=== PATIENT | male | born 1965 | race Caucasian/White ===

== ENCOUNTER 2017-01-04 22:15 | Inpatient (IN) | payer OTHER ==
[2017-01-04] MEDS ORDERED: ATROVENT IH ONE ×2 (22:31→22:36)
[2017-01-04] MEDS ORDERED: PROVENTIL IH ONE ×2 (22:31→22:36)
[2017-01-04] MEDS ORDERED: CATAPRES PO ONE (22:41)
--- NOTE | 2017-01-04 23:35 | XRay Report ---
FINAL REPORT PROCEDURE: XR CHEST 1V AP TECHNIQUE: Chest radiograph anteroposterior view. CPT 56874 HISTORY: Shortness of breath COMPARISON: No prior studies are available for comparison. FINDINGS: Heart: Normal. Mediastinum/Vessels: Normal. Lungs/Pleural space: The lungs are well-expanded. There are right perihilar and lower lobe infiltrates. There are no effusions or pneumothoraces.. Bony thorax: No acute osseous abnormality. Life support devices: None. IMPRESSION: The heart size is within normal limits. The lungs are well-expanded. There are right perihilar and lower lobe infiltrates. There are no effusions or pneumothoraces.
[2017-01-04 23:54] LABS: Hematocrit 35.7 % (35.5-45.6); Hemoglobin 11.8 gm/dl (11.8-15.2); Mean Corpuscular HGB Conc 33 % (32-34); Mean Corpuscular Hemoglobin 29 pg (28-32); Mean Corpuscular Volume 88 fl (84-94); Platelet Count 224 K/mm3 (140-440); Red Blood Count 4.04 M/mm3 (3.65-5.03); Red Cell Distribution Width 14.2 % (13.2-15.2); White Blood Count 9.9 K/mm3 (4.5-11.0)
[2017-01-05 00:08] LABS: Calcium 8.5 mg/dL (8.4-10.2)
[2017-01-05 00:09] LABS: Chloride 96.2 mmol/L (98-107); Potassium 4.1 mmol/L (3.6-5.0)
[2017-01-05] MEDS ORDERED: ZITHROMAX 500 MG in NACL 0.9% 250ML 250 ML IV ONE (02:33)
--- NOTE | 2017-01-05 02:33 | Emergency Department Report ---
ED Shortness of Breath HPI - General Chief Complaint: Dyspnea/Respdistress Stated Complaint: DIFFICULTY BREATHING Time Seen by Provider: 01/05/17 01:55 Source: patient, family (DAUGHTER), EMS Mode of arrival: Stretcher Limitations: No Limitations - History of Present Illness Initial Comments: PT WOKE UP YESTERDAY MORNING SHORT OF BREATH . HE HAS NOT HAD HIS BLOOD PRESSURE MEDICATION FOR MORE THAN 5 MONTHS. HE DENIES CHEST PAIN, HIS PRESSURE WAS 219/126 ON ARRIVAL AT THIS TIME IT IS 175/96. HE ADMITS TO LEG SWELLING ALL HIS LIFE. MD Complaint: shortness of breath -: Sudden Severity: severe Improves With: oxygen, rest Worsens With: movement Known History Of: other (htn) Associated Symptoms: denies other symptoms Treatments Prior to Arrival: none - Related Data Home Oxygen Therapy: No Allergies Allergy/AdvReac Type Severity Reaction Status Date / Time shellfish derived Allergy Anaphylaxis Verified 01/04/17 22:27 ED Review of Systems ROS: Stated complaint: DIFFICULTY BREATHING Other details as noted in HPI Constitutional: denies: chills, fever Eyes: denies: eye pain, eye discharge, vision change ENT: denies: ear pain, throat pain Respiratory: shortness of breath, SOB with exertion, SOB at rest. denies: cough , wheezing Cardiovascular: denies: chest pain, palpitations Endocrine: no symptoms reported Gastrointestinal: denies: abdominal pain, nausea, diarrhea Genitourinary: denies: urgency, dysuria Musculoskeletal: other (leg swelling). denies: back pain, joint swelling, arthralgia Skin: denies: rash, lesions Neurological: denies: headache, weakness, paresthesias Psychiatric: denies: anxiety, depression Hematological/Lymphatic: denies: easy bleeding, easy bruising ED Past Medical Hx - Past Medical History Hx Hypertension: Yes Hx Diabetes: Yes Hx Asthma: Yes - Surgical History Past Surgical History?: No - Social History Smoking Status: Never Smoker Substance Use Type: None ED Physical Exam - General Limitations: No Limitations General appearance: alert, in no apparent distress - Head Head exam: Present: atraumatic, normocephalic - Eye Eye exam: Present: normal appearance - ENT ENT exam: Present: mucous membranes moist - Neck Neck exam: Present: normal inspection - Respiratory Respiratory exam: Present: respiratory distress - Cardiovascular Cardiovascular Exam: Present: regular rate, normal rhythm, tachycardia (AT TIMES ). Absent: systolic murmur, diastolic murmur, rubs, gallop - GI/Abdominal GI/Abdominal exam: Present: soft, normal bowel sounds - Rectal Rectal exam: Present: deferred - Extremities Exam Extremities exam: Present: normal inspection, full ROM, pedal edema (ON RIGHT LEG ONLY) - Back Exam Back exam: Present: normal inspection - Neurological Exam Neurological exam: Present: alert, oriented X3, CN II-XII intact - Psychiatric Psychiatric exam: Present: normal affect, normal mood - Skin Skin exam: Present: warm, dry, intact, normal color, other (DRY SKIN). Absent: rash ED Course Vital Signs 01/04/17 01/04/17 01/04/17 22:21 22:23 22:25 Temperature Pulse Rate 98 H 98 H 96 H Respiratory 24 16 17 Rate Blood Pressure 219/126 219/126 Blood Pressure [Left] O2 Sat by Pulse 98 100 Oximetry 01/04/17 01/04/17 01/04/17 22:27 22:29 22:32 Temperature Pulse Rate 101 H 98 H Respiratory 22 21 24 Rate Blood Pressure 219/126 219/126 Blood Pressure [Left] O2 Sat by Pulse 100 100 97 Oximetry 01/04/17 01/04/17 01/04/17 22:39 22:54 23:27 Temperature 98.4 F Pulse Rate 97 H 97 H 101 H Respiratory 21 13 Rate Blood Pressure 219/133 225/113 Blood Pressure 219/133 [Left] O2 Sat by Pulse 98 98 Oximetry 01/04/17 01/04/17 01/04/17 23:29 23:30 23:31 Temperature Pulse Rate 100 H 102 H 100 H Respiratory 18 20 21 Rate Blood Pressure 225/113 211/114 211/114 Blood Pressure [Left] O2 Sat by Pulse 98 99 99 Oximetry 01/04/17 01/04/17 01/04/17 23:33 23:34 23:35 Temperature Pulse Rate 102 H 96 H 97 H Respiratory 14 17 18 Rate Blood Pressure 211/114 211/114 211/114 Blood Pressure [Left] O2 Sat by Pulse 96 98 98 Oximetry 01/04/17 01/04/17 01/04/17 23:37 23:39 23:41 Temperature Pulse Rate 96 H 96 H 99 H Respiratory 19 19 20 Rate Blood Pressure 211/114 211/114 211/114 Blood Pressure [Left] O2 Sat by Pulse 100 99 99 Oximetry 01/04/17 01/04/17 01/04/17 23:43 23:45 23:47 Temperature Pulse Rate 101 H 99 H 98 H Respiratory 15 21 20 Rate Blood Pressure 211/114 211/114 211/114 Blood Pressure [Left] O2 Sat by Pulse 98 100 98 Oximetry 01/04/17 01/04/17 01/04/17 23:49 23:50 23:51 Temperature Pulse Rate 100 H 99 H 102 H Respiratory 22 23 18 Rate Blood Pressure 211/114 211/114 211/114 Blood Pressure [Left] O2 Sat by Pulse 98 99 99 Oximetry 01/04/17 01/04/17 01/04/17 23:53 23:55 23:57 Temperature Pulse Rate 102 H 99 H 101 H Respiratory 22 20 21 Rate Blood Pressure 211/114 211/114 211/114 Blood Pressure [Left] O2 Sat by Pulse 100 99 99 Oximetry 01/04/17 01/05/17 01/05/17 23:59 00:00 00:01 Temperature Pulse Rate 106 H 105 H 105 H Respiratory 23 20 22 Rate Blood Pressure 211/114 233/125 233/125 Blood Pressure [Left] O2 Sat by Pulse 99 100 Oximetry 01/05/17 01/05/17 01/05/17 00:03 00:05 00:07 Temperature Pulse Rate 102 H 104 H 102 H Respiratory 22 23 18 Rate Blood Pressure 233/125 233/125 233/125 Blood Pressure [Left] O2 Sat by Pulse 99 97 99 Oximetry 01/05/17 01/05/17 01/05/17 00:09 00:11 00:13 Temperature Pulse Rate 99 H 101 H 101 H Respiratory 21 22 22 Rate Blood Pressure 233/125 233/125 233/125 Blood Pressure [Left] O2 Sat by Pulse 98 99 100 Oximetry 01/05/17 01/05/17 01/05/17 00:15 00:17 00:19 Temperature Pulse Rate 104 H 105 H 107 H Respiratory 23 21 21 Rate Blood Pressure 233/125 233/125 233/125 Blood Pressure [Left] O2 Sat by Pulse 96 92 94 Oximetry 01/05/17 01/05/17 01/05/17 00:21 00:23 00:24 Temperature Pulse Rate 106 H 107 H 108 H Respiratory 20 20 20 Rate Blood Pressure 233/125 233/125 233/125 Blood Pressure [Left] O2 Sat by Pulse 92 92 91 Oximetry 01/05/17 01/05/17 01/05/17 00:26 00:28 00:30 Temperature Pulse Rate 108 H 103 H 106 H Respiratory 21 20 21 Rate Blood Pressure 233/125 233/125 233/125 Blood Pressure [Left] O2 Sat by Pulse 93 89 90 Oximetry 01/05/17 01/05/17 01/05/17 00:31 00:33 00:35 Temperature Pulse Rate 108 H 104 H 105 H Respiratory 21 21 21 Rate Blood Pressure Blood Pressure [Left] O2 Sat by Pulse 93 91 89 Oximetry 01/05/17 01/05/17 01/05/17 00:37 00:39 00:41 Temperature Pulse Rate 105 H 105 H 104 H Respiratory 21 22 22 Rate Blood Pressure 187/105 Blood Pressure [Left] O2 Sat by Pulse 90 89 90 Oximetry 01/05/17 01/05/17 01/05/17 00:43 00:45 00:47 Temperature Pulse Rate 104 H 104 H 101 H Respiratory 21 19 22 Rate Blood Pressure 187/105 187/105 187/105 Blood Pressure [Left] O2 Sat by Pulse 91 88 100 Oximetry 01/05/17 01/05/17 01/05/17 00:49 00:51 00:53 Temperature Pulse Rate 99 H 99 H 101 H Respiratory 22 21 20 Rate Blood Pressure 187/105 187/105 187/105 Blood Pressure [Left] O2 Sat by Pulse 100 100 100 Oximetry 01/05/17 00:55 Temperature Pulse Rate 101 H Respiratory 21 Rate Blood Pressure 187/105 Blood Pressure [Left] O2 Sat by Pulse 100 Oximetry ED Medical Decision Making - Lab Data Result diagrams: 01/04/17 23:30 01/04/17 23:30 - EKG Data -: EKG Interpreted by [place] EKG shows normal: sinus rhythm, axis, QRS complexes Rate: normal - EKG Data Interpretation: nonspecific ST-T wave dixon (left atrial enlargement), LVH - Radiology Data Radiology results: report reviewed (CXR; RIGHT PERIHILAR AND RIGHT LOWER LOBE INFILTRATE), image reviewed (CT ofchest/abdomen: bilateral pleural effusion, pulmonary edema) Critical care time in (mins) excluding proc time.: 30 Critical care attestation.: If time is entered above; I have spent that time in minutes in the direct care of this critically ill patient, excluding procedure time. luz ED Disposition Clinical Impression: Acute dyspnea, Pleural effusion due to CHF (congestive heart failure), LVH ( left ventricular hypertrophy), LAE (left atrial enlargement) Acute CHF Qualifiers: Congestive heart failure type: unspecified congestive heart failure type Qualified Code(s): I50.9 - Heart failure, unspecified Renal failure Qualifiers: Renal failure chronicity: acute Acute renal failure type: unspecified Qualified Code(s): N17.9 - Acute kidney failure, unspecified Disposition: 09 OP ADMIT IP TO THIS HOSP Is pt being admited?: Yes Does the pt Need Aspirin: No Condition: Serious Referrals: PRIMARY CARE, [Primary Care Provider] - 3-5 Days Time of Disposition: 04:35 (case reviewed with dr tello and he will admit the pt to the hospital)
[2017-01-05] MEDS ORDERED: ROCEPHIN/NS 1 GM/50 ML 1 GM/50 ML BAG IV ONE (03:33)
--- NOTE | 2017-01-05 04:53 | Cat Scan Report ---
FINAL REPORT PROCEDURE: CT CHEST WO CON TECHNIQUE: Computerized axial tomography of the chest was performed without contrast material. This study is performed without intravenous contrast and the sensitivity for pathology, including neoplasms, adenopathy, abscess, pulmonary embolism and aortic dissection, is reduced. HISTORY: SOB,CHEST PAIN COMPARISON: No prior studies are available for comparison. TECHNICAL QUALITY: Satisfactory. FINDINGS: Heart and pericardium: Normal. Thoracic aorta: Normal. Pulmonary vasculature: Normal. Lymph nodes: There are prominent mediastinal lymph nodes.. Lungs: Lungs are well-expanded. There is bilateral pulmonary edema greater at the lung bases.. Pleural space: There are small bilateral pleural effusions. There are no pneumothoraces.. Musculoskeletal structures: No significant abnormality. Upper abdominal structures: There is incidental partially imaged low-density mass in the right adrenal gland measuring 1.7 x 2.8 centimeters most likely representing an incidental adrenal adenoma.. IMPRESSION: Heart size is normal. There are prominent mediastinal lymph nodes.. Lungs are well-expanded. There is bilateral pulmonary edema greater at the lung bases.. This suggests possible congestive heart failure. There are small bilateral pleural effusions. There are no pneumothoraces.. There is incidental partially imaged low-density mass in the right adrenal gland measuring 1.7 x 2.8 centimeters most likely representing an incidental adrenal adenoma.. .
--- NOTE | 2017-01-05 05:22 | Cat Scan Report ---
FINAL REPORT PROCEDURE: CT ABDOMEN PELVIS WO CON TECHNIQUE: Computerized axial tomography of the abdomen and pelvis was performed without intravenous contrast. This study is performed without intravascular contrast material and its sensitivity for abdominal and pelvic pathology, including neoplasms, inflammation, abscess, free fluid, thrombosis, arterial dissection and infarction, is reduced compared with a contrast enhanced study. HISTORY: EXAMINE AORTA COMPARISON: No prior studies are available for comparison. FINDINGS: Visualized lower thorax: There is pulmonary edema at the lung bases. There are small bilateral pleural effusions.. Liver: Normal size and attenuation. Spleen: Normal size and attenuation. Gallbladder and biliary system: Normal. Pancreas: Normal. Adrenals: There is a 2.3 centimeter adenoma in the right adrenal gland.. Kidneys: There are no kidney stones. There is no hydronephrosis.. GI tract: There is no bowel obstruction, colitis or enteritis. The appendix is normal.. Lymph nodes and mesentery: Normal. Vasculature: Normal. Bladder: Urinary bladder wall is thickened. There is no mass.. Reproductive organs: Normal. Peritoneum: There is no ascites or free air, abscess or adenopathy.. Musculoskeletal structures: No significant abnormality. There is degenerative disc change at L5-S1. Other: There is an umbilical hernia defect containing fat only.. IMPRESSION: There is pulmonary edema at the lung bases. There are small bilateral pleural effusions.. There is a 2.3 centimeter adenoma in the right adrenal gland.. There are no kidney stones. There is no hydronephrosis.. There is no bowel obstruction, colitis or enteritis. The appendix is normal.. Urinary bladder wall is thickened. There is no mass.. There is no ascites or free air, abscess or adenopathy.. There is an umbilical hernia defect containing fat only.. .
[2017-01-05] MEDS ORDERED: LASIX IV ONE ×2 (05:50→08:12)
[2017-01-05] MEDS ORDERED: DULCOLAX PR PRN (08:24)
--- NOTE | 2017-01-05 08:33 | Nuclear Medicine Report ---
LUNG SCAN, VENTILATION AND PERFUSION: History: Short of breath, elevated d-dimer. Technique: 5mci of Tc99m MAA was infused for the perfusion images. 15mci XE 133 gas was inhaled for the ventilatory images. Correlation is made with a chest x-ray dated 01/04/17 at 2320 hrs. Findings: Inhalation of Xenon gas demonstrates a normal distribution of the activity throughout both lungs. The wash out phases demonstrates mild retention of the radiotracer in the left lower lobe. After injection of Technetium 99m macroaggregated albumin gamma camera imaging of the lungs in multiple projections demonstrates normal pulmonary contours with a homogeneous distribution of activity. No focal areas of perfusion deficiency are identified. IMPRESSION: Low probability for pulmonary embolus.
--- NOTE | 2017-01-05 08:37 | History and Physical Report ---
<DAISY SCHULTE - Last Filed: 01/05/17 15:51> History of Present Illness Date of examination: 01/05/17 Date of admission: 01/05/2017 Chief complaint: Shortness of breath History of present illness: Patient is a 53 years old Afriacn Faroese male with past medical history congestive heart failure and hypertension, who, present to the Emergency Department difficulty of breathing. Patient developed difficulty of breathing yesterday and he has had progressive worsening of shortness of breath. To the point he felt like he could not catch his breath and his daughter brought him to the Emergency Department. Edema to bilateral lower extremity but stated that his legs are always swelling for the past few years. Patient denies he has had no fevers, chills, or night sweats. No hx of recurrent pneumonia. He has no sick contact, TB exposure. Patient non-complains with his antihypertensive medications for the past 5 month due to financial difficulties. Past History Past Medical History: heart failure, hypertension Past Surgical History: No surgical history Social history: denies: smoking, alcohol abuse Family history: CAD, hypertension Medications and Allergies Allergies Allergy/AdvReac Type Severity Reaction Status Date / Time shellfish derived Allergy Anaphylaxis Verified 01/04/17 22:27 Home Medications Medication Instructions Recorded Confirmed Last Taken Type No Known Home Medications [No 01/05/17 01/05/17 Unknown History Reported Home Medications] Active Meds: Active Medications Acetaminophen (Tylenol) 650 mg PO Q4H PRN PRN Reason: Pain MILD(1-3)/Fever >100.5/SANTOS Albuterol (Proventil) 5 mg IH ONCE ONE Stop: 01/05/17 08:27 Amlodipine Besylate (Norvasc) 10 mg PO ONCE ONE Stop: 01/05/17 08:31 Bisacodyl (Dulcolax) 10 mg SD QDAY PRN PRN Reason: Constipation unrelieved by MOM Enoxaparin Sodium (Lovenox) 40 mg SUB-Q QDAY [facility] Hydralazine HCl (Apresoline) 10 mg IV Q4H PRN PRN Reason: SBP>160 Azithromycin 500 mg/ Sodium (Chloride) 250 mls @ 250 mls/hr IV Q24HR [facility] Ceftriaxone Sodium (Rocephin/Ns 1 Gm/50 Ml) 1 gm in 50 mls @ 100 mls/hr IV Q24HR [facility] PRN Reason: Protocol Review of Systems Constitutional: no weight loss, no weight gain, no fever Ears, nose, mouth and throat: no nasal congestion, no nasal discharge, no sinus pressure Cardiovascular: shortness of breath, dyspnea on exertion, paroxysmal nocturnal dyspnea (on), no rapid/irregular heart beat, no edema, no syncope Respiratory: shortness of breath, dyspnea on exertion Gastrointestinal: no diarrhea, no constipation, no change in bowel habits, no hematemesis Genitourinary Male: no discharge, no urinary frequency, no urinary hesitancy Rectal: no incontinence, no bleeding Musculoskeletal: no neck stiffness, no shooting arm pain, no arm numbness/ tingling, no low back pain, no shooting leg pain Integumentary: no redness, no sores, no wounds Neurological: no paralysis, no weakness, no parathesias, no numbness Psychiatric: no insomnia, no hypersomnia, no change in appetite, no change in libido Endocrine: no cold intolerance, no heat intolerance, no polyphagia, no excessive thirst Hematologic/Lymphatic: no easy bruising, no easy bleeding Allergic/Immunologic: no urticaria, no allergic rhinitis Exam - Constitutional Vitals: Temp Pulse Resp BP Pulse Ox 98.4 F 101 H 21 187/105 100 01/04/17 22:39 01/05/17 00:55 01/05/17 00:55 01/05/17 00:55 01/05/17 00:55 General appearance: Present: mild distress, other (on 7LNC with Spo2 >95%) - EENT Eyes: Present: PERRL ENT: hearing intact - Neck Neck: Present: supple - Respiratory Respiratory effort: normal Respiratory: bilateral: wheezing - Cardiovascular Rhythm: regular Heart Sounds: Present: S1 & S2 - Extremities Extremity abnormal: edema (bilateral lower extremity) - Abdominal General gastrointestinal: Present: soft, non-tender Male genitourinary: Present: deferred - Rectal Rectal Exam: deferred - Integumentary Integumentary: Present: clear, warm, dry - Musculoskeletal Musculoskeletal: strength equal bilaterally - Psychiatric Psychiatric: appropriate mood/affect - Neurologic Neurologic: CNII-XII intact - Allied Health Allied health notes reviewed: nursing Results - Labs CBC & Chem 7: 01/04/17 23:30 01/04/17 23:30 Labs: Laboratory Last Values WBC 9.9 K/mm3 (4.5-11.0) 01/04/17 23:30 RBC 4.04 M/mm3 (3.65-5.03) 01/04/17 23:30 Hgb 11.8 gm/dl (11.8-15.2) 01/04/17 23:30 Hct 35.7 % (35.5-45.6) 01/04/17 23:30 MCV 88 fl (84-94) 01/04/17 23:30 MCH 29 pg (28-32) 01/04/17 23:30 MCHC 33 % (32-34) 01/04/17 23:30 RDW 14.2 % (13.2-15.2) 01/04/17 23:30 Plt Count 224 K/mm3 (140-440) 01/04/17 23:30 Lymph % (Auto) Internal Grinder Tender 01/04/17 23:30 [place] % (Auto) Internal Grinder Tender 01/04/17 23:30 Eos % (Auto) Internal Grinder Tender 01/04/17 23:30 Baso % (Auto) Internal Grinder Tender 01/04/17 23:30 Lymph # Internal Grinder Tender 01/04/17 23:30 [place] # Internal Grinder Tender 01/04/17 23:30 Eos # Internal Grinder Tender 01/04/17 23:30 Baso # Internal Grinder Tender 01/04/17 23:30 Seg Neutrophils % Internal Grinder Tender 01/04/17 23:30 Seg Neutrophils # Internal Grinder Tender 01/04/17 23:30 D-Dimer 6567.37 ng/mlDDU (0-234) H 01/05/17 02:35 Sodium 137 mmol/L (137-145) 01/04/17 23:30 Potassium 4.1 mmol/L (3.6-5.0) 01/04/17 23:30 Chloride 96.2 mmol/L (98-107) L 01/04/17 23:30 Carbon Dioxide 23 mmol/L (22-30) 01/04/17 23:30 Anion Gap 22 mmol/L 01/04/17 23:30 BUN 44 mg/dL (9-20) H 01/04/17 23:30 Creatinine 5.5 mg/dL (0.8-1.5) H 01/04/17 23:30 Estimated GFR 11 ml/min 01/04/17 23:30 BUN/Creatinine Ratio 8 % 01/04/17 23:30 Glucose 289 mg/dL (75-100) H 01/04/17 23:30 Calcium 8.5 mg/dL (8.4-10.2) 01/04/17 23:30 Troponin T 0.076 ng/mL (0.00-0.029) H 01/04/17 23:30 NT-Pro-B Natriuret Pep 4126 pg/mL (0-450) H 01/05/17 02:35 Triglycerides 120 mg/dL (2-149) 01/04/17 23:30 Cholesterol 196 mg/dL (50-199) 01/04/17 23:30 LDL Cholesterol Direct 112 mg/dL (50-130) 01/04/17 23:30 HDL Cholesterol 60 mg/dL (40-59) H 01/04/17 23:30 Cholesterol/HDL Ratio 3.26 % 01/04/17 23:30 - Imaging and Cardiology Chest x-ray: image reviewed (there are right perihilar and lower lobe infiltrates. No effusion or pneumothorax) Assessment and Plan Assessment and plan: Patient is a 53 years old Afriacn Faroese male with past medical history congestive heart failure and hypertension, who, present to the Emergency Department difficulty of breathing. Patient developed difficulty of breathing yesterday and he has had progressive worsening of shortness of breath. Acute respiratory failure with hypoxia Secondary to congestive heart failure. Patient oxygen saturation improved with 2LNC; currently SPO2 98%. No acute respiratory distress noted. Aggressive Nebulizers/Inhalers ABG when necessary Oxygen supplement Supportive care Acute on chronic congestive heart failure Echocardiogram ordered Restart on Diuresis, beta blockers and ACEI/ARB Strict I&O's and daily weights Low-sodium/cardiac diet/fluid restriction Closely monitor electrolytes Cardiology evaluation Hypertensive urgency Patient noncompliance with antihypertensive medication Started on hydralazine and isosorbide. IV hydralazine for SBP>160 Closely monitor blood pressure Acute renal failure/ vasomotor nephropathy Avoid nephrotoxicity Renal ultrasound Repeat [facility] Nephrology financial reporting consultant Pneumonia Chest xray revealed right perihilar and lower lobe infiltrates Initiated empiric IV Rocephin and azithromycin. We will discontinue if no fever Supportive care Elevated D-dimer VQ scan no evidence of PE VL LE doppler ordered Elevated troponin Most likely due to CHF We will get serial troponin Cardiology consulted DVT prophylaxis Heparin Advance Directives: Yes VTE prophylaxis?: Chemical Contraindication Mechanical VTE Prophylaxis: Treatment Not Indicated Plan of care discussed with patient/family: Yes <FRITZ REINA Tam - Last Filed: 01/05/17 18:04> History of Present Illness Date of admission: 01/05/17 08:24 Medications and Allergies Active Meds: Active Medications Acetaminophen (Tylenol) 650 mg PO Q4H PRN PRN Reason: Pain MILD(1-3)/Fever >100.5/SANTOS Atorvastatin Calcium (Lipitor) 40 mg PO QHS [facility] Bisacodyl (Dulcolax) 10 mg SD QDAY PRN PRN Reason: Constipation unrelieved by MOM Carvedilol (Coreg) 12.5 mg PO BID [facility] Last Admin: 01/05/17 15:37 Dose: 12.5 mg Enoxaparin Sodium (Lovenox) 30 mg SUB-Q QDAY [facility] Last Admin: 01/05/17 13:44 Dose: 30 mg Hydralazine HCl (Apresoline) 10 mg IV Q4H PRN PRN Reason: SBP>160 Last Admin: 01/05/17 15:33 Dose: 10 mg Hydralazine HCl (Apresoline) 50 mg PO Q8HR [facility] Last Admin: 01/05/17 13:46 Dose: 50 mg Ceftriaxone Sodium (Rocephin/Ns 1 Gm/50 Ml) 1 gm in 50 mls @ 100 mls/hr IV Q24HR [facility] PRN Reason: Protocol Azithromycin 500 mg/ Sodium (Chloride) 250 mls @ 250 mls/hr IV DAILY [facility] Isosorbide Mononitrate (Imdur) 60 mg PO QDAY [facility] Last Admin: 01/05/17 17:40 Dose: 60 mg Exam - Constitutional Vitals: Temp Pulse Resp BP Pulse Ox 97.9 F 91 H 17 186/84 99 01/05/17 16:49 01/05/17 17:34 01/05/17 16:49 01/05/17 16:49 01/05/17 16:49 Results - Labs CBC & Chem 7: 01/04/17 23:30 01/04/17 23:30 Labs: Laboratory Last Values WBC 9.9 K/mm3 (4.5-11.0) 01/04/17 23:30 RBC 4.04 M/mm3 (3.65-5.03) 01/04/17 23:30 Hgb 11.8 gm/dl (11.8-15.2) 01/04/17 23:30 Hct 35.7 % (35.5-45.6) 01/04/17 23:30 MCV 88 fl (84-94) 01/04/17 23:30 MCH 29 pg (28-32) 01/04/17 23:30 MCHC 33 % (32-34) 01/04/17 23:30 RDW 14.2 % (13.2-15.2) 01/04/17 23:30 Plt Count 224 K/mm3 (140-440) 01/04/17 23:30 Lymph % (Auto) Internal Grinder Tender 01/04/17 23:30 [place] % (Auto) Internal Grinder Tender 01/04/17 23:30 Eos % (Auto) Internal Grinder Tender 01/04/17 23:30 Baso % (Auto) Internal Grinder Tender 01/04/17 23:30 Lymph # Internal Grinder Tender 01/04/17 23:30 [place] # Internal Grinder Tender 01/04/17 23:30 Eos # Internal Grinder Tender 01/04/17 23:30 Baso # Internal Grinder Tender 01/04/17 23:30 Seg Neutrophils % Internal Grinder Tender 01/04/17 23:30 Seg Neutrophils # Internal Grinder Tender 01/04/17 23:30 D-Dimer 6567.37 ng/mlDDU (0-234) H 01/05/17 02:35 Sodium 137 mmol/L (137-145) 01/04/17 23:30 Potassium 4.1 mmol/L (3.6-5.0) 01/04/17 23:30 Chloride 96.2 mmol/L (98-107) L 01/04/17 23:30 Carbon Dioxide 23 mmol/L (22-30) 01/04/17 23:30 Anion Gap 22 mmol/L 01/04/17 23:30 BUN 44 mg/dL (9-20) H 01/04/17 23:30 Creatinine 5.5 mg/dL (0.8-1.5) H 01/04/17 23:30 Estimated GFR 11 ml/min 01/04/17 23:30 BUN/Creatinine Ratio 8 % 01/04/17 23:30 Glucose 289 mg/dL (75-100) H 01/04/17 23:30 Calcium 8.5 mg/dL (8.4-10.2) 01/04/17 23:30 Troponin T 0.076 ng/mL (0.00-0.029) H 01/04/17 23:30 NT-Pro-B Natriuret Pep 4126 pg/mL (0-450) H 01/05/17 02:35 Triglycerides 120 mg/dL (2-149) 01/04/17 23:30 Cholesterol 196 mg/dL (50-199) 01/04/17 23:30 LDL Cholesterol Direct 112 mg/dL (50-130) 01/04/17 23:30 HDL Cholesterol 60 mg/dL (40-59) H 01/04/17 23:30 Cholesterol/HDL Ratio 3.26 % 01/04/17 23:30 Assessment and Plan Assessment and plan: I saw and evaluated the patient. I agree with the findings and the plan of care as documented in the Nurse Practitioner's~note, with the following corrections and additions. patient states no prior renal disease, last hospitalization was a year ago in [place]. He ran out of his meds few weeks ago. will hold ACEI and HCTZ. gradually control BP with about 25% decrease in first 24 hours goal.
[2017-01-05] MEDS ORDERED: LOVENOX SUB-Q SCH (10:00)
[2017-01-05] MEDS ORDERED: LOVENOX SUB-Q ONE (10:53)
[2017-01-05] MEDS ORDERED: NORVASC ONE (10:53)
[2017-01-05] MEDS ORDERED: ZITHROMAX 500 MG in NACL 0.9% 250ML 250 ML IV SCH (11:00)
[2017-01-05] MEDS ORDERED: NORVASC PO ONE (11:00)
[2017-01-05] MEDS ORDERED: PROVENTIL IH ONE ×2 (11:00→13:43)
[2017-01-05] MEDS: LOVENOX SUB-Q SCH (13:44)
[2017-01-05] MEDS: APRESOLINE PO SCH ×2 (13:46→21:40)
[2017-01-05] MEDS: APRESOLINE IV PRN (15:33)
--- NOTE | 2017-01-05 15:34 | Consultation ---
History of Present Illness Consult date: 01/05/17 Requesting physician: DAISY SCHULTE Consult reason: congestive heart failure History of present illness: The pt is a 51 YO male with a past medical history significant for HTN and DM. He is previously unknown to our practice. 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 He states that he has not taken any anti- hypertensive medications in 5 months due to financial difficulties. He denies any chest pain, palpitations, n/v, diaphoresis, dizziness or syncope. CXR following admission shows pulm edema; pro-BNP 4100; serum Cr. 5.5; serum K+ 4.1 ; DDimer elevated but V/Q scan with low probability for PE. BPs following admission were found to be elevated with admission BP 219/126. Pt denies any prior cardiac workup. Past History Past Medical History: diabetes, hypertension Past Surgical History: No surgical history Social history: denies: smoking, alcohol abuse Family history: CAD, hypertension Medications and Allergies Allergies Allergy/AdvReac Type Severity Reaction Status Date / Time shellfish derived Allergy Anaphylaxis Verified 01/04/17 22:27 Home Medications Medication Instructions Recorded Confirmed Last Taken Type No Known Home Medications [No 01/05/17 01/05/17 Unknown History Reported Home Medications] Active Meds: Active Medications Acetaminophen (Tylenol) 650 mg PO Q4H PRN PRN Reason: Pain MILD(1-3)/Fever >100.5/SANTOS Bisacodyl (Dulcolax) 10 mg CO QDAY PRN PRN Reason: Constipation unrelieved by MOM Carvedilol (Coreg) 12.5 mg PO BID [facility] Enoxaparin Sodium (Lovenox) 30 mg SUB-Q QDAY [facility] Last Admin: 01/05/17 13:44 Dose: 30 mg Hydralazine HCl (Apresoline) 10 mg IV Q4H PRN PRN Reason: SBP>160 Hydralazine HCl (Apresoline) 50 mg PO Q8HR [facility] Last Admin: 01/05/17 13:46 Dose: 50 mg Ceftriaxone Sodium (Rocephin/Ns 1 Gm/50 Ml) 1 gm in 50 mls @ 100 mls/hr IV Q24HR [facility] PRN Reason: Protocol Azithromycin 500 mg/ Sodium (Chloride) 250 mls @ 250 mls/hr IV DAILY [facility] Isosorbide Mononitrate (Imdur) 60 mg PO QDAY [facility] Review of Systems Constitutional: no weight loss, no weight gain, no fever, no chills, no sweats Ears, nose, mouth and throat: no ear pain, no nose pain, no sinus pressure, no sinus pain Cardiovascular: orthopnea, edema (BLE), shortness of breath, dyspnea on exertion , paroxysmal nocturnal dyspnea, high blood pressure, leg edema, no chest pain, no palpitations, no rapid/irregular heart beat, no syncope, no lightheadedness Respiratory: shortness of breath, dyspnea on exertion, no cough, no congestion, no wheezing, no pain on inspiration Gastrointestinal: no abdominal pain, no nausea, no vomiting, no diarrhea, no constipation, no change in bowel habits Genitourinary Male: no dysuria, no hematuria, no flank pain, no discharge, no urinary frequency, no urinary hesitancy Musculoskeletal: no neck stiffness, no neck pain, no shooting arm pain, no arm numbness/tingling, no low back pain, no shooting leg pain, no leg numbness/ tingling, no redness of joints Integumentary: no rash, no pruritis, no redness, no sores, no wounds Neurological: no head injury, no paralysis, no weakness, no parathesias, no numbness, no tingling, no seizures, no syncope Psychiatric: no anxiety Endocrine: no cold intolerance, no heat intolerance Hematologic/Lymphatic: no easy bruising, no easy bleeding, no lymphadenopathy Allergic/Immunologic: no urticaria, no wheezing, no persistent infections Physical Examination Vital Signs Pulse Resp 98 H 24 01/04/17 22:21 01/04/17 22:21 General appearance: no acute distress HEENT: Positive: PERRL, Normocephaly, Mucus Membranes Moist Neck: Positive: neck supple, trachea midline Cardiac: Positive: Reg Rate and Rhythm, S1/S2 Lungs: Positive: Decreased Breath Sounds Neuro: Positive: Grossly Intact, Cranial Nerve 2-12 Intact Abdomen: Positive: Unremarkable, Soft, Active Bowel Sounds. Negative: Tender Skin: Positive: Clear. Negative: Rash Musculoskeletal: No Pain, Normal Range of Motion Extremities: Present: edema (trace BLE) Results 01/04/17 23:30 01/04/17 23:30 - Imaging and Cardiology Echo: pending EKG: report reviewed, image reviewed EKG interpretations - Telemetry EKG Rhythm: Sinus Rhythm - EKG Sinus rhythms and dysrhythmias: sinus rhythm Chamber hypertrophy or enlargement: left ventricular hypertro Repolarization changes or abnormalities: repolarization abn secondary to ventricular hypertrophy Assessment and Plan Assessment: Acute heart failure - pulm edema on admission CXR Uncontrolled HTN DM Acute renal failure Elevated DDimer - V/Q scan with low probability for PE Dyslipidemia Plan: Obtain echo. Optimize anti-hypertensive regimen - initiate coreg and imdur. Cont hydralazine. Initiate lipitor. Await nephrology consultation. Will defer volume optimization to nephrology. Assessment and plan reviewed with pt at bedside. The patient has been seen in conjunction with Dr. KARYN Sanchez who agrees with the assessment and plan of care.
[2017-01-05] MEDS: COREG PO SCH ×2 (15:37→21:39)
[2017-01-05] MEDS ORDERED: COREG ONE (15:38)
[2017-01-05] MEDS: IMDUR PO SCH (17:40)
[2017-01-05] MEDS ORDERED: LASIX IV SCH (18:00)
[2017-01-06] MEDS ORDERED: DULCOLAX PR PRN (02:00)
[2017-01-06 06:16] LABS: Basophils % (Auto) 0.2 % (0.0-1.8); Eosinophils % (Auto) 0.7 % (0.0-4.3); Hematocrit 30.3 % (35.5-45.6); Hemoglobin 10.4 gm/dl (11.8-15.2); Mean Corpuscular HGB Conc 34 % (32-34); Mean Corpuscular Hemoglobin 30 pg (28-32); Mean Corpuscular Volume 88 fl (84-94); Platelet Count 212 K/mm3 (140-440); Red Blood Count 3.44 M/mm3 (3.65-5.03); Red Cell Distribution Width 14.4 % (13.2-15.2); White Blood Count 8.8 K/mm3 (4.5-11.0)
[2017-01-06] MEDS: APRESOLINE PO SCH ×3 (06:24→21:39)
[2017-01-06] MEDS: TYLENOL PO PRN ×2 (06:54→17:47)
[2017-01-06 06:56] LABS: Calcium 8.4 mg/dL (8.4-10.2); Chloride 100.2 mmol/L (98-107); Potassium 3.8 mmol/L (3.6-5.0)
[2017-01-06] MEDS ORDERED: ROCEPHIN/NS 1 GM/50 ML 1 GM/50 ML BAG IV SCH (10:00)
--- NOTE | 2017-01-06 10:04 | Ultrasound Report ---
ULTRASOUND RENAL BILATERAL HISTORY: Acute renal failure. TECHNIQUE: transabdominal ultrasound with color Doppler interrogation. FINDINGS: The right kidney measures 10.6 x 5.3 x 5.3cm. Right renal cortex: 1.6cm. The left kidney measures 10.9 x 4.6 x 5.8cm. Left renal cortex: 1.8cm. The kidneys are normal size, contour and position. There is increased renal parenchymal echotexture bilaterally. Corticomedullary differentiation is preserved. No evidence for cystic disease, mass, hydronephrosis or perinephric fluid. The views of the bladder and the region of the ureters appear normal. IMPRESSION: Normal size but slightly echogenic kidneys consistent with nonspecific renal parenchymal disease. No obstructive uropathy.
--- NOTE | 2017-01-06 10:07 | Consultation ---
History of Present Illness - Reason for Consult Consult date: 01/06/17 acute renal failure, chronic renal failure, accelerated hypertension Requesting physician: FRITZ REINA - History of Present Illness This is a 53 years old Afriacn Citizen Of [place] male with past medical history hypertension, type 2 DM, congestive heart failure, who did not have regular medical follow up for years since he does not have insurance, who presents to the Emergency Department with shortness of breath, dyspnea on exertion, chest tigntness and b/l lower extremity swelling for the last few weeks. In ER patient was found to have accelerated hypertension with BP as high as 220/120s mmHg, CXR showed evidence of pulmonary edema, and labs showed elevated BUN/Cr at 46/5.7mg/dl. Renal consult is requested for management of AMY vs CKD and volume control. Patient denies fevers, chills, or night sweats, no history of recurrent pneumonia, no sick contact, TB exposure. Pt reports frequent nausea and non-bloody, non-bilious vomiting 1-2 times weekly along with increased urinary frequency, but decreased volume over the past few months. Patient non- compliance with his antihypertensive medications for the past 5 month due to financial difficulties. pt is not aware of any kidney problems in the past, denies recent NSAIDs use or IV contrast exposure. Past History Past Medical History: heart failure, hypertension Past Surgical History: No surgical history Social history: denies: smoking, alcohol abuse Family history: CAD, hypertension Medications and Allergies Allergies Allergy/AdvReac Type Severity Reaction Status Date / Time shellfish derived Allergy Anaphylaxis Verified 01/04/17 22:27 Home Medications Medication Instructions Recorded Confirmed Last Taken Type No Known Home Medications [No 01/05/17 01/05/17 Unknown History Reported Home Medications] Active Meds: Active Medications Acetaminophen (Tylenol) 650 mg PO Q4H PRN PRN Reason: Pain MILD(1-3)/Fever >100.5/SANTOS Last Admin: 01/06/17 06:54 Dose: 650 mg Atorvastatin Calcium (Lipitor) 40 mg PO QHS [facility] Last Admin: 01/05/17 21:39 Dose: 40 mg Bisacodyl (Dulcolax) 10 mg [place] QDAY PRN PRN Reason: Constipation unrelieved by MOM Carvedilol (Coreg) 12.5 mg PO BID [facility] Last Admin: 01/05/17 21:39 Dose: 12.5 mg Enoxaparin Sodium (Lovenox) 30 mg SUB-Q QDAY [facility] Last Admin: 01/05/17 13:44 Dose: 30 mg Hydralazine HCl (Apresoline) 10 mg IV Q4H PRN PRN Reason: SBP>160 Last Admin: 01/05/17 15:33 Dose: 10 mg Hydralazine HCl (Apresoline) 50 mg PO Q8HR [facility] Last Admin: 01/06/17 06:24 Dose: 50 mg Ceftriaxone Sodium (Rocephin/Ns 1 Gm/50 Ml) 1 gm in 50 mls @ 100 mls/hr IV Q24HR [facility] PRN Reason: Protocol Azithromycin 500 mg/ Sodium (Chloride) 250 mls @ 250 mls/hr IV DAILY [facility] Isosorbide Mononitrate (Imdur) 60 mg PO QDAY [facility] Last Admin: 01/05/17 17:40 Dose: 60 mg Review of Systems All systems: negative Constitutional: fatigue Cardiovascular: chest pain, orthopnea, edema, shortness of breath, dyspnea on exertion, paroxysmal nocturnal dyspnea, high blood pressure, leg edema Exam - Vital Signs Vital signs: Vital Signs Pulse Resp 98 H 24 01/04/17 22:21 01/04/17 22:21 - General Appearance General appearance: well-developed, well-nourished, appears stated age EENT: ATNC, PERRL, mucous membranes moist Neck: Present: neck supple Respiratory: Decreased Breath Sounds Heart: regular, S1S2 Gastrointestinal: Present: normoactive bowel sounds Integumentary: no rash, other (1+ edema b/l LE ) Neurologic: no focal deficit, alert and oriented x3, gait normal, CN 3-12 intact Psychiatric: mood/affect appropriate, cooperative Results - Lab Results 01/06/17 05:47 01/06/17 05:47 Most recent lab results Calcium 8.4 mg/dL (8.4-10.2) 01/06/17 05:47 Urine Creatinine 112.9 mg/dL (0.1-20.0) H 01/05/17 20:53 Urine Sodium 54 mmol/L 01/05/17 20:53 Urine Total Protein 248 mg/dL (5-11.8) H 01/05/17 20:53 Laboratory Tests 01/04/17 01/05/17 01/05/17 23:30 02:35 20:09 Glucose POC Glucose Hemoglobin A1c Calcium Troponin T 0.076 H 0.090 H NT-Pro-B Natriuret Pep 4126 H Triglycerides 120 Cholesterol 196 LDL Cholesterol Direct 112 HDL Cholesterol 60 H Cholesterol/HDL Ratio 3.26 Urine Creatinine Urine Sodium Urine Total Protein 01/05/17 01/05/17 01/06/17 20:33 20:53 05:47 Glucose 129 H POC Glucose 190 H Hemoglobin A1c Calcium 8.4 Troponin T NT-Pro-B Natriuret Pep Triglycerides Cholesterol LDL Cholesterol Direct HDL Cholesterol Cholesterol/HDL Ratio Urine Creatinine 112.9 H Urine Sodium 54 Urine Total Protein 248 H 01/06/17 06:00 Glucose POC Glucose Hemoglobin A1c 8.0 H Calcium Troponin T NT-Pro-B Natriuret Pep Triglycerides Cholesterol LDL Cholesterol Direct HDL Cholesterol Cholesterol/HDL Ratio Urine Creatinine Urine Sodium Urine Total Protein Assessment and Plan - Patient Problems (1) Hypertensive emergency Current Visit: Yes Status: Acute Plan to address problem: BP improved with IV hydralazine prn, also transitioned to po BP meds, incl,. amlodipine, hydralazine, ISMN, carvedilol. Will monitor on current meds. hold SCARLET-I/ARB for now given AMY on CKD. (2) Acute CHF Current Visit: Yes Status: Acute Qualifiers: Congestive heart failure type: unspecified congestive heart failure type Qualified Code(s): I50.9 - Heart failure, unspecified Plan to address problem: cont IV diuresis with lasix, BB. SCARLET-I/ARB contraindicated due to advanced kidney disease. If volume status does not improve further with IV diuresis will need to consider HD/UF. (3) Type 2 diabetes mellitus with diabetic chronic kidney disease Current Visit: Yes Status: Chronic Qualifiers: Diabetes mellitus usp insulin use: with usp use Chronic kidney disease stage: stage 5, not on chronic dialysis Qualified Code(s): E11.22 - Type 2 diabetes mellitus with diabetic chronic kidney disease; N18.5 - Chronic kidney disease, stage 5; N18.5 - Chronic kidney disease, stage 5; N18.5 - Chronic kidney disease, stage 5; N18.5 - Chronic kidney disease, stage 5; Z79.4 - shelter (current) use of insulin; Z79.4 - marine oil terminal superintendent (current) use of insulin ; Z79.4 - shelter (current) use of insulin; Z79.4 - marine oil terminal superintendent (current) use of insulin Plan to address problem: glucose control as per primary attending. A1C 8 (4) Acute kidney injury Current Visit: Yes Status: Acute Plan to address problem: suspect acute kidney injury due to malignant hypertension, superimposed on chronic hypertensive nephropathy. no acute uremic symptoms present at present, no electrolyte imbalance or severe metabolic acidosis to warrant acute renal replacement therapy at present. However if renal function does not improve further needs preparation for future renal replacement therapy, incl, vein mapping/vascular surgery eval for AVF vs PD cath. obtain renal US. (5) Chronic kidney disease, stage V Current Visit: Yes Status: Acute Plan to address problem: suspect hypertensive nephrosclerosis, and diabetic nephropathy as cause of CKD. Urine protein/cr ratio of >2g/g noted. obtain renal US to assess kidney size, echogenicity and to rule out other structural abnormalities.
[2017-01-06] MEDS: ZITHROMAX 500 MG in NACL 0.9% 250ML 250 ML IV SCH (10:15)
[2017-01-06] MEDS: IMDUR PO SCH (10:57)
[2017-01-06] MEDS: COREG PO SCH ×2 (10:57→21:40)
[2017-01-06] MEDS: LOVENOX SUB-Q SCH (11:02)
--- NOTE | 2017-01-06 11:27 | Progress Note ---
Assessment and Plan Assessment and plan: Patient is a 53 years old Afriacn [place] male with past medical history congestive heart failure and hypertension, who, present to the Emergency Department difficulty of breathing. Patient developed difficulty of breathing yesterday and he has had progressive worsening of shortness of breath. Patient reports that he relocated from [facility] a year AGO AND RAN OF HIS MEDS A FEW WEEKS AGO. Acute respiratory failure with hypoxia Secondary to congestive heart failure. Resolved Patient oxygen saturation improved with 2LNC; now weaned off oxygen Continue with Nebulizers/Inhalers Oxygen supplement Supportive care Acute on chronic congestive heart failure Presumed diastolic Echo EF 45-50%, moderate to severe LVH, abnormal diastolic function. Continue lasix, beta blockers continue to hold SCARLET/ARB due to renal function. Record requested not available yet Strict I&O's and daily weights Low-sodium/cardiac diet/fluid restriction Closely monitor electrolytes Cardiology evaluation Type 2 DM ?new diagnosis A1c OF 8 Counselling provided Insulin Sliding scale Hypertensive urgency Patient noncompliance with antihypertensive medication Started on hydralazine and isosorbide Improved. IV hydralazine for SBP>160 Closely monitor blood pressure Acute kidney injury on CKD stage 3 secondary to vasomotor nephropathy Avoid nephrotoxicity, Renal ultrasound Repeat BMP Nephrology consult noted. May need dialysis if no improvement Pulmonary infiltrate. Doubt Pneumonia Chest xray revealed right perihilar and lower lobe infiltrates Given empiric IV Rocephin and azithromycin on admission will discontinue since patient has no fever Repeat chest xray in Am to re-evaluate Supportive care Elevated D-dimer VQ scan no evidence of PE VL LE doppler ordered Dyslipidemia Continue statin Type 2 ID secondary to renal failure Cardiology consulted DVT prophylaxis Heparin History Interval history: Patient seen and examined in no acute distress. Denies any chest pain, nausea. Patient reports he is feeling better compared to yesterday Hospitalist Physical - Constitutional Vitals: Temp Pulse Resp BP Pulse Ox 99.7 F H 98 H 20 151/84 97 01/06/17 04:37 01/06/17 10:57 01/06/17 09:19 01/06/17 10:57 01/06/17 09:19 General appearance: Present: no acute distress - EENT Eyes: Present: PERRL, EOM intact ENT: hearing intact, clear oral mucosa - Neck Neck: Present: supple, normal ROM - Respiratory Respiratory effort: normal Respiratory: bilateral: CTA - Cardiovascular Rhythm: regular Heart Sounds: Present: S1 & S2. Absent: systolic murmur, diastolic murmur - Extremities Extremities: no ischemia, pulses intact, pulses symmetrical, normal temperature , normal color Extremity abnormal: edema (trace) Peripheral Pulses: within normal limits - Abdominal General gastrointestinal: soft, non-tender, non-distended, normal bowel sounds - Integumentary Integumentary: Present: clear, warm - Psychiatric Psychiatric: appropriate mood/affect, intact judgment & insight, memory intact, cooperative - Neurologic Neurologic: CNII-XII intact, moves all extremities - Allied Health Allied health notes reviewed: nursing Results - Labs CBC & Chem 7: 01/06/17 05:47 01/06/17 05:47 Labs: Laboratory Last Values WBC 8.8 K/mm3 (4.5-11.0) 01/06/17 05:47 RBC 3.44 M/mm3 (3.65-5.03) L 01/06/17 05:47 Hgb 10.4 gm/dl (11.8-15.2) L 01/06/17 05:47 Hct 30.3 % (35.5-45.6) L 01/06/17 05:47 MCV 88 fl (84-94) 01/06/17 05:47 MCH 30 pg (28-32) 01/06/17 05:47 MCHC 34 % (32-34) 01/06/17 05:47 RDW 14.4 % (13.2-15.2) 01/06/17 05:47 Plt Count 212 K/mm3 (140-440) 01/06/17 05:47 Lymph % (Auto) 11.7 % (13.4-35.0) L 01/06/17 05:47 [place] % (Auto) 9.1 % (0.0-7.3) H 01/06/17 05:47 Eos % (Auto) 0.7 % (0.0-4.3) 01/06/17 05:47 Baso % (Auto) 0.2 % (0.0-1.8) 01/06/17 05:47 Lymph # 1.0 K/mm3 (1.2-5.4) L 01/06/17 05:47 [place] # 0.8 K/mm3 (0.0-0.8) 01/06/17 05:47 Eos # 0.1 K/mm3 (0.0-0.4) 01/06/17 05:47 Baso # 0.0 K/mm3 (0.0-0.1) 01/06/17 05:47 Seg Neutrophils % 78.3 % (40.0-70.0) H 01/06/17 05:47 Seg Neutrophils # 6.9 K/mm3 (1.8-7.7) 01/06/17 05:47 D-Dimer 6567.37 ng/mlDDU (0-234) H 01/05/17 02:35 Sodium 141 mmol/L (137-145) 01/06/17 05:47 Potassium 3.8 mmol/L (3.6-5.0) 01/06/17 05:47 Chloride 100.2 mmol/L (98-107) 01/06/17 05:47 Carbon Dioxide 24 mmol/L (22-30) 01/06/17 05:47 Anion Gap 21 mmol/L 01/06/17 05:47 BUN 46 mg/dL (9-20) H 01/06/17 05:47 Creatinine 5.7 mg/dL (0.8-1.5) H 01/06/17 05:47 Estimated GFR 11 ml/min 01/06/17 05:47 BUN/Creatinine Ratio 8 % 01/06/17 05:47 Glucose 129 mg/dL (75-100) H 01/06/17 05:47 POC Glucose 190 (70-105) H 01/05/17 20:33 Hemoglobin A1c 8.0 % (4-6) H 01/06/17 06:00 Calcium 8.4 mg/dL (8.4-10.2) 01/06/17 05:47 Troponin T 0.090 ng/mL (0.00-0.029) H 01/05/17 20:09 NT-Pro-B Natriuret Pep 4126 pg/mL (0-450) H 01/05/17 02:35 Triglycerides 120 mg/dL (2-149) 01/04/17 23:30 Cholesterol 196 mg/dL (50-199) 01/04/17 23:30 LDL Cholesterol Direct 112 mg/dL (50-130) 01/04/17 23:30 HDL Cholesterol 60 mg/dL (40-59) H 01/04/17 23:30 Cholesterol/HDL Ratio 3.26 % 01/04/17 23:30 Urine Eosinophils None seen (None Seen) 01/05/17 20:53 Urine Creatinine 112.9 mg/dL (0.1-20.0) H 01/05/17 20:53 Urine Sodium 54 mmol/L 01/05/17 20:53 Urine Total Protein 248 mg/dL (5-11.8) H 01/05/17 20:53
--- NOTE | 2017-01-06 12:02 | Progress Note ---
Assessment and Plan Assessment: Acute diastolic heart failure - pulm edema on admission CXR Moderate to severe LVH Uncontrolled HTN - improving DM - HgbA1c is 8 AMY on CKD Elevated DDimer - V/Q scan with low probability for PE Dyslipidemia Plan: Echo reviewed - EF 45-50%, moderate to severe LVH, abnormal diastolic function. Cont coreg, imdur, hydralazine. No ACEI/ARB given renal insufficiency. Nephrology following. Assessment and plan reviewed with pt at bedside. The patient has been seen in conjunction with Dr. KARYN Sanchez who agrees with the assessment and plan of care. Subjective Date of service: 01/06/17 Principal diagnosis: HF Interval history: Pt resting comfortably in bed, states he is feeling better. SOB improving. BPs improved. s/p renal US this AM. Objective Last Vital Signs Temp 99.7 F H 01/06/17 04:37 Pulse 98 H 01/06/17 10:57 Resp 20 01/06/17 09:19 BP 151/84 01/06/17 10:57 Pulse Ox 97 01/06/17 09:19 - Physical Examination General: Appears Well, No Apparent Distress HEENT: Positive: PERRL, Normocephaly, Mucus Membranes Moist Neck: Positive: neck supple Cardiac: Positive: Reg Rate and Rhythm, S1/S2 Lungs: Positive: clear to auscultation Neuro: Positive: Grossly Intact, Cranial Nerve 2-12 Intact Abdomen: Positive: Unremarkable, Soft, Active Bowel Sounds. Negative: Tender Skin: Positive: Clear. Negative: Rash Musculoskeletal: No Pain, Normal Range of Motion Extremities: Absent: edema - Labs and Meds CBC 01/06/17 Range/Units 05:47 WBC 8.8 (4.5-11.0) K/mm3 RBC 3.44 L (3.65-5.03) M/mm3 Hgb 10.4 L (11.8-15.2) gm/dl Hct 30.3 L (35.5-45.6) % Plt Count 212 (140-440) K/mm3 Lymph # 1.0 L (1.2-5.4) K/mm3 [place] # 0.8 (0.0-0.8) K/mm3 Eos # 0.1 (0.0-0.4) K/mm3 Baso # 0.0 (0.0-0.1) K/mm3 Comprehensive Metabolic Panel 01/06/17 Range/Units 05:47 Sodium 141 (137-145) mmol/L Potassium 3.8 (3.6-5.0) mmol/L Chloride 100.2 (98-107) mmol/L Carbon Dioxide 24 (22-30) mmol/L BUN 46 H (9-20) mg/dL Creatinine 5.7 H (0.8-1.5) mg/dL Glucose 129 H (75-100) mg/dL Calcium 8.4 (8.4-10.2) mg/dL - Imaging and Cardiology EKG: report reviewed, image reviewed Echo: report reviewed - Telemetry EKG Rhythm: Sinus Rhythm - EKG Sinus rhythms and dysrhythmias: sinus rhythm Chamber hypertrophy or enlargement: left ventricular hypertro Repolarization changes or abnormalities: repolarization abn secondary to ventricular hypertrophy
[2017-01-06] MEDS ORDERED: D50W (25GM) Syringe IV PRN (15:47)
[2017-01-06] MEDS ORDERED: D50W (25GM) Vial IV PRN (15:56)
[2017-01-06] MEDS: LASIX PO SCH (17:42)
[2017-01-06] MEDS: NOVOLOG SUB-Q SCH ×2 (17:47→21:43)
[2017-01-06] MEDS: APRESOLINE IV PRN (17:48)
[2017-01-06 19:41] LABS: Bilirubin,Urine NEG (Negative); Blood,Urine NEG (Negative); Ketones,Urine NEG (Negative); Leukocyte Esterase,Urine NEG (Negative); Mucus,Urine FEW /HPF; Nitrite,Urine NEG (Negative); Urobilinogen,Urine < 2.0 mg/dL (<2.0)
[2017-01-06 19:44] LABS: Protein,Urine >500 mg/dL (Negative)
[2017-01-07] MEDS: APRESOLINE PO SCH ×3 (06:15→23:15)
[2017-01-07] MEDS: LASIX PO SCH ×2 (06:17→17:51)
[2017-01-07 06:18] LABS: Hematocrit 31.9 % (35.5-45.6); Hemoglobin 10.7 gm/dl (11.8-15.2); Mean Corpuscular HGB Conc 34 % (32-34); Mean Corpuscular Hemoglobin 30 pg (28-32); Mean Corpuscular Volume 89 fl (84-94); Platelet Count 222 K/mm3 (140-440); Red Blood Count 3.59 M/mm3 (3.65-5.03); Red Cell Distribution Width 14.4 % (13.2-15.2); White Blood Count 10.5 K/mm3 (4.5-11.0)
[2017-01-07 06:36] LABS: Calcium 8.6 mg/dL (8.4-10.2); Potassium 3.7 mmol/L (3.6-5.0)
--- NOTE | 2017-01-07 07:14 | Vascular Lab Report ---
LOWER EXTREMITY VENOUS DUPLEX: REASON FOR EXAM: Elevated d-dimer. COMMENTS ON THE RIGHT: All veins visualized are freely compressible without evidence of internal echogenicity. Flow is spontaneous and phasic throughout. COMMENTS ON THE LEFT: All veins visualized are freely compressible without evidence of internal echogenicity. Flow is spontaneous and phasic throughout. IMPRESSION: No evidence of acute or chronic deep venous thrombosis in either lower extremity.
[2017-01-07] MEDS: NOVOLOG SUB-Q SCH ×4 (08:13→23:16)
[2017-01-07] MEDS ORDERED: COREG PO SCH (08:31)
--- NOTE | 2017-01-07 08:56 | Progress Note ---
Assessment and Plan Assessment and plan: --Hypertensive urgency at the time of admission Moderate control, continue current antihypertensive, optimize medications Constant and patient strongly advised to comply with medications diet and follow -up visits Verbalized understanding --Acute on chronic kidney disease stage III Due to vasomotor nephropathy, nephrology following Worsening renal function, possible hemodialysis --Acute on chronic congestive heart failure systolic dysfunction Ejection fraction 45-50%, Continue anti-failure medications Input output monitoring, Cardiology following --Acute hypoxic respiratory failure, secondary to acute exacerbation of systolic CHF As well as fluid overload secondary to renal failure Continue current management --Type 2 diabetes mellitus Accu-Chek sliding scale, ADA diet and insulin as needed, hemoglobin A1c 8 Diabetic education if needed --Right-sided pneumonia probably , community-acquired continue current antibiotics and supportive care follow cultures --Elevated d-dimer's; negative PE and negative DVT --Dyslipidemia; stable on lipid-lowering medication --DVT prophylaxis heparin renal dose closely monitor the patient and adjust management as needed Consults and recommendations noted and appreciated Plan of care discussed with the patient and his nurse Patient had many questions regarding his dialysis and his treatment, answered all of them History Interval history: Patient seen and examined this morning Medical record reviewed Blood pressures are uncontrolled, worsening renal function Nephrology planning hemodialysis Patient feels better no new complaints. Vital signs reviewed Hospitalist Physical - Constitutional Vitals: Temp Pulse Resp BP Pulse Ox 98.3 F 98 H 18 171/93 100 01/07/17 08:01 01/07/17 08:01 01/07/17 08:01 01/07/17 08:01 01/07/17 08:01 General appearance: Present: no acute distress, well-nourished, obese - EENT Eyes: Present: PERRL, EOM intact - Neck Neck: Present: supple, normal ROM - Respiratory Respiratory effort: normal Respiratory: bilateral: diminished, negative: rales, rhonchi, wheezing - Cardiovascular Rhythm: regular Heart Sounds: Present: S1 & S2 - Extremities Extremities: no ischemia, No edema - Abdominal General gastrointestinal: soft, non-tender, non-distended - Integumentary Integumentary: Present: clear, warm - Psychiatric Psychiatric: appropriate mood/affect, cooperative - Neurologic Neurologic: CNII-XII intact, moves all extremities Results - Labs CBC & Chem 7: 01/07/17 06:00 01/07/17 06:00 Labs: Laboratory Last Values WBC 10.5 K/mm3 (4.5-11.0) 01/07/17 06:00 RBC 3.59 M/mm3 (3.65-5.03) L 01/07/17 06:00 Hgb 10.7 gm/dl (11.8-15.2) L 01/07/17 06:00 Hct 31.9 % (35.5-45.6) L 01/07/17 06:00 MCV 89 fl (84-94) 01/07/17 06:00 MCH 30 pg (28-32) 01/07/17 06:00 MCHC 34 % (32-34) 01/07/17 06:00 RDW 14.4 % (13.2-15.2) 01/07/17 06:00 Plt Count 222 K/mm3 (140-440) 01/07/17 06:00 Lymph % (Auto) 11.7 % (13.4-35.0) L 01/06/17 05:47 [place] % (Auto) 9.1 % (0.0-7.3) H 01/06/17 05:47 Eos % (Auto) 0.7 % (0.0-4.3) 01/06/17 05:47 Baso % (Auto) 0.2 % (0.0-1.8) 01/06/17 05:47 Lymph # 1.0 K/mm3 (1.2-5.4) L 01/06/17 05:47 [place] # 0.8 K/mm3 (0.0-0.8) 01/06/17 05:47 Eos # 0.1 K/mm3 (0.0-0.4) 01/06/17 05:47 Baso # 0.0 K/mm3 (0.0-0.1) 01/06/17 05:47 Seg Neutrophils % 78.3 % (40.0-70.0) H 01/06/17 05:47 Seg Neutrophils # 6.9 K/mm3 (1.8-7.7) 01/06/17 05:47 D-Dimer 6567.37 ng/mlDDU (0-234) H 01/05/17 02:35 Sodium 140 mmol/L (137-145) 01/07/17 06:00 Potassium 3.7 mmol/L (3.6-5.0) 01/07/17 06:00 Chloride 100.0 mmol/L (98-107) 01/07/17 06:00 Carbon Dioxide 24 mmol/L (22-30) 01/07/17 06:00 Anion Gap 20 mmol/L 01/07/17 06:00 BUN 50 mg/dL (9-20) H 01/07/17 06:00 Creatinine 6.2 mg/dL (0.8-1.5) H 01/07/17 06:00 Estimated GFR 10 ml/min 01/07/17 06:00 BUN/Creatinine Ratio 8 % 01/07/17 06:00 Glucose 139 mg/dL (75-100) H 01/07/17 06:00 POC Glucose 109 (70-105) H 01/06/17 21:41 Hemoglobin A1c 8.0 % (4-6) H 01/06/17 06:00 Calcium 8.6 mg/dL (8.4-10.2) 01/07/17 06:00 Troponin T 0.090 ng/mL (0.00-0.029) H 01/05/17 20:09 NT-Pro-B Natriuret Pep 4126 pg/mL (0-450) H 01/05/17 02:35 Triglycerides 120 mg/dL (2-149) 01/04/17 23:30 Cholesterol 196 mg/dL (50-199) 01/04/17 23:30 LDL Cholesterol Direct 112 mg/dL (50-130) 01/04/17 23:30 HDL Cholesterol 60 mg/dL (40-59) H 01/04/17 23:30 Cholesterol/HDL Ratio 3.26 % 01/04/17 23:30 Urine Color Yellow (Yellow) 01/06/17 19:20 Urine Turbidity Clear (Clear) 01/06/17 19:20 Urine pH 7.0 (5.0-7.0) 01/06/17 19:20 Ur Specific [place] 1.012 (1.003-1.030) 01/06/17 19:20 Urine Protein >500 mg/dL (Negative) 01/06/17 19:20 Urine Glucose (UA) 50 mg/dL (Negative) 01/06/17 19:20 Urine Ketones Neg mg/dL (Negative) 01/06/17 19:20 Urine Blood Neg (Negative) 01/06/17 19:20 Urine Nitrite Neg (Negative) 01/06/17 19:20 Urine Bilirubin Neg (Negative) 01/06/17 19:20 Urine Urobilinogen < 2.0 mg/dL (<2.0) 01/06/17 19:20 Ur Leukocyte Esterase Neg (Negative) 01/06/17 19:20 Urine WBC (Auto) 1.0 /HPF (0.0-6.0) 01/06/17 19:20 Urine RBC (Auto) 1.0 /HPF (0.0-6.0) 01/06/17 19:20 U Epithel Cells (Auto) < 1.0 /HPF (0-13.0) 01/06/17 19:20 Urine Mucus Few /HPF 01/06/17 19:20 Urine Eosinophils None seen (None Seen) 01/05/17 20:53 Urine Creatinine 112.9 mg/dL (0.1-20.0) H 01/05/17 20:53 Urine Sodium 54 mmol/L 01/05/17 20:53 Urine Total Protein 248 mg/dL (5-11.8) H 01/05/17 20:53
[2017-01-07] MEDS: IMDUR PO SCH (09:07)
[2017-01-07] MEDS: COREG PO SCH ×2 (09:07→23:14)
[2017-01-07] MEDS: ZITHROMAX 500 MG in NACL 0.9% 250ML 250 ML IV SCH (09:08)
[2017-01-07] MEDS: LOVENOX SUB-Q SCH (09:09)
--- NOTE | 2017-01-07 12:12 | Progress Note ---
Assessment and Plan Assessment: Acute diastolic heart failure - pulm edema on admission CXR Moderate to severe LVH Uncontrolled HTN - improving DM - HgbA1c is 8 AMY on CKD Elevated DDimer - V/Q scan with low probability for PE Dyslipidemia Plan: Increase coreg and hydralazine. Cont imdur. No ACEI/ARB given renal insufficiency. Nephrology following and considering [employer]. Assessment and plan reviewed with pt at bedside. The patient has been seen in conjunction with Dr. KARYN Sacnhez who agrees with the assessment and plan of care. Subjective Date of service: 01/07/17 Principal diagnosis: HF Interval history: Pt resting comfortably in bed, states he is feeling better. SOB improving. Objective Last Vital Signs Temp 98.3 F 01/07/17 08:01 Pulse 80 01/07/17 10:00 Resp 20 01/07/17 10:00 BP 171/93 01/07/17 08:01 Pulse Ox 97 01/07/17 10:00 - Physical Examination General: Appears Well, No Apparent Distress HEENT: Positive: PERRL, Normocephaly, Mucus Membranes Moist Neck: Positive: neck supple Cardiac: Positive: Reg Rate and Rhythm, S1/S2 Lungs: Positive: clear to auscultation Neuro: Positive: Grossly Intact, Cranial Nerve 2-12 Intact Abdomen: Positive: Unremarkable, Soft, Active Bowel Sounds. Negative: Tender Skin: Positive: Clear. Negative: Rash Musculoskeletal: No Pain, Normal Range of Motion Extremities: Absent: edema - Labs and Meds CBC 01/07/17 Range/Units 06:00 WBC 10.5 (4.5-11.0) K/mm3 RBC 3.59 L (3.65-5.03) M/mm3 Hgb 10.7 L (11.8-15.2) gm/dl Hct 31.9 L (35.5-45.6) % Plt Count 222 (140-440) K/mm3 Comprehensive Metabolic Panel 01/07/17 Range/Units 06:00 Sodium 140 (137-145) mmol/L Potassium 3.7 (3.6-5.0) mmol/L Chloride 100.0 (98-107) mmol/L Carbon Dioxide 24 (22-30) mmol/L BUN 50 H (9-20) mg/dL Creatinine 6.2 H (0.8-1.5) mg/dL Glucose 139 H (75-100) mg/dL Calcium 8.6 (8.4-10.2) mg/dL - Imaging and Cardiology EKG: report reviewed, image reviewed Echo: report reviewed - EKG Sinus rhythms and dysrhythmias: sinus rhythm Chamber hypertrophy or enlargement: left ventricular hypertro Repolarization changes or abnormalities: repolarization abn secondary to ventricular hypertrophy
[2017-01-07] MEDS ORDERED: NACL 0.9% 100 ML ONE (13:28)
[2017-01-07] MEDS ORDERED: HEPARIN/NS 5000 UNIT/500ML(CATH LAB) 500 ML IR ONE (13:28)
[2017-01-07] MEDS ORDERED: ANCEF/STERILE WATER 2 GM/20 ML 2 GM/20 ML SYRINGE IV ONE (13:29)
[2017-01-07] MEDS ORDERED: XYLOCAINE 2% INFILTRATI ONE (13:29)
[2017-01-07] MEDS ORDERED: SUBLIMAZE ONE (13:29)
[2017-01-07] MEDS ORDERED: ZOFRAN ONE (13:38)
[2017-01-07] MEDS: HEPARIN 10,000 UNITS/10 ML ONE ×2 (13:47→13:48)
[2017-01-07] MEDS ORDERED: NACL 0.9% 100 ML IV PRN (13:54)
--- NOTE | 2017-01-07 13:56 | Operative Report ---
Operative Report Operative Report: EXAM: ULTRASOUND AND FLUOROSCOPIC GUIDED PLACEMENT OF TUNNELED HEMODIALYSIS CATHETER CLINICAL INDICATION: END-STAGE RENAL DISEASE REQUIRING DIALYSIS ACCESS DATE: 01/07/2017 PROCEDURE: Following an expiration of the risks, benefits and alternatives; written informed consent was obtained. The patient was brought the angiographic suite and placed in supine position on the examination table. Initial ultrasound evaluation of the right neck demonstrated a patent right internal jugular vein. The patient's right neck and chest wall were prepped and draped in the usual sterile fashion. 1% lidocaine was used for anesthesia. Under ultrasound guidance, the right internal jugular vein was cannulated with a 7 cm 18-gauge needle. A 0.035 guidewire was advanced into the IVC under fluoroscopy to document intravenous positioning. The needle was removed. An appropriate catheter exit site was chosen along the lateral right chest wall. 1% lidocaine was used for anesthesia at the catheter exit site and along the tunnel tract. A Bard 23 cm glidepath tunneled hemodialysis catheter was then tunneled antegrade from the catheter exit site to the venotomy site. Following serial dilation over the guidewire under fluoroscopy, a 16 [place] peel -away sheath was placed over the guidewire under fluoroscopy. The trocar and guidewire were removed and the catheter inserted through the peel-away sheath. The peel-away sheath was then removed. The catheter tip was positioned in the proximal right atrium. Both ports flushed and aspirated easily and were then locked with appropriate volumes of heparin. The venotomy was closed using 3-0 Vicryl suture. 3-0 Vicryl suture was also applied to the catheter exit site. Dermabond and sterile dressings were then applied. The patient tolerated the procedure well however there was one episode of emesis following the administration of fentanyl. There were no immediate post procedure complications. Conscious sedation was not performed secondary to patient's nothing by mouth status. The patient received fentanyl alone. Continuous cardiopulmonary monitoring was utilized. IMPRESSION: 1) Ultrasound and fluoroscopic guided placement of 23 cm Glidepath tunneled hemodialysis catheter via the right internal jugular vein.
--- NOTE | 2017-01-07 15:48 | Progress Note ---
Assessment and Plan - Patient Problems (1) Hypertensive emergency Current Visit: Yes Status: Acute Plan to address problem: improved on current BP meds, incl,. amlodipine, hydralazine, ISMN, carvedilol. Will monitor on current meds. If BP remains elevated will add SCARLET-I since pt is started on HD. Will target UF 1-2L as tolerated for further volume/BP control (2) Acute CHF Current Visit: Yes Status: Acute Qualifiers: Congestive heart failure type: unspecified congestive heart failure type Qualified Code(s): I50.9 - Heart failure, unspecified Plan to address problem: cont BB can start SCARLET-I. Volume control with HD (3) Type 2 diabetes mellitus with diabetic chronic kidney disease Current Visit: Yes Status: Chronic Qualifiers: Diabetes mellitus locksmith helper insulin use: with locksmith helper use Chronic kidney disease stage: stage 5, not on chronic dialysis Qualified Code(s): E11.22 - Type 2 diabetes mellitus with diabetic chronic kidney disease; N18.5 - Chronic kidney disease, stage 5; N18.5 - Chronic kidney disease, stage 5; N18.5 - Chronic kidney disease, stage 5; N18.5 - Chronic kidney disease, stage 5; Z79.4 - USP (current) use of insulin; Z79.4 - computer engineering technologist (current) use of insulin ; Z79.4 - computer engineering technologist (current) use of insulin; Z79.4 - computer engineering technologist (current) use of insulin Plan to address problem: glucose control as per primary attending. A1C 8 (4) Acute kidney injury Current Visit: Yes Status: Acute Plan to address problem: suspect acute kidney injury due to malignant hypertension, superimposed on chronic hypertensive nephropathy. Renal US shows b/l echogenicity consistent with CKD.Check HARRISON, ANCA, Anti-GBM, C3/4, hepatitis panel. Initiated on HD for volume control and solute clearance given worsening renal function and pt remains oliguric on IV lasix. (5) Chronic kidney disease, stage V Current Visit: Yes Status: Acute Plan to address problem: suspect hypertensive nephrosclerosis, and diabetic nephropathy as cause of CKD, renal US shows increased echogenicity b/l. Urine protein/cr ratio of >2g/g noted. Initiated on HD, s/p permcath, anticipating prolonged HD. Discussed different modalities of HD/PD/transplantation. Pt is interested in PD. Will consult surgery for possible PD cath evaluation. (6) Anemia in chronic illness Current Visit: Yes Status: Acute Plan to address problem: check iron store, ferritin level. if replete and Hb remains <10 consider starting ALICIA Subjective Date of service: 01/07/17 Principal diagnosis: HF Interval history: Pt seen and examined during HD, tolerating treatment well. denies fever, chills , nausea, vomiting, chest pain, SOB, palpitations, dysuria. Objective - Vital Signs Vital signs: Vital Signs - 12hr 01/07/17 01/07/17 01/07/17 05:33 06:15 08:01 Temperature 98.2 F 98.3 F Pulse Rate 99 H 98 H Pulse Rate [ Apical] Respiratory 18 18 Rate Blood Pressure 178/101 171/93 Blood Pressure 178/101 [Left] O2 Sat by Pulse 100 100 Oximetry 01/07/17 01/07/17 10:00 14:15 Temperature 99.1 F Pulse Rate 80 87 Pulse Rate [ 80 Apical] Respiratory 20 18 Rate Blood Pressure 154/99 Blood Pressure [Left] O2 Sat by Pulse 97 Oximetry - General Appearance General appearance: well-nourished, appears stated age EENT: ATNC, PERRL, mucous membranes moist Neck: no JVD Respiratory: Present: Decreased Breath Sounds Cardiology: regular, S1S2 Gastrointestinal: normoactive bowel sounds Integumentary: no rash, other (no edema ) Neurologic: no focal deficit, alert and oriented x3, strength 5/5, CN 3-12 intact Psychiatric: mood/affect appropriate, cooperative - Lab 01/07/17 06:00 01/07/17 06:00 Most recent lab results Calcium 8.6 mg/dL (8.4-10.2) 01/07/17 06:00 Urine Creatinine 112.9 mg/dL (0.1-20.0) H 01/05/17 20:53 Urine Sodium 54 mmol/L 01/05/17 20:53 Urine Total Protein 248 mg/dL (5-11.8) H 01/05/17 20:53
[2017-01-07] MEDS ORDERED: NACL 0.9 (PRIMING MACHINE ONLY DIALYSIS) MC ONE (16:24)
[2017-01-07] MEDS: HEPARIN IV PRN (16:35)
[2017-01-08 04:59] LABS: Basophils % (Auto) 0.3 % (0.0-1.8); Eosinophils % (Auto) 0.3 % (0.0-4.3); Hematocrit 31.7 % (35.5-45.6); Hemoglobin 10.9 gm/dl (11.8-15.2); Mean Corpuscular HGB Conc 34 % (32-34); Mean Corpuscular Hemoglobin 30 pg (28-32); Mean Corpuscular Volume 88 fl (84-94); Platelet Count 226 K/mm3 (140-440); Red Blood Count 3.59 M/mm3 (3.65-5.03); Red Cell Distribution Width 13.9 % (13.2-15.2); White Blood Count 10.1 K/mm3 (4.5-11.0)
[2017-01-08 05:08] LABS: Calcium 8.5 mg/dL (8.4-10.2); Chloride 96.3 mmol/L (98-107); Potassium 4.1 mmol/L (3.6-5.0)
[2017-01-08] MEDS: LASIX PO SCH ×2 (05:55→22:31)
[2017-01-08] MEDS: APRESOLINE PO SCH ×3 (05:56→22:24)
[2017-01-08] MEDS: LOVENOX SUB-Q SCH (10:12)
[2017-01-08] MEDS: NOVOLOG SUB-Q SCH ×4 (10:13→22:24)
[2017-01-08] MEDS: COREG PO SCH ×2 (10:14→22:24)
[2017-01-08] MEDS: ZITHROMAX PO SCH (10:14)
[2017-01-08] MEDS: ZESTRIL PO SCH (10:15)
[2017-01-08] MEDS: IMDUR PO SCH (10:15)
--- NOTE | 2017-01-08 10:31 | Progress Note ---
Assessment and Plan 51yo WM: Assessment: Acute diastolic heart failure - pulm edema on admission CXR Moderate to severe LVH Uncontrolled HTN - improving DM - HgbA1c is 8 AMY on CKD - hd Elevated DDimer - V/Q scan with low probability for PE Dyslipidemia Plan: Increase coreg and hydralazine. Cont imdur. No ACEI/ARB given renal insufficiency. Assessment and plan reviewed with pt at bedside. Subjective Date of service: 01/08/17 Principal diagnosis: HF Interval history: feels better this am, less sob Objective Vital Signs Temp Pulse Resp BP BP Pulse Ox 01/08/17 08:35 98.9 F 86 18 141/73 94 01/08/17 05:56 90 127/57 01/08/17 04:42 97.9 F 90 18 127/57 98 01/07/17 23:44 98.3 F 95 H 18 145/67 99 01/07/17 23:15 86 147/73 01/07/17 23:14 86 147/73 01/07/17 21:00 85 01/07/17 19:50 98.2 F 86 18 147/73 97 01/07/17 16:45 98.9 F 80 18 201/111 01/07/17 16:30 79 180/102 01/07/17 16:15 85 186/102 01/07/17 16:00 78 176/99 01/07/17 15:45 81 181/106 01/07/17 15:30 80 166/95 01/07/17 15:15 79 158/89 01/07/17 15:00 81 166/96 01/07/17 14:45 81 159/87 01/07/17 14:30 80 164/88 01/07/17 14:15 99.1 F 87 18 154/99 - Physical Examination General: Appears Well, No Apparent Distress HEENT: Positive: PERRL, Normocephaly, Mucus Membranes Moist Neck: Positive: neck supple Neuro: Positive: Grossly Intact, Cranial Nerve 2-12 Intact Abdomen: Positive: Unremarkable, Soft, Active Bowel Sounds. Negative: Tender Skin: Positive: Clear. Negative: Rash Musculoskeletal: No Pain, Normal Range of Motion Extremities: Absent: edema - Labs and Meds CBC 01/08/17 Range/Units 04:14 WBC 10.1 (4.5-11.0) K/mm3 RBC 3.59 L (3.65-5.03) M/mm3 Hgb 10.9 L (11.8-15.2) gm/dl Hct 31.7 L (35.5-45.6) % Plt Count 226 (140-440) K/mm3 Lymph # 1.0 L (1.2-5.4) K/mm3 Orange # 1.2 H (0.0-0.8) K/mm3 Eos # 0.0 (0.0-0.4) K/mm3 Baso # 0.0 (0.0-0.1) K/mm3 Comprehensive Metabolic Panel 01/08/17 Range/Units 04:14 Sodium 136 L (137-145) mmol/L Potassium 4.1 (3.6-5.0) mmol/L Chloride 96.3 L (98-107) mmol/L Carbon Dioxide 26 (22-30) mmol/L BUN 37 H (9-20) mg/dL Creatinine 5.7 H (0.8-1.5) mg/dL Glucose 164 H (75-100) mg/dL Calcium 8.5 (8.4-10.2) mg/dL - Imaging and Cardiology EKG: report reviewed, image reviewed Echo: report reviewed - EKG Sinus rhythms and dysrhythmias: sinus rhythm Chamber hypertrophy or enlargement: left ventricular hypertro Repolarization changes or abnormalities: repolarization abn secondary to ventricular hypertrophy
[2017-01-08] MEDS ORDERED: ZOFRAN IV PRN (15:17)
--- NOTE | 2017-01-08 16:00 | Progress Note ---
Assessment and Plan - Patient Problems (1) Chronic kidney disease, stage V Current Visit: Yes Status: Acute Plan to address problem: Chronic kidney disease secondary to hypertensive nephrosclerosis. Unclear if patient has acute on chronic kidney disease versus chronic kidney disease which has progressed to end-stage renal disease. Kidney indices improved with dialysis. (2) Anemia in chronic kidney disease Current Visit: Yes Status: Acute Qualifiers: Chronic kidney disease stage: C Plan to address problem: Follow-up hemoglobin (3) Acute heart failure Current Visit: Yes Status: Acute Qualifiers: Heart failure type: H Plan to address problem: Inadequate response to diuretics. Improved volume status with dialysis (4) Hypertensive emergency Current Visit: Yes Status: Acute Plan to address problem: Blood pressure controlled on current medications. Continue management (5) Type 2 diabetes mellitus with diabetic chronic kidney disease Current Visit: Yes Status: Chronic Qualifiers: Diabetes mellitus terminal operator insulin use: with terminal operator use Chronic kidney disease stage: stage 5, not on chronic dialysis Qualified Code(s): E11.22 - Type 2 diabetes mellitus with diabetic chronic kidney disease; N18.5 - Chronic kidney disease, stage 5; N18.5 - Chronic kidney disease, stage 5; N18.5 - Chronic kidney disease, stage 5; N18.5 - Chronic kidney disease, stage 5; Z79.4 - MCC (current) use of insulin; Z79.4 - continuous churn buttermaker (current) use of insulin ; Z79.4 - continuous churn buttermaker (current) use of insulin; Z79.4 - continuous churn buttermaker (current) use of insulin Plan to address problem: Blood sugar management by primary attending Subjective Date of service: 01/08/17 Principal diagnosis: HF Interval history: Patient seen lying in bed. He has no complaints. Denies any chest pain, shortness of breath or palpitations. No swelling. No nausea or vomiting. Objective - Exam Narrative Exam: Middle aged -French male lying in bed in no acute distress HEENT: NCAT, pink oral mucous membrane Neck: Supple, no venous distention CVS: S1S2 RRR with no murmur, rub or gallop Chest: Clear to auscultation Abdomen: Protuberant, soft, nontender, no organomegaly, bowel sounds are present Extremities: No edema Neuro: Awake, alert no focal deficits - Vital Signs Vital signs: Vital Signs - 12hr 01/08/17 01/08/17 01/08/17 04:42 05:56 08:35 Temperature 97.9 F 98.9 F Pulse Rate 90 90 86 Respiratory 18 18 Rate Blood Pressure 127/57 127/57 Blood Pressure 141/73 [Left] O2 Sat by Pulse 98 94 Oximetry - Lab 01/08/17 04:14 01/08/17 04:14 Most recent lab results Calcium 8.5 mg/dL (8.4-10.2) 01/08/17 04:14 Phosphorus 4.80 mg/dL (2.5-4.5) H 01/08/17 04:14 Urine Creatinine 112.9 mg/dL (0.1-20.0) H 01/05/17 20:53 Urine Sodium 54 mmol/L 01/05/17 20:53 Urine Total Protein 248 mg/dL (5-11.8) H 01/05/17 20:53
[2017-01-08] MEDS ORDERED: NACL 0.9 (PRIMING MACHINE ONLY DIALYSIS) MC ONE (18:30)
--- NOTE | 2017-01-08 20:02 | Consultation ---
History of Present Illness Consult date: 01/08/17 Reason for consult: other (Placement of PD catheter) - History of present illness History of present illness: Patient with ESRD requiring PDF catheter placement. Seen while on HD unit. No other complains at this time Past History Past Medical History: heart failure, hypertension Past Surgical History: No surgical history Social history: denies: smoking, alcohol abuse Family history: CAD, hypertension Medications and Allergies Allergies Allergy/AdvReac Type Severity Reaction Status Date / Time shellfish derived Allergy Anaphylaxis Verified 01/04/17 22:27 Home Medications Medication Instructions Recorded Confirmed Last Taken Type No Known Home Medications [No 01/05/17 01/05/17 Unknown History Reported Home Medications] Active Meds: Active Medications Acetaminophen (Tylenol) 650 mg PO Q4H PRN PRN Reason: Pain MILD(1-3)/Fever >100.5/SANTOS Last Admin: 01/06/17 17:47 Dose: 650 mg Atorvastatin Calcium (Lipitor) 40 mg PO QHS [facility] Last Admin: 01/07/17 23:14 Dose: 40 mg Azithromycin (Zithromax) 500 mg PO QDAY [facility] Last Admin: 01/08/17 10:14 Dose: 500 mg Bisacodyl (Dulcolax) 10 mg [place] QDAY PRN PRN Reason: Constipation unrelieved by MOM Carvedilol (Coreg) 25 mg PO BID [facility] Last Admin: 01/08/17 10:14 Dose: 25 mg Dextrose (D50w (25gm) Vial) 25 gm IV PRN PRN PRN Reason: HYPOGLYCEMIA Enoxaparin Sodium (Lovenox) 30 mg SUB-Q QDAY [facility] Last Admin: 01/08/17 10:12 Dose: 30 mg Furosemide (Lasix) 40 mg PO 0600,1800 [facility] Last Admin: 01/08/17 05:55 Dose: 40 mg Heparin Sodium (Porcine) (Heparin) 5,000 unit IV AMOL PRN PRN Reason: dwells heparin Last Admin: 01/07/17 16:35 Dose: 5,000 unit Hydralazine HCl (Apresoline) 10 mg IV Q4H PRN PRN Reason: SBP>160 Last Admin: 01/06/17 17:48 Dose: 10 mg Hydralazine HCl (Apresoline) 75 mg PO Q8HR [facility] Last Admin: 01/08/17 13:02 Dose: 75 mg Sodium Chloride (Nacl 0.9%) 100 mls @ 999 mls/hr IV AMOL PRN PRN Reason: Hypotension Insulin Aspart (Novolog) 0 units SUB-Q ACHS [facility] PRN Reason: Protocol Last Admin: 01/08/17 18:35 Dose: Not Given Isosorbide Mononitrate (Imdur) 60 mg PO QDAY [facility] Last Admin: 01/08/17 10:15 Dose: 60 mg Lisinopril (Zestril) 20 mg PO QDAY [facility] Last Admin: 01/08/17 10:15 Dose: 20 mg Ondansetron HCl (Zofran) 4 mg IV Q8H PRN PRN Reason: Nausea And Vomiting Review of Systems All systems: negative Exam Vital Signs Pulse Resp 98 H 24 01/04/17 22:21 01/04/17 22:21 - General physical appearance Positive: well developed, well nourished, no distress, no pain - Eyes Positive: PERRL, normal occular movement - Respiratory Positive: normal expansion, normal respiratory effort, clear to auscultation - Cardiovascular Rhythm: regular Heart Sounds: Present: S1 & S2 - Extremities Extremities: no ischemia, pulses intact Peripheral Pulses: within normal limits - Abdomen Abdomen: Present: soft, bowel sounds normal. Absent: tender, distended, rebound , guarding, rigid, wound, surgical scars Hernia: none Results - Labs 01/08/17 04:14 01/08/17 04:14 Abnormal lab results 01/07/17 01/08/17 01/08/17 Range/Units 21:07 04:14 04:14 RBC 3.59 L (3.65-5.03) M/mm3 Hgb 10.9 L (11.8-15.2) gm/dl Hct 31.7 L (35.5-45.6) % Lymph % (Auto) 9.4 L (13.4-35.0) % Walsh % (Auto) 11.7 H (0.0-7.3) % Lymph # 1.0 L (1.2-5.4) K/mm3 Walsh # 1.2 H (0.0-0.8) K/mm3 Seg Neutrophils % 78.3 H (40.0-70.0) % Seg Neutrophils # 7.9 H (1.8-7.7) K/mm3 Sodium 136 L (137-145) mmol/L Chloride 96.3 L (98-107) mmol/L BUN 37 H (9-20) mg/dL Creatinine 5.7 H (0.8-1.5) mg/dL Glucose 164 H (75-100) mg/dL POC Glucose 172 H (70-105) Phosphorus (2.5-4.5) mg/dL PTH Intact (15-65) pg/mL 01/08/17 01/08/17 01/08/17 Range/Units 04:14 04:14 07:40 RBC (3.65-5.03) M/mm3 Hgb (11.8-15.2) gm/dl Hct (35.5-45.6) % Lymph % (Auto) (13.4-35.0) % Walsh % (Auto) (0.0-7.3) % Lymph # (1.2-5.4) K/mm3 Walsh # (0.0-0.8) K/mm3 Seg Neutrophils % (40.0-70.0) % Seg Neutrophils # (1.8-7.7) K/mm3 Sodium (137-145) mmol/L Chloride (98-107) mmol/L BUN (9-20) mg/dL Creatinine (0.8-1.5) mg/dL Glucose (75-100) mg/dL POC Glucose 168 H (70-105) Phosphorus 4.80 H (2.5-4.5) mg/dL PTH Intact 195.6 H (15-65) pg/mL 01/08/17 Range/Units 12:22 RBC (3.65-5.03) M/mm3 Hgb (11.8-15.2) gm/dl Hct (35.5-45.6) % Lymph % (Auto) (13.4-35.0) % Walsh % (Auto) (0.0-7.3) % Lymph # (1.2-5.4) K/mm3 Walsh # (0.0-0.8) K/mm3 Seg Neutrophils % (40.0-70.0) % Seg Neutrophils # (1.8-7.7) K/mm3 Sodium (137-145) mmol/L Chloride (98-107) mmol/L BUN (9-20) mg/dL Creatinine (0.8-1.5) mg/dL Glucose (75-100) mg/dL POC Glucose 234 H (70-105) Phosphorus (2.5-4.5) mg/dL PTH Intact (15-65) pg/mL Diabetes panel 01/08/17 Range/Units 04:14 Sodium 136 L (137-145) mmol/L Potassium 4.1 (3.6-5.0) mmol/L Chloride 96.3 L (98-107) mmol/L Carbon Dioxide 26 (22-30) mmol/L BUN 37 H (9-20) mg/dL Creatinine 5.7 H (0.8-1.5) mg/dL Glucose 164 H (75-100) mg/dL Calcium 8.5 (8.4-10.2) mg/dL Calcium panel 01/08/17 01/08/17 Range/Units 04:14 04:14 Calcium 8.5 (8.4-10.2) mg/dL Phosphorus 4.80 H (2.5-4.5) mg/dL Pituitary panel 01/08/17 Range/Units 04:14 Sodium 136 L (137-145) mmol/L Potassium 4.1 (3.6-5.0) mmol/L Chloride 96.3 L (98-107) mmol/L Carbon Dioxide 26 (22-30) mmol/L BUN 37 H (9-20) mg/dL Creatinine 5.7 H (0.8-1.5) mg/dL Glucose 164 H (75-100) mg/dL Calcium 8.5 (8.4-10.2) mg/dL Adrenal panel 01/08/17 Range/Units 04:14 Sodium 136 L (137-145) mmol/L Potassium 4.1 (3.6-5.0) mmol/L Chloride 96.3 L (98-107) mmol/L Carbon Dioxide 26 (22-30) mmol/L BUN 37 H (9-20) mg/dL Creatinine 5.7 H (0.8-1.5) mg/dL Glucose 164 H (75-100) mg/dL Calcium 8.5 (8.4-10.2) mg/dL Assessment and Plan Patient with ESRD requiring PD catheter. Will plan for Tuesday, pending OR availability. Consent to be done in the AM
[2017-01-08] MEDS: HEPARIN IV PRN (20:33)
--- NOTE | 2017-01-08 22:25 | Progress Note ---
Assessment and Plan (1) Chronic kidney disease, stage V Current Visit: Yes Status: Acute Plan to address problem: Patient due for PD catheter on 01/10/17.Continue HD till then. and after till PD catheter can be used. Chronic kidney disease secondary to hypertensive nephrosclerosis. Unclear if patient has acute on chronic kidney disease versus chronic kidney disease which has progressed to end-stage renal disease. Kidney indices improved with dialysis. (2) Anemia in chronic kidney disease Current Visit: Yes Status: Acute Qualifiers: Chronic kidney disease stage: C Plan to address problem: Follow-up hemoglobin (3) Acute heart failure Current Visit: Yes Status: Acute Qualifiers: Heart failure type: H Plan to address problem: Inadequate response to diuretics. Improved volume status with dialysis ED 50 percent. (4) Hypertensive emergency Current Visit: Yes Status: Acute Plan to address problem: Blood pressure controlled on current medications. Continue management (5) Type 2 diabetes mellitus with diabetic chronic kidney disease Current Visit: Yes Status: Chronic Qualifiers: Diabetes mellitus moth exterminator insulin use: with fpc use Chronic kidney disease stage: stage 5, not on chronic dialysis Qualified Code(s): E11.22 - Type 2 diabetes mellitus with diabetic chronic kidney disease; N18.5 - Chronic kidney disease, stage 5; N18.5 - Chronic kidney disease, stage 5; N18.5 - Chronic kidney disease, stage 5; N18.5 - Chronic kidney disease, stage 5; Z79.4 - lobsterman (current) use of insulin; Z79.4 - lobsterman (current) use of insulin ; Z79.4 - lobsterman (current) use of insulin; Z79.4 - retirement (current) use of insulin Plan to address problem: Blood sugar management by primary attending Subjective Date of service: 01/08/17 Principal diagnosis: ESRD PNA CHF Interval history: Comfortable doing well. Objective - Constitutional Vitals: Vital Signs - 12hr 01/08/17 01/08/17 01/08/17 16:45 16:59 17:00 Temperature 98.8 F 98.5 F Pulse Rate 83 79 77 Respiratory 20 18 Rate Blood Pressure 159/88 150/79 Blood Pressure 110/73 [Left] O2 Sat by Pulse 97 Oximetry 01/08/17 01/08/17 01/08/17 17:15 17:30 17:45 Temperature Pulse Rate 76 76 83 Respiratory Rate Blood Pressure 137/71 124/64 141/72 Blood Pressure [Left] O2 Sat by Pulse Oximetry 01/08/17 01/08/17 01/08/17 18:00 18:15 18:30 Temperature Pulse Rate 80 86 82 Respiratory Rate Blood Pressure 143/66 119/62 140/71 Blood Pressure [Left] O2 Sat by Pulse Oximetry 01/08/17 01/08/17 01/08/17 18:45 19:00 19:15 Temperature Pulse Rate 82 83 82 Respiratory Rate Blood Pressure 140/71 140/71 152/69 Blood Pressure [Left] O2 Sat by Pulse Oximetry 01/08/17 01/08/17 01/08/17 19:30 19:45 20:15 Temperature 98.6 F Pulse Rate 82 83 85 Respiratory 18 Rate Blood Pressure 173/86 138/71 143/82 Blood Pressure [Left] O2 Sat by Pulse Oximetry 01/08/17 01/08/17 01/08/17 20:45 21:05 21:27 Temperature 99.6 F Pulse Rate 85 85 Respiratory 18 20 Rate Blood Pressure 135/79 Blood Pressure [Left] O2 Sat by Pulse 96 Oximetry General appearance: Present: no acute distress, well-nourished - EENT Eyes: PERRL, EOM intact ENT: hearing intact, clear oral mucosa Ears: bilateral: normal - Neck Neck: supple, normal ROM - Respiratory Respiratory effort: normal Respiratory: bilateral: CTA - Breasts Breasts: normal - Cardiovascular Heart rate: 76 Rhythm: regular Heart Sounds: Present: S1 & S2. Absent: gallop, rub Extremities: pulses intact, No edema, normal color, Full ROM - Gastrointestinal General gastrointestinal: Present: soft, non-tender, non-distended, normal bowel sounds - Genitourinary Male genitourinary: normal - Integumentary Integumentary: clear, warm, dry - Musculoskeletal Musculoskeletal: 1, strength equal bilaterally - Neurologic Neurologic: moves all extremities - Psychiatric Psychiatric: memory intact, appropriate mood/affect, intact judgment & insight - Labs CBC & Chem 7: 01/08/17 04:14 01/08/17 04:14 Labs: Abnormal lab results 01/08/17 01/08/17 01/08/17 Range/Units 04:14 04:14 04:14 RBC 3.59 L (3.65-5.03) M/mm3 Hgb 10.9 L (11.8-15.2) gm/dl Hct 31.7 L (35.5-45.6) % Lymph % (Auto) 9.4 L (13.4-35.0) % Knott % (Auto) 11.7 H (0.0-7.3) % Lymph # 1.0 L (1.2-5.4) K/mm3 Knott # 1.2 H (0.0-0.8) K/mm3 Seg Neutrophils % 78.3 H (40.0-70.0) % Seg Neutrophils # 7.9 H (1.8-7.7) K/mm3 Sodium 136 L (137-145) mmol/L Chloride 96.3 L (98-107) mmol/L BUN 37 H (9-20) mg/dL Creatinine 5.7 H (0.8-1.5) mg/dL Glucose 164 H (75-100) mg/dL POC Glucose (70-105) Phosphorus 4.80 H (2.5-4.5) mg/dL PTH Intact (15-65) pg/mL 01/08/17 01/08/17 01/08/17 Range/Units 04:14 07:40 12:22 RBC (3.65-5.03) M/mm3 Hgb (11.8-15.2) gm/dl Hct (35.5-45.6) % Lymph % (Auto) (13.4-35.0) % Knott % (Auto) (0.0-7.3) % Lymph # (1.2-5.4) K/mm3 Knott # (0.0-0.8) K/mm3 Seg Neutrophils % (40.0-70.0) % Seg Neutrophils # (1.8-7.7) K/mm3 Sodium (137-145) mmol/L Chloride (98-107) mmol/L BUN (9-20) mg/dL Creatinine (0.8-1.5) mg/dL Glucose (75-100) mg/dL POC Glucose 168 H 234 H (70-105) Phosphorus (2.5-4.5) mg/dL PTH Intact 195.6 H (15-65) pg/mL 01/08/17 Range/Units 22:20 RBC (3.65-5.03) M/mm3 Hgb (11.8-15.2) gm/dl Hct (35.5-45.6) % Lymph % (Auto) (13.4-35.0) % Knott % (Auto) (0.0-7.3) % Lymph # (1.2-5.4) K/mm3 Knott # (0.0-0.8) K/mm3 Seg Neutrophils % (40.0-70.0) % Seg Neutrophils # (1.8-7.7) K/mm3 Sodium (137-145) mmol/L Chloride (98-107) mmol/L BUN (9-20) mg/dL Creatinine (0.8-1.5) mg/dL Glucose (75-100) mg/dL POC Glucose 162 H (70-105) Phosphorus (2.5-4.5) mg/dL PTH Intact (15-65) pg/mL
[2017-01-09] MEDS: APRESOLINE PO SCH ×5 (02:05→22:22)
[2017-01-09] MEDS: COREG PO SCH ×3 (02:05→22:22)
[2017-01-09] MEDS: LASIX PO SCH ×3 (06:52→18:18)
[2017-01-09] MEDS: NOVOLOG SUB-Q SCH ×4 (08:31→22:23)
[2017-01-09] MEDS: ZITHROMAX PO SCH (10:08)
[2017-01-09] MEDS: ZESTRIL PO SCH (10:09)
[2017-01-09] MEDS: IMDUR PO SCH (10:10)
[2017-01-09] MEDS: LOVENOX SUB-Q SCH (10:12)
--- NOTE | 2017-01-09 10:59 | Progress Note ---
Assessment and Plan 51yo male: Assessment: Acute diastolic heart failure/volume overload Moderate to severe LVH - advanced hypertensive heart disease Malignant recalcitrant HTN - improving DM - HgbA1c is 8 AMY on CKD - hd Elevated DDimer - V/Q scan with low probability for PE Dyslipidemia Plan: Clinically improving I re-reviewed his cardiac status with him today at length Consider ischemic w/u w stress mpi prior to discharge Assessment and plan reviewed with pt at bedside. Subjective Date of service: 01/09/17 Principal diagnosis: HF Interval history: feels a lot better Objective Vital Signs Temp Pulse Resp BP BP Pulse Ox 01/09/17 08:05 99.1 F 18 160/95 01/09/17 04:59 97.9 F 85 20 125/65 98 01/09/17 00:43 98.4 F 86 20 132/81 95 01/08/17 21:27 99.6 F 85 20 135/79 96 01/08/17 21:05 18 01/08/17 20:45 85 01/08/17 20:15 98.6 F 85 18 143/82 01/08/17 19:45 83 138/71 01/08/17 19:30 82 173/86 01/08/17 19:15 82 152/69 01/08/17 19:00 83 140/71 01/08/17 18:45 82 140/71 01/08/17 18:30 82 140/71 01/08/17 18:15 86 119/62 01/08/17 18:00 80 143/66 01/08/17 17:45 83 141/72 01/08/17 17:30 76 124/64 01/08/17 17:15 76 137/71 01/08/17 17:00 77 150/79 01/08/17 16:59 98.5 F 79 18 110/73 97 01/08/17 16:45 98.8 F 83 20 159/88 - Physical Examination General: Appears Well, No Apparent Distress HEENT: Positive: PERRL, Normocephaly, Mucus Membranes Moist Neck: Positive: neck supple Neuro: Positive: Grossly Intact, Cranial Nerve 2-12 Intact Abdomen: Positive: Unremarkable, Soft, Active Bowel Sounds. Negative: Tender Skin: Positive: Clear. Negative: Rash Musculoskeletal: No Pain, Normal Range of Motion Extremities: Absent: edema - Imaging and Cardiology EKG: report reviewed, image reviewed Echo: report reviewed - EKG Sinus rhythms and dysrhythmias: sinus rhythm Chamber hypertrophy or enlargement: left ventricular hypertro Repolarization changes or abnormalities: repolarization abn secondary to ventricular hypertrophy
--- NOTE | 2017-01-09 11:40 | Event Note ---
Date: 01/09/17 Pt indisposed at this time. unable to see as a result. Will need cardiac cleareance prior to sx. Will see in am for consent for PD cath insertion.
--- NOTE | 2017-01-09 14:21 | Progress Note ---
Assessment and Plan - Patient Problems (1) Chronic kidney disease, stage V Current Visit: Yes Status: Acute Plan to address problem: Chronic kidney disease secondary to hypertensive nephrosclerosis. Unclear if patient has acute on chronic kidney disease versus chronic kidney disease which has progressed to end-stage renal disease. Kidney indices improved with dialysis. Labs today. Will check kidney function and electrolytes (2) Anemia in chronic kidney disease Current Visit: Yes Status: Acute Qualifiers: Chronic kidney disease stage: C Plan to address problem: Follow-up hemoglobin (3) Acute heart failure Current Visit: Yes Status: Acute Qualifiers: Heart failure type: H Plan to address problem: Combined systolic and diastolic heart failure. Patient with inadequate response to diuretics. Improved volume status with dialysis (4) Hypertensive emergency Current Visit: Yes Status: Acute Plan to address problem: Blood pressure improved on current medications. Continue management (5) Type 2 diabetes mellitus with diabetic chronic kidney disease Current Visit: Yes Status: Chronic Qualifiers: Diabetes mellitus fci insulin use: with intermission coordinator use Chronic kidney disease stage: stage 5, not on chronic dialysis Qualified Code(s): E11.22 - Type 2 diabetes mellitus with diabetic chronic kidney disease; N18.5 - Chronic kidney disease, stage 5; N18.5 - Chronic kidney disease, stage 5; N18.5 - Chronic kidney disease, stage 5; N18.5 - Chronic kidney disease, stage 5; Z79.4 - correction (current) use of insulin; Z79.4 - correction (current) use of insulin ; Z79.4 - correction (current) use of insulin; Z79.4 - local intermodal truck driver (current) use of insulin Plan to address problem: Blood sugar management by primary attending (6) Altered mental state Current Visit: Yes Status: Acute Qualifiers: Altered mental status type: A Coma depth: C Coma timing: C Plan to address problem: Etiology uncertain. Needs CT scan of the head and further evaluation per primary attending. Subjective Date of service: 01/09/17 Principal diagnosis: HF Interval history: Patient seen lying in bed. and daughter at the bedside. Patient's is not communicating today. Not following commands. He is nonverbal. Nurse reports that they found him in the bathroom incontinent of stool and confused. They cleaned him and helped him to the bed. Objective - Exam Narrative Exam: Middle aged -Swiss male lying in bed in no acute distress HEENT: NCAT, pink oral mucous membrane Neck: Supple, no venous distention CVS: S1S2 RRR with no murmur, rub or gallop Chest: Clear to auscultation Abdomen: Protuberant, soft, nontender, no organomegaly, bowel sounds are present Extremities: No edema Neuro: Nonverbal, not following commands. No focal deficits - Vital Signs Vital signs: Vital Signs - 12hr 01/09/17 01/09/17 01/09/17 04:59 08:05 12:46 Temperature 97.9 F 99.1 F 99.1 F Pulse Rate 85 73 Respiratory 20 18 18 Rate Blood Pressure 125/65 160/95 Blood Pressure 155/90 [Left] O2 Sat by Pulse 98 95 Oximetry - Lab 01/08/17 04:14 01/08/17 04:14 Most recent lab results Calcium 8.5 mg/dL (8.4-10.2) 01/08/17 04:14 Phosphorus 4.80 mg/dL (2.5-4.5) H 01/08/17 04:14 Urine Creatinine 112.9 mg/dL (0.1-20.0) H 01/05/17 20:53 Urine Sodium 54 mmol/L 01/05/17 20:53 Urine Total Protein 248 mg/dL (5-11.8) H 01/05/17 20:53
--- NOTE | 2017-01-09 14:53 | Progress Note ---
Assessment and Plan (1) Hypertensive emergency Current Visit: Yes Status: Acute Plan to address problem: Blood pressure controlled on current medications. Continue management (2) Chronic kidney disease, stage V Current Visit: Yes Status: Acute Plan to address problem: Patient due for PD catheter on 01/10/17.Continue HD till then. and after till PD catheter can be used. Chronic kidney disease secondary to hypertensive nephrosclerosis. Unclear if patient has acute on chronic kidney disease versus chronic kidney disease which has progressed to end-stage renal disease. Kidney indices improved with dialysis. (3) Anemia in chronic kidney disease Current Visit: Yes Status: Acute Qualifiers: Chronic kidney disease stage: C Plan to address problem: Follow-up hemoglobin (4) Acute heart failure Current Visit: Yes Status: Acute Qualifiers: Heart failure type: H Plan to address problem: Inadequate response to diuretics. Improved volume status with dialysis ED 50 percent. (5) Type 2 diabetes mellitus with diabetic chronic kidney disease Current Visit: Yes Status: Chronic Qualifiers: Diabetes mellitus exterminator helper termite insulin use: with exterminator helper termite use Chronic kidney disease stage: stage 5, not on chronic dialysis Qualified Code(s): E11.22 - Type 2 diabetes mellitus with diabetic chronic kidney disease; N18.5 - Chronic kidney disease, stage 5; N18.5 - Chronic kidney disease, stage 5; N18.5 - Chronic kidney disease, stage 5; N18.5 - Chronic kidney disease, stage 5; Z79.4 - joint terminal attack controller (current) use of insulin; Z79.4 - joint terminal attack controller (current) use of insulin ; Z79.4 - joint terminal attack controller (current) use of insulin; Z79.4 - [facility] (current) use of insulin Plan to address problem: Blood sugars well controlled Subjective Date of service: 01/09/17 Principal diagnosis: ESRD PNA CHF Interval history: Comfortable doing well. Objective - Constitutional Vitals: Vital Signs - 12hr 01/09/17 01/09/17 01/09/17 04:59 08:05 12:46 Temperature 97.9 F 99.1 F 99.1 F Pulse Rate 85 73 Respiratory 20 18 18 Rate Blood Pressure 125/65 160/95 Blood Pressure 155/90 [Left] O2 Sat by Pulse 98 95 Oximetry General appearance: Present: no acute distress, well-nourished - EENT Eyes: PERRL, EOM intact ENT: hearing intact, clear oral mucosa Ears: bilateral: normal - Neck Neck: supple, normal ROM - Respiratory Respiratory effort: normal Respiratory: bilateral: CTA - Breasts Breasts: normal - Cardiovascular Rhythm: regular Heart Sounds: Present: S1 & S2. Absent: gallop, rub Extremities: pulses intact, No edema, normal color, Full ROM - Gastrointestinal General gastrointestinal: Present: soft, non-tender, non-distended, normal bowel sounds - Genitourinary Male genitourinary: normal - Integumentary Integumentary: clear, warm, dry - Musculoskeletal Musculoskeletal: 1, strength equal bilaterally - Neurologic Neurologic: moves all extremities - Psychiatric Psychiatric: memory intact, appropriate mood/affect, intact judgment & insight - Labs CBC & Chem 7: 01/08/17 04:14 01/08/17 04:14 Labs: Abnormal lab results 01/08/17 01/08/17 01/09/17 Range/Units 16:29 22:20 08:11 POC Glucose 119 H 162 H 143 H (70-105) 01/09/17 Range/Units 12:10 POC Glucose 234 H (70-105)
[2017-01-09 16:46] LABS: Albumin 3.3 g/dL (3.9-5); Albumin/Globulin Ratio 1.1 %; Bilirubin,Total 0.3 mg/dL (0.1-1.2); Calcium 8.8 mg/dL (8.4-10.2); Chloride 98.3 mmol/L (98-107); Potassium 4.3 mmol/L (3.6-5.0); Total Protein 6.2 g/dL (6.3-8.2)
[2017-01-09 17:48] LABS: Myeloperoxidase Antibody <1.0 AI (<1.0)
[2017-01-09] MEDS: LEVEMIR SUB-Q SCH (22:26)
[2017-01-10 05:47] LABS: Basophils % (Auto) 0.6 % (0.0-1.8); Eosinophils % (Auto) 1.3 % (0.0-4.3); Hematocrit 32.2 % (35.5-45.6); Mean Corpuscular HGB Conc 34 % (32-34); Mean Corpuscular Hemoglobin 30 pg (28-32); Mean Corpuscular Volume 89 fl (84-94); Platelet Count 271 K/mm3 (140-440); Red Blood Count 3.64 M/mm3 (3.65-5.03); Red Cell Distribution Width 13.9 % (13.2-15.2); White Blood Count 10.2 K/mm3 (4.5-11.0)
[2017-01-10 06:06] LABS: Calcium 8.9 mg/dL (8.4-10.2); Chloride 98.6 mmol/L (98-107); Potassium 4.1 mmol/L (3.6-5.0)
[2017-01-10] MEDS: APRESOLINE PO SCH ×3 (06:22→18:26)
[2017-01-10] MEDS: LASIX PO SCH ×2 (06:22→18:26)
--- NOTE | 2017-01-10 08:42 | Progress Note ---
Assessment and Plan - Patient Problems (1) Chronic kidney disease, stage V Current Visit: Yes Status: Acute Plan to address problem: Chronic kidney disease secondary to hypertensive nephrosclerosis. It appears Patient has chronic kidney disease which has progressed to end-stage renal disease. Kidney indices improved with dialysis. Plan is to do peritoneal dialysis as an outpatient. Patient needs cardiac clearance before PD catheter placement. For hemodialysis today (2) Anemia in chronic kidney disease Current Visit: Yes Status: Acute Qualifiers: Chronic kidney disease stage: C Plan to address problem: Follow-up hemoglobin (3) Acute heart failure Current Visit: Yes Status: Acute Qualifiers: Heart failure type: H Plan to address problem: Combined systolic and diastolic heart failure. Patient with inadequate response to diuretics. Improved volume status with dialysis (4) Hypertensive emergency Current Visit: Yes Status: Acute Plan to address problem: Blood pressure high this am. Will adjust medications. Continue other management (5) Type 2 diabetes mellitus with diabetic chronic kidney disease Current Visit: Yes Status: Chronic Qualifiers: Diabetes mellitus intermodal dispatcher insulin use: with group home use Chronic kidney disease stage: stage 5, not on chronic dialysis Qualified Code(s): E11.22 - Type 2 diabetes mellitus with diabetic chronic kidney disease; N18.5 - Chronic kidney disease, stage 5; N18.5 - Chronic kidney disease, stage 5; N18.5 - Chronic kidney disease, stage 5; N18.5 - Chronic kidney disease, stage 5; Z79.4 - terminal worker (current) use of insulin; Z79.4 - nursing home (current) use of insulin ; Z79.4 - terminal worker (current) use of insulin; Z79.4 - nursing home (current) use of insulin Plan to address problem: Blood sugar management by primary attending (6) Altered mental state Current Visit: Yes Status: Acute Qualifiers: Altered mental status type: A Coma depth: C Coma timing: C Plan to address problem: Resolved. Mental status back to baseline Subjective Date of service: 01/10/17 Principal diagnosis: ESRD PNA CHF Interval history: Patient seen lying in bed. He has no complaints this morning. Mental status is back to baseline. He is awake and oriented 3. He denies any nausea or vomiting. No pain. No shortness of breath. His only complaint is anorexia Objective - Exam Narrative Exam: Middle aged -Malaysian male lying in bed in no acute distress HEENT: NCAT, pink oral mucous membrane Neck: Supple, no venous distention CVS: S1S2 RRR with no murmur, rub or gallop Chest: Clear to auscultation Abdomen: Protuberant, soft, nontender, no organomegaly, bowel sounds are present Extremities: No edema Neuro: Nonverbal, not following commands. No focal deficits - Vital Signs Vital signs: Vital Signs - 12hr 01/10/17 01:04 Pulse Rate 77 Respiratory 18 Rate Blood Pressure 142/70 O2 Sat by Pulse 96 Oximetry - Lab 01/10/17 05:05 01/10/17 05:05 Most recent lab results Calcium 8.9 mg/dL (8.4-10.2) 01/10/17 05:05 Phosphorus 4.80 mg/dL (2.5-4.5) H 01/08/17 04:14 Magnesium 2.00 mg/dL (1.7-2.3) 01/09/17 16:12 Urine Creatinine 112.9 mg/dL (0.1-20.0) H 01/05/17 20:53 Urine Sodium 54 mmol/L 01/05/17 20:53 Urine Total Protein 248 mg/dL (5-11.8) H 01/05/17 20:53
[2017-01-10] MEDS ORDERED: APRESOLINE PO SCH (08:43)
[2017-01-10] MEDS: NOVOLOG SUB-Q SCH ×4 (09:10→22:13)
[2017-01-10] MEDS: COREG PO SCH ×2 (09:12→22:12)
[2017-01-10] MEDS: ZITHROMAX PO SCH (09:12)
[2017-01-10] MEDS: IMDUR PO SCH (09:13)
[2017-01-10] MEDS: ZESTRIL PO SCH (09:13)
[2017-01-10] MEDS: LOVENOX SUB-Q SCH (09:13)
--- NOTE | 2017-01-10 09:45 | Vascular Lab Report ---
Upper extremity vein mapping Reason for exam: Preoperative evaluation for hemodialysis access Comments: On the right, the cephalic vein is not usable from wrist to shoulder due to small size. The basilic vein is not usable from wrist to shoulder due to small size. The brachial and radial arteries are patent. The radial artery is of normal caliber. On the left, the cephalic vein is usable from wrist to shoulder. The basilic vein is usable from elbow to shoulder. The brachial and radial arteries are patent. The radial artery is of normal caliber. Impression: Right cephalic and basilic veins are not usable due to small size. Left cephalic and basilic veins are usable. No arterial issues were identified.
--- NOTE | 2017-01-10 09:51 | Vascular Lab Report ---
MISCELLANEOUS VESSEL IDENTIFICATION: COMMENTS ON THE SCAN: The right internal jugular vein was identified and under real-time ultrasound guidance was cannulated. IMPRESSION: Successful ultrasound guided vein cannulation.
[2017-01-10] MEDS ORDERED: NACL 0.9% 100 ML IV PRN (10:00)
--- NOTE | 2017-01-10 10:51 | Progress Note ---
Assessment and Plan Assessment: Acute diastolic heart failure - pulm edema on admission CXR Moderate to severe LVH - advanced hypertensive heart disease Malignant recalcitrant HTN - improving DM AMY on CKD - requiring dialysis Elevated DDimer - V/Q scan with low probability for PE Dyslipidemia Plan: Currently stable cardiac status. Cont present cardiac regimen, including coreg, lisinopril, hydralazine, imdur, lasix, lipitor. Per nephrology, plan is to do peritoneal dialysis as an outpatient. Patient needs cardiac clearance before PD catheter placement. Will plan for lexiscan MPI stress test in AM. NPO after MN. Assessment and plan reviewed with pt at bedside. The patient has been seen in conjunction with Dr. Preciado who agrees with the assessment and plan of care. Subjective Date of service: 01/10/17 Principal diagnosis: ESRD PNA CHF Interval history: Pt resting comfortably in bed, no current cardiac complaints. Objective Last Vital Signs Temp 97.5 F L 01/09/17 20:29 Pulse 77 01/10/17 01:04 Resp 18 01/10/17 01:04 BP 142/70 01/10/17 01:04 Pulse Ox 96 01/10/17 01:04 - Physical Examination General: Appears Well, No Apparent Distress HEENT: Positive: PERRL, Normocephaly, Mucus Membranes Moist Neck: Positive: neck supple Cardiac: Positive: Reg Rate and Rhythm, S1/S2 Lungs: Positive: clear to auscultation Neuro: Positive: Grossly Intact, Cranial Nerve 2-12 Intact Abdomen: Positive: Unremarkable, Soft, Active Bowel Sounds. Negative: Tender Skin: Positive: Clear. Negative: Rash Musculoskeletal: No Pain, Normal Range of Motion Extremities: Absent: edema - Labs and Meds Cardiac Enzymes 01/09/17 Range/Units 16:12 AST 18 (5-40) units/L CBC 01/10/17 Range/Units 05:05 WBC 10.2 (4.5-11.0) K/mm3 RBC 3.64 L (3.65-5.03) M/mm3 Hgb 11.0 L (11.8-15.2) gm/dl Hct 32.2 L (35.5-45.6) % Plt Count 271 (140-440) K/mm3 Lymph # 1.5 (1.2-5.4) K/mm3 [place] # 1.1 H (0.0-0.8) K/mm3 Eos # 0.1 (0.0-0.4) K/mm3 Baso # 0.1 (0.0-0.1) K/mm3 Comprehensive Metabolic Panel 01/09/17 01/10/17 Range/Units 16:12 05:05 Sodium 137 140 (137-145) mmol/L Potassium 4.3 4.1 (3.6-5.0) mmol/L Chloride 98.3 98.6 (98-107) mmol/L Carbon Dioxide 25 24 (22-30) mmol/L BUN 37 H 44 H (9-20) mg/dL Creatinine 6.1 H 7.1 H (0.8-1.5) mg/dL Glucose 131 H 114 H (75-100) mg/dL Calcium 8.8 8.9 (8.4-10.2) mg/dL AST 18 (5-40) units/L ALT 11 (7-56) units/L Alkaline Phosphatase 48 (35-129) units/L Total Protein 6.2 L (6.3-8.2) g/dL Albumin 3.3 L (3.9-5) g/dL - Imaging and Cardiology EKG: report reviewed, image reviewed Echo: report reviewed - EKG Sinus rhythms and dysrhythmias: sinus rhythm Chamber hypertrophy or enlargement: left ventricular hypertro Repolarization changes or abnormalities: repolarization abn secondary to ventricular hypertrophy
--- NOTE | 2017-01-10 16:17 | Progress Note ---
Assessment and Plan (1) Hypertensive emergency Current Visit: Yes Status: Acute Plan to address problem: Blood pressure controlled on current medications. Continue management (2) Chronic kidney disease, stage V Current Visit: Yes Status: Acute Plan to address problem: Patient due for PD catheter on 01/10/17.Continue HD till then. and after till PD catheter can be used. Chronic kidney disease secondary to hypertensive nephrosclerosis. Unclear if patient has acute on chronic kidney disease versus chronic kidney disease which has progressed to end-stage renal disease. Kidney indices improved with dialysis. (3) Anemia in chronic kidney disease Current Visit: Yes Status: Acute Qualifiers: Chronic kidney disease stage: C Plan to address problem: Follow-up hemoglobin (4) Acute heart failure Current Visit: Yes Status: Acute Qualifiers: Heart failure type: H Plan to address problem: Inadequate response to diuretics. Improved volume status with dialysis ED 50 percent. (5) Type 2 diabetes mellitus with diabetic chronic kidney disease Current Visit: Yes Status: Chronic Qualifiers: Diabetes mellitus superintendent terminal insulin use: with senior living use Chronic kidney disease stage: stage 5, not on chronic dialysis Qualified Code(s): E11.22 - Type 2 diabetes mellitus with diabetic chronic kidney disease; N18.5 - Chronic kidney disease, stage 5; N18.5 - Chronic kidney disease, stage 5; N18.5 - Chronic kidney disease, stage 5; N18.5 - Chronic kidney disease, stage 5; Z79.4 - intermodal owner operator truck driver (current) use of insulin; Z79.4 - intermodal owner operator truck driver (current) use of insulin ; Z79.4 - intermodal owner operator truck driver (current) use of insulin; Z79.4 - long-term (current) use of insulin Plan to address problem: Blood sugars well controlled 6)Discharge planning issues--Now family realizes that patient cannot handle peritoneal dialysis.Family wants to fly back to [place] and get AV graft there and cont HD there.They want to go to ER for admission after landing in ER.Patient maybe discharged after HD.Sister was concerned about his Lethargy.Requested MR Brain which was ordered. Subjective Date of service: 01/10/17 Principal diagnosis: ESRD PNA CHF Interval history: Comfortable doing well. Objective - Constitutional Vitals: Vital Signs - 12hr 01/10/17 01/10/17 08:22 13:25 Temperature 98.7 F 98.6 F Pulse Rate 76 72 Respiratory 20 20 Rate Blood Pressure 194/102 113/65 O2 Sat by Pulse 98 95 Oximetry General appearance: Present: no acute distress, well-nourished - EENT Eyes: PERRL, EOM intact ENT: hearing intact, clear oral mucosa Ears: bilateral: normal - Neck Neck: supple, normal ROM - Respiratory Respiratory effort: normal Respiratory: bilateral: CTA - Breasts Breasts: normal - Cardiovascular Rhythm: regular Heart Sounds: Present: S1 & S2. Absent: gallop, rub Extremities: pulses intact, No edema, normal color, Full ROM - Gastrointestinal General gastrointestinal: Present: soft, non-tender, non-distended, normal bowel sounds - Genitourinary Male genitourinary: normal - Integumentary Integumentary: clear, warm, dry - Musculoskeletal Musculoskeletal: 1, strength equal bilaterally - Neurologic Neurologic: moves all extremities - Psychiatric Psychiatric: memory intact, appropriate mood/affect, intact judgment & insight - Labs CBC & Chem 7: 01/10/17 05:05 01/11/17 04:53 Labs: Abnormal lab results 01/09/17 01/09/17 01/09/17 Range/Units 16:12 17:20 20:48 RBC (3.65-5.03) M/mm3 Hgb (11.8-15.2) gm/dl Hct (35.5-45.6) % Fisher % (Auto) (0.0-7.3) % Fisher # (0.0-0.8) K/mm3 Seg Neutrophils % (40.0-70.0) % BUN 37 H (9-20) mg/dL Creatinine 6.1 H (0.8-1.5) mg/dL Glucose 131 H (75-100) mg/dL POC Glucose 122 H 135 H (70-105) Total Protein 6.2 L (6.3-8.2) g/dL Albumin 3.3 L (3.9-5) g/dL 01/10/17 01/10/17 01/10/17 Range/Units 05:05 05:05 08:28 RBC 3.64 L (3.65-5.03) M/mm3 Hgb 11.0 L (11.8-15.2) gm/dl Hct 32.2 L (35.5-45.6) % Fisher % (Auto) 10.9 H (0.0-7.3) % Fisher # 1.1 H (0.0-0.8) K/mm3 Seg Neutrophils % 72.1 H (40.0-70.0) % BUN 44 H (9-20) mg/dL Creatinine 7.1 H (0.8-1.5) mg/dL Glucose 114 H (75-100) mg/dL POC Glucose 131 H (70-105) Total Protein (6.3-8.2) g/dL Albumin (3.9-5) g/dL 01/10/ Range/Units 13:34 RBC (3.65-5.03) M/mm3 Hgb (11.8-15.2) gm/dl Hct (35.5-45.6) % Fisher % (Auto) (0.0-7.3) % Fisher # (0.0-0.8) K/mm3 Seg Neutrophils % (40.0-70.0) % BUN (9-20) mg/dL Creatinine (0.8-1.5) mg/dL Glucose (75-100) mg/dL POC Glucose 227 H (70-105) Total Protein (6.3-8.2) g/dL Albumin (3.9-5) g/dL
--- NOTE | 2017-01-10 17:23 | Progress Note ---
Assessment and Plan CKD stg 5. Family is now leaning away from PD due to mental status and responsibility requirements. Pt states that he is unsure after a long discussion of the risks and benefits. He is undergoing w/u for ms decline. Will await neuro clearance as well as card clearance prior to proceeding with placement. Continue supportive care. Subjective Date of service: 01/10/17 Patient Reports: Positive: afebrile, other (family at bedside. ) Objective Vital Signs - 12hr 01/10/17 01/10/17 08:22 13:25 Temperature 98.7 F 98.6 F Pulse Rate 76 72 Respiratory 20 20 Rate Blood Pressure 194/102 113/65 O2 Sat by Pulse 98 95 Oximetry - General physical appearance no distress - Respiratory normal respiratory effort - Abdomen soft, not tender - Psychiatric oriented to time, oriented to person, oriented to place, other (flat affect with normal speech) - Labs 01/10/17 05:05 01/10/17 05:05 Diabetes panel 01/10/17 Range/Units 05:05 Sodium 140 (137-145) mmol/L Potassium 4.1 (3.6-5.0) mmol/L Chloride 98.6 (98-107) mmol/L Carbon Dioxide 24 (22-30) mmol/L BUN 44 H (9-20) mg/dL Creatinine 7.1 H (0.8-1.5) mg/dL Glucose 114 H (75-100) mg/dL Calcium 8.9 (8.4-10.2) mg/dL Calcium panel 01/10/17 Range/Units 05:05 Calcium 8.9 (8.4-10.2) mg/dL Pituitary panel 01/10/17 Range/Units 05:05 Sodium 140 (137-145) mmol/L Potassium 4.1 (3.6-5.0) mmol/L Chloride 98.6 (98-107) mmol/L Carbon Dioxide 24 (22-30) mmol/L BUN 44 H (9-20) mg/dL Creatinine 7.1 H (0.8-1.5) mg/dL Glucose 114 H (75-100) mg/dL Calcium 8.9 (8.4-10.2) mg/dL Adrenal panel 01/10/17 Range/Units 05:05 Sodium 140 (137-145) mmol/L Potassium 4.1 (3.6-5.0) mmol/L Chloride 98.6 (98-107) mmol/L Carbon Dioxide 24 (22-30) mmol/L BUN 44 H (9-20) mg/dL Creatinine 7.1 H (0.8-1.5) mg/dL Glucose 114 H (75-100) mg/dL Calcium 8.9 (8.4-10.2) mg/dL
[2017-01-10] MEDS: LEVEMIR SUB-Q SCH (22:13)
[2017-01-11] MEDS: APRESOLINE PO SCH ×3 (02:38→18:38)
[2017-01-11] MEDS: LASIX PO SCH ×2 (05:25→18:38)
[2017-01-11 05:49] LABS: Calcium 8.7 mg/dL (8.4-10.2); Chloride 96.6 mmol/L (98-107); Potassium 3.7 mmol/L (3.6-5.0)
--- NOTE | 2017-01-11 08:24 | Progress Note ---
Assessment and Plan - Patient Problems (1) Chronic kidney disease, stage V Current Visit: Yes Status: Acute Plan to address problem: Chronic kidney disease secondary to hypertensive nephrosclerosis. It appears Patient has chronic kidney disease which has progressed to end-stage renal disease. Kidney indices improved with dialysis. Plan is to do peritoneal dialysis as an outpatient. Patient needs cardiac clearance before PD catheter placement. (2) Anemia in chronic kidney disease Current Visit: Yes Status: Acute Qualifiers: Chronic kidney disease stage: C Plan to address problem: Continue Erythropoetin on dialysis. Follow-up hemoglobin (3) Acute heart failure Current Visit: Yes Status: Acute Qualifiers: Heart failure type: H Plan to address problem: Combined systolic and diastolic heart failure. Patient with inadequate response to diuretics. Improved volume status with dialysis. Stress test planned for this morning (4) Hypertensive emergency Current Visit: Yes Status: Acute Plan to address problem: Blood pressure has improved. Continue current medications. Continue other management (5) Type 2 diabetes mellitus with diabetic chronic kidney disease Current Visit: Yes Status: Chronic Qualifiers: Diabetes mellitus superintendent terminal insulin use: with [facility] use Chronic kidney disease stage: stage 5, not on chronic dialysis Qualified Code(s): E11.22 - Type 2 diabetes mellitus with diabetic chronic kidney disease; N18.5 - Chronic kidney disease, stage 5; N18.5 - Chronic kidney disease, stage 5; N18.5 - Chronic kidney disease, stage 5; N18.5 - Chronic kidney disease, stage 5; Z79.4 - terminal worker (current) use of insulin; Z79.4 - nursing home (current) use of insulin ; Z79.4 - terminal worker (current) use of insulin; Z79.4 - terminal worker (current) use of insulin Plan to address problem: Blood sugar management by primary attending (6) Altered mental state Current Visit: Yes Status: Acute Qualifiers: Altered mental status type: A Coma depth: C Coma timing: C Plan to address problem: Resolved. Mental status back to baseline Subjective Date of service: 01/11/17 Principal diagnosis: ESRD PNA CHF Interval history: Patient seen lying in bed. He has no complaints this morning. He is awake and oriented 3. He denies any nausea or vomiting. No pain. No shortness of breath. His sisters are here from [place] and would like to take him back Objective - Exam Narrative Exam: Middle aged -[place]oven[place] male lying in bed in no acute distress HEENT: NCAT, pink oral mucous membrane Neck: Supple, no venous distention CVS: S1S2 RRR with no murmur, rub or gallop Chest: Clear to auscultation Abdomen: Protuberant, soft, nontender, no organomegaly, bowel sounds are present Extremities: No edema Neuro: Nonverbal, not following commands. No focal deficits - Vital Signs Vital signs: Vital Signs - 12hr 01/10/17 01/10/17 01/10/17 20:28 22:00 22:12 Temperature 98.5 F Pulse Rate 78 81 78 Respiratory 20 Rate Blood Pressure 133/59 133/59 O2 Sat by Pulse 96 Oximetry - Lab 01/10/17 05:05 01/11/17 04:53 Most recent lab results Calcium 8.7 mg/dL (8.4-10.2) 01/11/17 04:53 Phosphorus 4.80 mg/dL (2.5-4.5) H 01/08/17 04:14 Magnesium 2.00 mg/dL (1.7-2.3) 01/09/17 16:12 Urine Creatinine 112.9 mg/dL (0.1-20.0) H 01/05/17 20:53 Urine Sodium 54 mmol/L 01/05/17 20:53 Urine Total Protein 248 mg/dL (5-11.8) H 01/05/17 20:53
[2017-01-11] MEDS: NOVOLOG SUB-Q SCH ×4 (08:38→22:12)
[2017-01-11] MEDS: IMDUR PO SCH (09:25)
[2017-01-11] MEDS: COREG PO SCH ×2 (09:35→22:10)
[2017-01-11] MEDS: ZESTRIL PO SCH (09:35)
[2017-01-11] MEDS: ZITHROMAX PO SCH (09:40)
[2017-01-11] MEDS ORDERED: LEXISCAN IV ONE ×2 (11:07→11:09)
[2017-01-11] MEDS: LOVENOX SUB-Q SCH (11:30)
--- NOTE | 2017-01-11 12:10 | Progress Note ---
Assessment and Plan Assessment: Acute diastolic heart failure - EF 45-50%; pulm edema on admission CXR Moderate to severe LVH - advanced hypertensive heart disease Malignant recalcitrant HTN - improving DM AMY on CKD - requiring dialysis Elevated DDimer - V/Q scan with low probability for PE Dyslipidemia Plan: Proceed with lexiscan MPI stress test. Await findings. Currently stable cardiac status. Cont present cardiac regimen, including coreg, lisinopril, hydralazine, imdur, lasix, lipitor. Per nephrology, plan is to do peritoneal dialysis as an outpatient. Patient needs cardiac clearance before PD catheter placement. Assessment and plan reviewed with pt at bedside. The patient has been seen in conjunction with Dr. Preciado who agrees with the assessment and plan of care. Subjective Date of service: 01/11/17 Principal diagnosis: ESRD PNA CHF Interval history: Pt for stress test today. no current cardiac complaints. Objective Last Vital Signs Temp 98.5 F 01/10/17 20:28 Pulse 78 01/10/17 22:12 Resp 20 01/10/17 20:28 BP 133/59 01/10/17 22:12 Pulse Ox 96 01/10/17 20:28 - Physical Examination General: Appears Well, No Apparent Distress HEENT: Positive: PERRL, Normocephaly, Mucus Membranes Moist Neck: Positive: neck supple Cardiac: Positive: Reg Rate and Rhythm, S1/S2 Lungs: Positive: clear to auscultation Neuro: Positive: Grossly Intact, Cranial Nerve 2-12 Intact Abdomen: Positive: Unremarkable, Soft, Active Bowel Sounds. Negative: Tender Skin: Positive: Clear. Negative: Rash Musculoskeletal: No Pain, Normal Range of Motion Extremities: Absent: edema - Labs and Meds Cardiac Enzymes 01/11/17 Range/Units 04:53 CK-MB (CK-2) 2.0 (0.0-4.0) ng/mL Comprehensive Metabolic Panel 01/11/17 Range/Units 04:53 Carbon Dioxide 26 (22-30) mmol/L BUN 51 H (9-20) mg/dL Creatinine 7.3 H (0.8-1.5) mg/dL Glucose 120 H (75-100) mg/dL Calcium 8.7 (8.4-10.2) mg/dL - Imaging and Cardiology EKG: report reviewed, image reviewed Echo: report reviewed - EKG Sinus rhythms and dysrhythmias: sinus rhythm Chamber hypertrophy or enlargement: left ventricular hypertro Repolarization changes or abnormalities: repolarization abn secondary to ventricular hypertrophy
--- NOTE | 2017-01-11 13:18 | Event Note ---
Date: 01/11/17 Lexiscan MPI stress test is negative for ischemia. Pt is currently at moderate cardiovascular risk for PD catheter placement. There are no immediate cardiac contraindications to proceeding with PD catheter placement at this time. Winifred GHOSH NP / DR. ROJO
--- NOTE | 2017-01-11 14:56 | Progress Note ---
Assessment and Plan Patient consented and boarded for PD cath insertion sometime this week if possible. Cardiac clearance finished and no ischemia found on stress test. Will proceed with PD cath Subjective Date of service: 01/11/17 Patient Reports: Positive: no new complaints Objective Vital Signs - 12hr 01/11/17 01/11/17 01/11/17 11:10 11:56 11:57 Pulse Rate 74 83 92 H Blood Pressure 186/91 194/75 145/72 01/11/17 01/11/17 01/11/17 11:58 11:59 12:00 Pulse Rate 93 H 88 86 Blood Pressure 161/76 168/74 164/77 - General physical appearance well developed, well nourished, no pain - Respiratory normal expansion, normal respiratory effort - Abdomen soft, not tender, not guarding, not rigid - Labs 01/10/17 05:05 01/11/17 04:53 Diabetes panel 01/11/17 Range/Units 04:53 Carbon Dioxide 26 (22-30) mmol/L BUN 51 H (9-20) mg/dL Creatinine 7.3 H (0.8-1.5) mg/dL Glucose 120 H (75-100) mg/dL Calcium 8.7 (8.4-10.2) mg/dL Calcium panel 01/11/17 Range/Units 04:53 Calcium 8.7 (8.4-10.2) mg/dL Pituitary panel 01/11/17 Range/Units 04:53 Carbon Dioxide 26 (22-30) mmol/L BUN 51 H (9-20) mg/dL Creatinine 7.3 H (0.8-1.5) mg/dL Glucose 120 H (75-100) mg/dL Calcium 8.7 (8.4-10.2) mg/dL Adrenal panel 01/11/17 Range/Units 04:53 Carbon Dioxide 26 (22-30) mmol/L BUN 51 H (9-20) mg/dL Creatinine 7.3 H (0.8-1.5) mg/dL Glucose 120 H (75-100) mg/dL Calcium 8.7 (8.4-10.2) mg/dL
--- NOTE | 2017-01-11 16:35 | Progress Note ---
Assessment and Plan Assessment and plan: --Hypertensive urgency; at the time of admission Blood pressure moderate control controlled Continue current antihypertensive medications . --Chronic kidney disease stage V; secondary to hypertensive nephrosclerosis, requiring dialysis Patient opted for peritoneal dialysis, PD catheter placement planned, Hemodialysis in the intervening period --Anemia of chronic disease; Procrit during dialysis, closely monitor --Metabolic encephalopathy; altered level of consciousness; reported by the sisters, patient underwent MRI study Pending report closely monitor, --Acute systolic congestive heart failure 45-50% ejection fraction --Urinary incontinence[reported by the sister is at the bedside], we'll closely monitor Consider urology evaluation if needed --Type 2 diabetes mellitus; well controlled, Accu-Chek sliding scale coverage and ADA diet, Lantus insulin --Dysphagia; reported by the sisters, we will get swallow evaluation, if abnormal consider GI evaluation if needed --DVT prophylaxis; heparin DC planning; possible discharge with home health, when medically stable. Plan of care discussed with the patient, his 2 sisters along with the case management we will order Sisters had numerous questions, answered all of them, they verbalized understanding. Patient will receive hemodialysis until peritoneal dialysis catheter is established. History Interval history: Patient seen and examined this morning medical records reviewed Patient underwent stress test to clear for paternal dialysis catheter placement Stress test is negative for reversible ischemia Surgery planning PD catheter placement Patient has no new complaints However 2 sisters at the bedside report that patient has incontinence of urine Hospitalist Physical - Constitutional Vitals: Temp Pulse Resp BP Pulse Ox 98.5 F 86 20 164/77 96 01/10/17 20:28 01/11/17 12:00 01/10/17 20:28 01/11/17 12:00 01/10/17 20:28 General appearance: Present: no acute distress, well-nourished - EENT Eyes: Present: PERRL, EOM intact - Neck Neck: Present: supple, normal ROM - Respiratory Respiratory effort: normal Respiratory: bilateral: diminished, negative: rales, rhonchi, wheezing - Cardiovascular Rhythm: regular Heart Sounds: Present: S1 & S2 - Extremities Extremities: no ischemia, pulses intact Peripheral Pulses: within normal limits - Abdominal General gastrointestinal: soft, non-tender, non-distended, normal bowel sounds - Integumentary Integumentary: Present: clear, warm - Psychiatric Psychiatric: appropriate mood/affect, cooperative - Neurologic Neurologic: CNII-XII intact, moves all extremities Results - Labs CBC & Chem 7: 01/10/17 05:05 01/11/17 04:53 Labs: Laboratory Last Values WBC 10.2 K/mm3 (4.5-11.0) 01/10/17 05:05 RBC 3.64 M/mm3 (3.65-5.03) L 01/10/17 05:05 Hgb 11.0 gm/dl (11.8-15.2) L 01/10/17 05:05 Hct 32.2 % (35.5-45.6) L 01/10/17 05:05 MCV 89 fl (84-94) 01/10/17 05:05 MCH 30 pg (28-32) 01/10/17 05:05 MCHC 34 % (32-34) 01/10/17 05:05 RDW 13.9 % (13.2-15.2) 01/10/17 05:05 Plt Count 271 K/mm3 (140-440) 01/10/17 05:05 Lymph % (Auto) 15.1 % (13.4-35.0) 01/10/17 05:05 [place] % (Auto) 10.9 % (0.0-7.3) H 01/10/17 05:05 Eos % (Auto) 1.3 % (0.0-4.3) 01/10/17 05:05 Baso % (Auto) 0.6 % (0.0-1.8) 01/10/17 05:05 Lymph # 1.5 K/mm3 (1.2-5.4) 01/10/17 05:05 [place] # 1.1 K/mm3 (0.0-0.8) H 01/10/17 05:05 Eos # 0.1 K/mm3 (0.0-0.4) 01/10/17 05:05 Baso # 0.1 K/mm3 (0.0-0.1) 01/10/17 05:05 Seg Neutrophils % 72.1 % (40.0-70.0) H 01/10/17 05:05 Seg Neutrophils # 7.4 K/mm3 (1.8-7.7) 01/10/17 05:05 D-Dimer 6567.37 ng/mlDDU (0-234) H 01/05/17 02:35 Sodium 140 mmol/L (137-145) 01/10/17 05:05 Potassium 4.1 mmol/L (3.6-5.0) 01/10/17 05:05 Chloride 98.6 mmol/L (98-107) 01/10/17 05:05 Carbon Dioxide 26 mmol/L (22-30) 01/11/17 04:53 Anion Gap 22 mmol/L 01/10/17 05:05 BUN 51 mg/dL (9-20) H 01/11/17 04:53 Creatinine 7.3 mg/dL (0.8-1.5) H 01/11/17 04:53 Estimated GFR 8 ml/min 01/11/17 04:53 BUN/Creatinine Ratio 7 % 01/11/17 04:53 Glucose 120 mg/dL (75-100) H 01/11/17 04:53 POC Glucose 143 (70-105) H 01/10/17 21:58 Hemoglobin A1c 8.0 % (4-6) H 01/06/17 06:00 Calcium 8.7 mg/dL (8.4-10.2) 01/11/17 04:53 Phosphorus 4.80 mg/dL (2.5-4.5) H 01/08/17 04:14 Magnesium 2.00 mg/dL (1.7-2.3) 01/09/17 16:12 Total Bilirubin 0.30 mg/dL (0.1-1.2) 01/09/17 16:12 AST 18 units/L (5-40) 01/09/17 16:12 ALT 11 units/L (7-56) 01/09/17 16:12 Alkaline Phosphatase 48 units/L (35-129) 01/09/17 16:12 Total Creatine Kinase 76 units/L (55-170) 01/11/17 04:53 CK-MB (CK-2) 2.0 ng/mL (0.0-4.0) 01/11/17 04:53 CK-MB (CK-2) Rel Index 2.6 (0-4) 01/11/17 04:53 Troponin T 0.119 ng/mL (0.00-0.029) H* 01/11/17 04:53 NT-Pro-B Natriuret Pep 4126 pg/mL (0-450) H 01/05/17 02:35 Total Protein 6.2 g/dL (6.3-8.2) L 01/09/17 16:12 Albumin 3.3 g/dL (3.9-5) L 01/09/17 16:12 Albumin/Globulin Ratio 1.1 % 01/09/17 16:12 Triglycerides 120 mg/dL (2-149) 01/04/17 23:30 Cholesterol 196 mg/dL (50-199) 01/04/17 23:30 LDL Cholesterol Direct 112 mg/dL (50-130) 01/04/17 23:30 HDL Cholesterol 60 mg/dL (40-59) H 01/04/17 23:30 Cholesterol/HDL Ratio 3.26 % 01/04/17 23:30 PTH Intact 195.6 pg/mL (15-65) H 01/08/17 04:14 Urine Color Yellow (Yellow) 01/06/17 19:20 Urine Turbidity Clear (Clear) 01/06/17 19:20 Urine pH 7.0 (5.0-7.0) 01/06/17 19:20 Ur Specific [place] 1.012 (1.003-1.030) 01/06/17 19:20 Urine Protein >500 mg/dL (Negative) 01/06/17 19:20 Urine Glucose (UA) 50 mg/dL (Negative) 01/06/17 19:20 Urine Ketones Neg mg/dL (Negative) 01/06/17 19:20 Urine Blood Neg (Negative) 01/06/17 19:20 Urine Nitrite Neg (Negative) 01/06/17 19:20 Urine Bilirubin Neg (Negative) 01/06/17 19:20 Urine Urobilinogen < 2.0 mg/dL (<2.0) 01/06/17 19:20 Ur Leukocyte Esterase Neg (Negative) 01/06/17 19:20 Urine WBC (Auto) 1.0 /HPF (0.0-6.0) 01/06/17 19:20 Urine RBC (Auto) 1.0 /HPF (0.0-6.0) 01/06/17 19:20 U Epithel Cells (Auto) < 1.0 /HPF (0-13.0) 01/06/17 19:20 Urine Mucus Few /HPF 01/06/17 19:20 Urine Eosinophils None seen (None Seen) 01/05/17 20:53 Urine Creatinine 112.9 mg/dL (0.1-20.0) H 01/05/17 20:53 Urine Sodium 54 mmol/L 01/05/17 20:53 Urine Total Protein 248 mg/dL (5-11.8) H 01/05/17 20:53 Proteinase 3 (PR3) Ab <1.0 AI (<1.0) 01/07/17 11:49 Myeloperoxidase Ab <1.0 AI (<1.0) 01/07/17 11:49 Glomerular Base Mem IgG <1.0 AI (<1.0) 01/07/17 11:49 Complement C3 130 mg/dL (90-180) 01/07/17 11:49 Complement C4 34 mg/dL (16-47) 01/07/17 11:49 Hepatitis A IgM Ab Non-reactive (NonReactive) 01/07/17 11:49 Hep Bs Antigen Non-reactive (Negative) 01/07/17 11:49 Hep B Core IgM Ab Non-reactive (NonReactive) 01/07/17 11:49 Hepatitis C Antibody Non-reactive (NonReactive) 01/07/17 11:49
[2017-01-11] MEDS ORDERED: NACL 0.9 (PRIMING MACHINE ONLY DIALYSIS) MC ONE (16:51)
[2017-01-11] MEDS: APRESOLINE IV PRN (17:21)
--- NOTE | 2017-01-11 20:00 | Magnetic Resonance Report ---
FINAL REPORT EXAM: MR BRAIN WO CON HISTORY: Altered mental status TECHNIQUE: MRI brain without contrast PRIORS: None. FINDINGS: Multiple areas of signal abnormality are present in the supratentorial white. Seen centrally within the deep white matter there are multiple rounded slightly irregular foci demonstrating increased T2 signal best appreciated on FLAIR sequence. The largest seen is adjacent to the left trigone measuring 1.1 centimeters. These have a largely pericallosal distribution although there are some small scattered periventricular and superior centrum semiovale and frontal hyperintensities. Majority of these demonstrate corresponding restriction on diffusion sequences. There is also a small hyperintensity seen within the left fercho without corresponding acute diffusion restriction There is acute diffusion restriction corresponding to T2 hyperintensities cerebellum is unremarkable No evidence for acute intra or extra-axial hemorrhage. Ventricles and sulci are within normal limits. Vascular flow voids appear unremarkable. IMPRESSION: Multiple white matter signal hyperintensities Aleyda broach displayed acute diffusion restriction. These are bilateral and the pattern is most suggestive of multiple sclerosis plaques with areas of active plaque present. Ischemic change with embolic source is a differential consideration however appears less likely given the distribution.
[2017-01-11] MEDS: HEPARIN IV PRN (20:03)
[2017-01-11] MEDS: LEVEMIR SUB-Q SCH (22:11)
[2017-01-12] MEDS: APRESOLINE PO SCH ×2 (02:37→11:15)
[2017-01-12] MEDS: LASIX PO SCH (05:41)
[2017-01-12] MEDS: NOVOLOG SUB-Q SCH ×2 (08:00→15:00)
--- NOTE | 2017-01-12 09:34 | History and Physical Report ---
History of Present Illness Date of examination: 01/12/17 Date of admission: 01/05/17 08:24 Chief complaint: NEUROLOGIC CONSULTATION NOTE: CC: I am asked to see this 51 AA M for evaluation following an brain MRI result (obtained last night) of multiple CHICKEN CATCHER lesions MS vs Mult new infarcts and significance of same. HPI: Hx from chart and from two sisters of patient who called patients room while I was there, Mrs Ronda Bryan, and Naomie, both of [facility] and both flying home today to [facility] (both now at [facility]). Patient has an Hx of HTN and apparently suffered a stroke 1.5 years ago with right sided weakness that resolved completely, Rx'd at [facility] in [facility] (a small remote BG lacune is seen on MRI - images reviewed). He was admitted here late in the evening of 01/04 for SOB, BP 219/126, CHF (EF currently 45 - 50%), severe renal failure BUN 51/Creat 7.3. He was talking and responding while work up and Rx were proceeding. Pt lives here in the area. His ex- is here as is his daughter. Two of his sisters who live in [facility] flew down to see the patient and over the course of the last several days observed that he was not talking as much a usual (he is normally very loquatious) and noted soiled bed linens at one point (urine + feces). They insisted that an MRI scan be done, which was carried out some 48 hrs later with abn results as above (+see below). The sisters report as does the patient, that aside from the stoke 1.5 years ago , there is no hx whatsoever of focal neurologic sx, no visual sx, gait disturbance, focal weakness or numbness, speech difficulty, vertigo dizziness or altered awareness. Prior to this admission there is no hx whatsoever of any kind of incontinence. Aside from his SOB (the symptom that brought him to the ED) there have been no other sx. MRI brain shows multiple lesions in both cerebral hemispheres and in the left fercho that suggest MS. Forte's fingers are seen in a periventricular dist ( seen best on the FLAIR images), and there are multiple small DWI positive lesions that could be small new (within the last month) infarcts vs new active MS lesions). 2D Echo shows no sig valvular lesions, no LAE, no clots ROS: as above. No hx recent fever, sweats, chills, rashes, abd or chest pain, contip, diarrhea, red or black stools. an 11 point ROS is negative. FH/SH - not re-reviewed. 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 MEDS/ALLERGIES - see chart EXAM: VS as recorded. Patient is hiccoughing. HEENT - nl NECK - supple, no bruits Cor - no m, rubs ABd - bs nl, no tenderness Extrem - no trauma, no edema NEURO EXAM: MS - alert, oriented x 3, speech is sparse but fluent and clear and without littoral or verbal paraphasic errors. He volunteers no speech but can answer questions accurately, follows all commands quickly and accurately, repeats well , no finger agnosia, no confusion on crossed body commands. CN 2-1 - nl, full EOM, no nystagmus, pupils both 4 mm diam and react to bright light stim MOT - nl strength all 4 extrem prox and distally SENS - denies loss to touch all 4 extrem CEREB - fnf nl, done quickly and well DTS's - 1+ an symmetric prox and distally in UE and LE, great toes downgoing bilterally to plantar stim GAIT - not tested DX IMP: 1. Disinclined to talk assoc with SOB, exhaustion. He is not aphasic. His mental status is normal. 2. Singultus secondary to his renal failure BUN 51, Creat 7.3 3. Abnormal MRI with incidentally discovered multiple lesions, none of which explain any of his sx (SOB, singultus, disinclination to talk). 4. S/P remote left BG lacunar infarct 1.5 yrs ago, secondary to his uncontrolled HTN, which we can see on MRI, with sx fully resolved. 5. Multiple other dxs as summarized above including severe HTN with LVH, severe KD RECC: 1. As discussed with Dr. Mejia, we will get a CTA of the neck (prior to dialysis) re work up of MRI lesions. Could also do MRA without contrast or with (prior to dialysis). 2. MRI C- T- LS- spine looking for more ?MS lesions as part of MS workup 3. I relayed patient's sisters wishes to have him transferred to a [facility] hospital where they can look after him during his workup and afterward ..to Dr. Mejia, Dr Castellanos, and to porter sample case. Pt is currently being Rx'd for life threatening illnesses. 4. Go from there. Migue Cummings MD Past History Past Medical History: heart failure, hypertension Past Surgical History: No surgical history Social history: denies: smoking, alcohol abuse Family history: CAD, hypertension Medications and Allergies Allergies Allergy/AdvReac Type Severity Reaction Status Date / Time shellfish derived Allergy Anaphylaxis Verified 01/04/17 22:27 Home Medications Medication Instructions Recorded Confirmed Last Taken Type No Known Home Medications [No 01/05/17 01/05/17 Unknown History Reported Home Medications] Active Meds: Active Medications Acetaminophen (Tylenol) 650 mg PO Q4H PRN PRN Reason: Pain MILD(1-3)/Fever >100.5/SANTOS Last Admin: 01/06/17 17:47 Dose: 650 mg Atorvastatin Calcium (Lipitor) 40 mg PO QHS [facility] Last Admin: 01/11/17 22:10 Dose: 40 mg Azithromycin (Zithromax) 500 mg PO QDAY [facility] Last Admin: 01/11/17 09:40 Dose: Not Given Bisacodyl (Dulcolax) 10 mg IN QDAY PRN PRN Reason: Constipation unrelieved by MOM Carvedilol (Coreg) 25 mg PO BID [facility] Last Admin: 01/11/17 22:10 Dose: 25 mg Dextrose (D50w (25gm) Vial) 25 gm IV PRN PRN PRN Reason: HYPOGLYCEMIA Enoxaparin Sodium (Lovenox) 30 mg SUB-Q QDAY [facility] Last Admin: 01/11/17 11:30 Dose: Not Given Epoetin Aaron (Epogen) 10,000 unit IV AMOL PRN PRN Reason: hemodialysis Furosemide (Lasix) 40 mg PO 0600,1800 [facility] Last Admin: 01/12/17 05:41 Dose: 40 mg Heparin Sodium (Porcine) (Heparin) 5,000 unit IV AMOL PRN PRN Reason: dwells heparin Last Admin: 01/11/17 20:03 Dose: 5,000 unit Hydralazine HCl (Apresoline) 10 mg IV Q4H PRN PRN Reason: SBP>160 Last Admin: 01/11/17 17:21 Dose: 10 mg Hydralazine HCl (Apresoline) 100 mg PO Q8H [facility] Last Admin: 01/12/17 02:37 Dose: 100 mg Sodium Chloride (Nacl 0.9%) 100 mls @ 999 mls/hr IV AMOL PRN PRN Reason: Hypotension Insulin Aspart (Novolog) 0 units SUB-Q ACHS [facility] PRN Reason: Protocol Last Admin: 01/11/17 22:12 Dose: 3 units Insulin Detemir (Levemir) 10 units SUB-Q QHS [facility] Last Admin: 01/11/17 22:11 Dose: 10 units Isosorbide Mononitrate (Imdur) 60 mg PO QDAY [facility] Last Admin: 01/11/17 09:25 Dose: Not Given Lisinopril (Zestril) 20 mg PO QDAY [facility] Last Admin: 01/11/17 09:35 Dose: Not Given Ondansetron HCl (Zofran) 4 mg IV Q8H PRN PRN Reason: Nausea And Vomiting Last Admin: 01/09/17 12:12 Dose: 4 mg Physical Examination - Vital Signs Vital Signs: Vital Signs Pulse Resp 98 H 24 01/04/17 22:21 01/04/17 22:21 Results - Laboratory Findings CBC and BMP: 01/10/17 05:05 01/11/17 04:53 Abnormal Lab Findings: Abnormal Labs 01/05/17 01/05/17 01/05/17 17:34 20:09 20:33 RBC Hgb Hct Lymph % (Auto) Foster % (Auto) Lymph # Foster # Seg Neutrophils % Seg Neutrophils # Sodium Chloride BUN Creatinine Glucose POC Glucose 199 H 190 H Hemoglobin A1c Phosphorus Troponin T 0.090 H Total Protein Albumin PTH Intact Urine Creatinine Urine Total Protein 01/05/17 01/06/17 01/06/17 20:53 05:47 05:47 RBC 3.44 L Hgb 10.4 L Hct 30.3 L Lymph % (Auto) 11.7 L Foster % (Auto) 9.1 H Lymph # 1.0 L Foster # Seg Neutrophils % 78.3 H Seg Neutrophils # Sodium Chloride BUN 46 H Creatinine 5.7 H Glucose 129 H POC Glucose Hemoglobin A1c Phosphorus Troponin T Total Protein Albumin PTH Intact Urine Creatinine 112.9 H Urine Total Protein 248 H 01/06/17 01/06/17 01/06/17 06:00 11:49 16:56 RBC Hgb Hct Lymph % (Auto) Foster % (Auto) Lymph # Foster # Seg Neutrophils % Seg Neutrophils # Sodium Chloride BUN Creatinine Glucose POC Glucose 165 H 149 H Hemoglobin A1c 8.0 H Phosphorus Troponin T Total Protein Albumin PTH Intact Urine Creatinine Urine Total Protein 01/06/17 01/07/17 01/07/17 21:41 06:00 06:00 RBC 3.59 L Hgb 10.7 L Hct 31.9 L Lymph % (Auto) Foster % (Auto) Lymph # Foster # Seg Neutrophils % Seg Neutrophils # Sodium Chloride BUN 50 H Creatinine 6.2 H Glucose 139 H POC Glucose 109 H Hemoglobin A1c Phosphorus Troponin T Total Protein Albumin PTH Intact Urine Creatinine Urine Total Protein 01/07/17 01/07/17 01/07/17 08:01 12:11 21:07 RBC Hgb Hct Lymph % (Auto) Foster % (Auto) Lymph # Foster # Seg Neutrophils % Seg Neutrophils # Sodium Chloride BUN Creatinine Glucose POC Glucose 130 H 170 H 172 H Hemoglobin A1c Phosphorus Troponin T Total Protein Albumin PTH Intact Urine Creatinine Urine Total Protein 01/08/17 01/08/17 01/08/17 04:14 04:14 04:14 RBC 3.59 L Hgb 10.9 L Hct 31.7 L Lymph % (Auto) 9.4 L Foster % (Auto) 11.7 H Lymph # 1.0 L Foster # 1.2 H Seg Neutrophils % 78.3 H Seg Neutrophils # 7.9 H Sodium 136 L Chloride 96.3 L BUN 37 H Creatinine 5.7 H Glucose 164 H POC Glucose Hemoglobin A1c Phosphorus 4.80 H Troponin T Total Protein Albumin PTH Intact Urine Creatinine Urine Total Protein 01/08/17 01/08/17 01/08/17 04:14 07:40 12:22 RBC Hgb Hct Lymph % (Auto) Foster % (Auto) Lymph # Foster # Seg Neutrophils % Seg Neutrophils # Sodium Chloride BUN Creatinine Glucose POC Glucose 168 H 234 H Hemoglobin A1c Phosphorus Troponin T Total Protein Albumin PTH Intact 195.6 H Urine Creatinine Urine Total Protein 01/08/17 01/08/17 01/09/17 16:29 22:20 08:11 RBC Hgb Hct Lymph % (Auto) Foster % (Auto) Lymph # Foster # Seg Neutrophils % Seg Neutrophils # Sodium Chloride BUN Creatinine Glucose POC Glucose 119 H 162 H 143 H Hemoglobin A1c Phosphorus Troponin T Total Protein Albumin PTH Intact Urine Creatinine Urine Total Protein 01/09/17 01/09/17 01/09/17 12:10 16:12 17:20 RBC Hgb Hct Lymph % (Auto) Foster % (Auto) Lymph # Foster # Seg Neutrophils % Seg Neutrophils # Sodium Chloride BUN 37 H Creatinine 6.1 H Glucose 131 H POC Glucose 234 H 122 H Hemoglobin A1c Phosphorus Troponin T Total Protein 6.2 L Albumin 3.3 L PTH Intact Urine Creatinine Urine Total Protein 01/09/17 01/10/17 01/10/17 20:48 05:05 05:05 RBC 3.64 L Hgb 11.0 L Hct 32.2 L Lymph % (Auto) Foster % (Auto) 10.9 H Lymph # Foster # 1.1 H Seg Neutrophils % 72.1 H Seg Neutrophils # Sodium Chloride BUN 44 H Creatinine 7.1 H Glucose 114 H POC Glucose 135 H Hemoglobin A1c Phosphorus Troponin T Total Protein Albumin PTH Intact Urine Creatinine Urine Total Protein 01/10/17 01/10/17 01/10/17 08:28 13:34 17:35 RBC Hgb Hct Lymph % (Auto) Foster % (Auto) Lymph # Foster # Seg Neutrophils % Seg Neutrophils # Sodium Chloride BUN Creatinine Glucose POC Glucose 131 H 227 H 142 H Hemoglobin A1c Phosphorus Troponin T Total Protein Albumin PTH Intact Urine Creatinine Urine Total Protein 01/10/17 01/11/17 01/11/17 21:58 04:53 04:53 RBC Hgb Hct Lymph % (Auto) Foster % (Auto) Lymph # Foster # Seg Neutrophils % Seg Neutrophils # Sodium Chloride BUN 51 H Creatinine 7.3 H Glucose 120 H POC Glucose 143 H Hemoglobin A1c Phosphorus Troponin T 0.119 H* Total Protein Albumin PTH Intact Urine Creatinine Urine Total Protein 01/11/17 01/12/17 21:53 08:01 RBC Hgb Hct Lymph % (Auto) Foster % (Auto) Lymph # Foster # Seg Neutrophils % Seg Neutrophils # Sodium Chloride BUN Creatinine Glucose POC Glucose 207 H 111 H Hemoglobin A1c Phosphorus Troponin T Total Protein Albumin PTH Intact Urine Creatinine Urine Total Protein
--- NOTE | 2017-01-12 10:33 | Progress Note ---
Assessment and Plan Assessment: Acute diastolic heart failure - EF 45-50%; lexiscan MPI stress test negative for ischemia Moderate to severe LVH - advanced hypertensive heart disease Malignant recalcitrant HTN - improving DM AMY on CKD - requiring dialysis Elevated DDimer - V/Q scan with low probability for PE Dyslipidemia Plan: Lexiscan MPI stress test yesterday negative for ischemia. Pt for PD catheter placement. Pt is currently at moderate cardiovascular risk for PD catheter placement. There are no immediate cardiac contraindications to proceeding with PD catheter placement at this time. Currently stable cardiac status. Nothing further to add from cardiac perspective at this time. Will see PRN. Recommend follow up in our office with Shelbi Gonzales NP, within 3-5 business days of hospital discharge ([phone]). Assessment and plan reviewed with pt at bedside. The patient has been seen in conjunction with Dr. Preciado who agrees with the assessment and plan of care. Subjective Date of service: 01/12/17 Principal diagnosis: ESRD PNA CHF Interval history: No current cardiac complaints. Objective Last Vital Signs Temp 98.6 F 01/12/17 07:54 Pulse 77 01/12/17 07:55 Resp 18 01/12/17 07:54 BP 111/55 01/12/17 07:54 Pulse Ox 96 01/12/17 07:55 - Physical Examination General: Appears Well, No Apparent Distress HEENT: Positive: PERRL, Normocephaly, Mucus Membranes Moist Neck: Positive: neck supple Cardiac: Positive: Reg Rate and Rhythm, S1/S2 Lungs: Positive: clear to auscultation Neuro: Positive: Grossly Intact, Cranial Nerve 2-12 Intact Abdomen: Positive: Unremarkable, Soft, Active Bowel Sounds. Negative: Tender Skin: Positive: Clear. Negative: Rash Musculoskeletal: No Pain, Normal Range of Motion Extremities: Absent: edema - Imaging and Cardiology EKG: report reviewed, image reviewed Echo: report reviewed - EKG Sinus rhythms and dysrhythmias: sinus rhythm Chamber hypertrophy or enlargement: left ventricular hypertro Repolarization changes or abnormalities: repolarization abn secondary to ventricular hypertrophy
[2017-01-12] MEDS: IMDUR PO SCH (11:15)
[2017-01-12] MEDS: ZITHROMAX PO SCH (11:15)
[2017-01-12] MEDS: COREG PO SCH ×2 (11:15→23:52)
[2017-01-12] MEDS: LOVENOX SUB-Q SCH (11:15)
[2017-01-12] MEDS: ZESTRIL PO SCH (11:15)
--- NOTE | 2017-01-12 11:22 | Progress Note ---
Assessment and Plan - Patient Problems (1) Chronic kidney disease, stage V Current Visit: Yes Status: Acute Plan to address problem: Chronic kidney disease secondary to hypertensive nephrosclerosis. It appears Patient has chronic kidney disease which has progressed to end-stage renal disease. Kidney indices improved with dialysis. Plan is to do peritoneal dialysis as an outpatient. Patient has been cleared by carroting machine offbearer for PD catheter placement. Again discussed with the patient about importance of doing dialysis every day. Discussed importance of compliance with this regimen. Patient states he will be compliant and wants to do peritoneal dialysis. (2) Anemia in chronic kidney disease Current Visit: Yes Status: Acute Qualifiers: Chronic kidney disease stage: C Plan to address problem: Continue Erythropoetin on dialysis. Follow-up hemoglobin (3) Acute heart failure Current Visit: Yes Status: Acute Qualifiers: Heart failure type: H Plan to address problem: Combined systolic and diastolic heart failure. Patient with inadequate response to diuretics. Improved volume status with dialysis. Stress test planned for this morning (4) Hypertensive emergency Current Visit: Yes Status: Acute Plan to address problem: Blood pressure has improved. Continue current medications. Continue other management (5) Type 2 diabetes mellitus with diabetic chronic kidney disease Current Visit: Yes Status: Chronic Qualifiers: Diabetes mellitus manager long term care insulin use: with assisted use Chronic kidney disease stage: stage 5, not on chronic dialysis Qualified Code(s): E11.22 - Type 2 diabetes mellitus with diabetic chronic kidney disease; N18.5 - Chronic kidney disease, stage 5; N18.5 - Chronic kidney disease, stage 5; N18.5 - Chronic kidney disease, stage 5; N18.5 - Chronic kidney disease, stage 5; Z79.4 - terminologist (current) use of insulin; Z79.4 - terminologist (current) use of insulin ; Z79.4 - prison (current) use of insulin; Z79.4 - terminologist (current) use of insulin Plan to address problem: Blood sugar management by primary attending (6) Altered mental state Current Visit: Yes Status: Acute Qualifiers: Altered mental status type: A Coma depth: C Coma timing: C Plan to address problem: Resolved. Mental status back to baseline. Patient cannot get MRI with gadolinium due to the risk of NSF. He can get a CT with contrast and get Dialysis after the procedure Subjective Date of service: 01/12/17 Principal diagnosis: ESRD PNA CHF Interval history: Patient seen lying in bed. He has no complaints this morning. He is awake and oriented 3. He denies any nausea or vomiting. No pain. No shortness of breath. Objective - Exam Narrative Exam: Middle aged -Honduran male lying in bed in no acute distress HEENT: NCAT, pink oral mucous membrane Neck: Supple, no venous distention CVS: S1S2 RRR with no murmur, rub or gallop Chest: Clear to auscultation Abdomen: Protuberant, soft, nontender, no organomegaly, bowel sounds are present Extremities: No edema Neuro: Nonverbal, not following commands. No focal deficits - Vital Signs Vital signs: Vital Signs - 12hr 01/12/17 01/12/17 01/12/17 00:44 04:12 07:54 Temperature 98.8 F 98.9 F 98.6 F Pulse Rate 77 79 84 Respiratory 18 18 18 Rate Blood Pressure 112/63 113/62 111/55 O2 Sat by Pulse 100 97 95 Oximetry 01/12/17 01/12/17 07:55 10:00 Temperature Pulse Rate 77 73 Respiratory Rate Blood Pressure O2 Sat by Pulse 96 Oximetry - Lab 01/10/17 05:05 01/11/17 04:53 Most recent lab results Calcium 8.7 mg/dL (8.4-10.2) 01/11/17 04:53 Phosphorus 4.80 mg/dL (2.5-4.5) H 01/08/17 04:14 Magnesium 2.00 mg/dL (1.7-2.3) 01/09/17 16:12 Urine Creatinine 112.9 mg/dL (0.1-20.0) H 01/05/17 20:53 Urine Sodium 54 mmol/L 01/05/17 20:53 Urine Total Protein 248 mg/dL (5-11.8) H 01/05/17 20:53
--- NOTE | 2017-01-12 13:29 | Progress Note ---
Assessment and Plan We had him on the OR schedule for 01/14/17 for a PD catheter placement. The family has decided they want him stabilized for transfer to [place]. They do not want any more procedures or care done at [facility] as they say they are unhappy with the quality of the care. I told them we will sign off but remain available to put restart the scheduling process for a PD catheter if they change their mind. Please call if we can be of further assistance. Subjective Date of service: 01/12/17 Patient Reports: Positive: no new complaints Objective Vital Signs - 12hr 01/12/17 01/12/17 01/12/17 04:12 07:54 07:55 Temperature 98.9 F 98.6 F Pulse Rate 79 84 77 Respiratory 18 18 Rate Blood Pressure 113/62 111/55 Blood Pressure [Left] O2 Sat by Pulse 97 95 96 Oximetry 01/12/17 01/12/17 10:00 12:32 Temperature 99.6 F Pulse Rate 73 82 Respiratory Rate Blood Pressure Blood Pressure 149/86 [Left] O2 Sat by Pulse Oximetry - Abdomen soft, not tender, bowel sounds normal, not distended - Labs 01/10/17 05:05 01/11/17 04:53
--- NOTE | 2017-01-12 14:23 | Progress Note ---
Assessment and Plan Assessment and plan: --Possible multiple sclerosis/possible embolic CVA per MRI report; discussed with neurology, recommended MRI C-spine, thoracic spine, lumbar spine with contrast prior to hemodialysis, however nephrology did not feel comfortable in view of end-stage renal disease, the above studies were canceled, CTA neck prior to hemodialysis was requested to evaluate the abnormal brain lesions, management per neurology --Altered level of consciousness/minimal communication; patient is alert awake oriented 3 , speaks fluently probably depression, consider psych evaluation if needed --Difficulty swallowing/poor oral intake reported by the sisters; diet as tolerated pending speech and swallow evaluation consider GI evaluation if needed --Hypertensive urgency; at the time of admission Blood pressure moderate control Continue current antihypertensive medications . --Chronic kidney disease stage V; secondary to hypertensive nephrosclerosis, requiring dialysis Patient opted for peritoneal dialysis, PD catheter placement , Hemodialysis in the intervening period --Anemia of chronic disease; Procrit during dialysis, closely monitor --Metabolic encephalopathy; altered level of consciousness; reported by the sisters, patient is alert awake oriented 3 With clear speech, but minimally communicative --Acute systolic congestive heart failure 45-50% ejection fraction, continue current management --Urinary incontinence[reported by the sister is at the bedside], probably related to the PARTS BACK COUNTER MAN lesions, advised diapers, and closely monitor the degree of i incontinence, and consult GI/urology as needed --Type 2 diabetes mellitus; well controlled, Accu-Chek sliding scale coverage and ADA diet, Lantus insulin --DVT prophylaxis; heparin. --DC planning per case management: Possible transfer to [place] as requested by the sisters I called Mrs. Ronda Bryan who left the [place] by phone and discussed the findings of MRI, recommendations by neurologist, patient's condition, treatment plan in detail, answered all her questions, she verbalized understanding She was inquiring about possible transfer to [place] , and reported that they' ll be visiting [facility] and making plans to take him to [place] next week. I discussed the plans with case management Christie, who is aware of the sisters requests. I will sign off to the covering hospitalist tomorrow. I spent 45 minutes coordinating the patient's care today History Interval history: Patient seen and evaluated in his room this morning,Medical records reviewed No new events reported by the nursing staff Patient is very calm and minimally communicative, but responds appropriately Probably because of the sisters leaving for [place]. MRI report revealed; bilateral multiple white matter signal hyperintensities, most suggestive of multiple sclerosis plaques With areas of active plaque,Ischemic changes with embolic source is the differential consideration These findings are discussed with the neurologist Dr. Cummings and requested a consultation. Hospitalist Physical - Constitutional Vitals: Temp Pulse Resp BP Pulse Ox 99.6 F 82 18 149/86 96 01/12/17 12:32 01/12/17 12:32 01/12/17 07:54 01/12/17 12:32 01/12/17 07:55 General appearance: Present: no acute distress, well-nourished, other (alert awake oriented 3, speaks very little on encouraging) - EENT Eyes: Present: PERRL, EOM intact ENT: hearing intact - Neck Neck: Present: supple, normal ROM - Respiratory Respiratory effort: normal Respiratory: negative: rales, rhonchi, wheezing - Cardiovascular Rhythm: regular Heart Sounds: Present: S1 & S2 - Extremities Extremities: no ischemia, No edema, normal temperature - Abdominal General gastrointestinal: soft, non-tender, non-distended, normal bowel sounds - Integumentary Integumentary: Present: clear, warm - Psychiatric Psychiatric: appropriate mood/affect, cooperative - Neurologic Neurologic: CNII-XII intact, moves all extremities Results - Labs CBC & Chem 7: 01/10/17 05:05 01/11/17 04:53 Labs: Laboratory Last Values WBC 10.2 K/mm3 (4.5-11.0) 01/10/17 05:05 RBC 3.64 M/mm3 (3.65-5.03) L 01/10/17 05:05 Hgb 11.0 gm/dl (11.8-15.2) L 01/10/17 05:05 Hct 32.2 % (35.5-45.6) L 01/10/17 05:05 MCV 89 fl (84-94) 01/10/17 05:05 MCH 30 pg (28-32) 01/10/17 05:05 MCHC 34 % (32-34) 01/10/17 05:05 RDW 13.9 % (13.2-15.2) 01/10/17 05:05 Plt Count 271 K/mm3 (140-440) 01/10/17 05:05 Lymph % (Auto) 15.1 % (13.4-35.0) 01/10/17 05:05 [place] % (Auto) 10.9 % (0.0-7.3) H 01/10/17 05:05 Eos % (Auto) 1.3 % (0.0-4.3) 01/10/17 05:05 Baso % (Auto) 0.6 % (0.0-1.8) 01/10/17 05:05 Lymph # 1.5 K/mm3 (1.2-5.4) 01/10/17 05:05 [place] # 1.1 K/mm3 (0.0-0.8) H 01/10/17 05:05 Eos # 0.1 K/mm3 (0.0-0.4) 01/10/17 05:05 Baso # 0.1 K/mm3 (0.0-0.1) 01/10/17 05:05 Seg Neutrophils % 72.1 % (40.0-70.0) H 01/10/17 05:05 Seg Neutrophils # 7.4 K/mm3 (1.8-7.7) 01/10/17 05:05 D-Dimer 6567.37 ng/mlDDU (0-234) H 01/05/17 02:35 Sodium 140 mmol/L (137-145) 01/10/17 05:05 Potassium 4.1 mmol/L (3.6-5.0) 01/10/17 05:05 Chloride 98.6 mmol/L (98-107) 01/10/17 05:05 Carbon Dioxide 26 mmol/L (22-30) 01/11/17 04:53 Anion Gap 22 mmol/L 01/10/17 05:05 BUN 51 mg/dL (9-20) H 01/11/17 04:53 Creatinine 7.3 mg/dL (0.8-1.5) H 01/11/17 04:53 Estimated GFR 8 ml/min 01/11/17 04:53 BUN/Creatinine Ratio 7 % 01/11/17 04:53 Glucose 120 mg/dL (75-100) H 01/11/17 04:53 POC Glucose 115 (70-105) H 01/12/17 11:48 Hemoglobin A1c 8.0 % (4-6) H 01/06/17 06:00 Calcium 8.7 mg/dL (8.4-10.2) 01/11/17 04:53 Phosphorus 4.80 mg/dL (2.5-4.5) H 01/08/17 04:14 Magnesium 2.00 mg/dL (1.7-2.3) 01/09/17 16:12 Total Bilirubin 0.30 mg/dL (0.1-1.2) 01/09/17 16:12 AST 18 units/L (5-40) 01/09/17 16:12 ALT 11 units/L (7-56) 01/09/17 16:12 Alkaline Phosphatase 48 units/L (35-129) 01/09/17 16:12 Total Creatine Kinase 76 units/L (55-170) 01/11/17 04:53 CK-MB (CK-2) 2.0 ng/mL (0.0-4.0) 01/11/17 04:53 CK-MB (CK-2) Rel Index 2.6 (0-4) 01/11/17 04:53 Troponin T 0.119 ng/mL (0.00-0.029) H* 01/11/17 04:53 NT-Pro-B Natriuret Pep 4126 pg/mL (0-450) H 01/05/17 02:35 Total Protein 6.2 g/dL (6.3-8.2) L 01/09/17 16:12 Albumin 3.3 g/dL (3.9-5) L 01/09/17 16:12 Albumin/Globulin Ratio 1.1 % 01/09/17 16:12 Triglycerides 120 mg/dL (2-149) 01/04/17 23:30 Cholesterol 196 mg/dL (50-199) 01/04/17 23:30 LDL Cholesterol Direct 112 mg/dL (50-130) 01/04/17 23:30 HDL Cholesterol 60 mg/dL (40-59) H 01/04/17 23:30 Cholesterol/HDL Ratio 3.26 % 01/04/17 23:30 PTH Intact 195.6 pg/mL (15-65) H 01/08/17 04:14 Urine Color Yellow (Yellow) 01/06/17 19:20 Urine Turbidity Clear (Clear) 01/06/17 19:20 Urine pH 7.0 (5.0-7.0) 01/06/17 19:20 Ur Specific [place] 1.012 (1.003-1.030) 01/06/17 19:20 Urine Protein >500 mg/dL (Negative) 01/06/17 19:20 Urine Glucose (UA) 50 mg/dL (Negative) 01/06/17 19:20 Urine Ketones Neg mg/dL (Negative) 01/06/17 19:20 Urine Blood Neg (Negative) 01/06/17 19:20 Urine Nitrite Neg (Negative) 01/06/17 19:20 Urine Bilirubin Neg (Negative) 01/06/17 19:20 Urine Urobilinogen < 2.0 mg/dL (<2.0) 01/06/17 19:20 Ur Leukocyte Esterase Neg (Negative) 01/06/17 19:20 Urine WBC (Auto) 1.0 /HPF (0.0-6.0) 01/06/17 19:20 Urine RBC (Auto) 1.0 /HPF (0.0-6.0) 01/06/17 19:20 U Epithel Cells (Auto) < 1.0 /HPF (0-13.0) 01/06/17 19:20 Urine Mucus Few /HPF 01/06/17 19:20 Urine Eosinophils None seen (None Seen) 01/05/17 20:53 Urine Creatinine 112.9 mg/dL (0.1-20.0) H 01/05/17 20:53 Urine Sodium 54 mmol/L 01/05/17 20:53 Urine Total Protein 248 mg/dL (5-11.8) H 01/05/17 20:53 HARRISON Screen Negative (Negative) 01/07/17 11:49 Proteinase 3 (PR3) Ab <1.0 AI (<1.0) 01/07/17 11:49 Myeloperoxidase Ab <1.0 AI (<1.0) 01/07/17 11:49 Glomerular Base Mem IgG <1.0 AI (<1.0) 01/07/17 11:49 Complement C3 130 mg/dL (90-180) 01/07/17 11:49 Complement C4 34 mg/dL (16-47) 01/07/17 11:49 Hepatitis A IgM Ab Non-reactive (NonReactive) 01/07/17 11:49 Hep Bs Antigen Non-reactive (Negative) 01/07/17 11:49 Hep B Core IgM Ab Non-reactive (NonReactive) 01/07/17 11:49 Hepatitis C Antibody Non-reactive (NonReactive) 01/07/17 11:49
--- NOTE | 2017-01-12 15:29 | Cat Scan Report ---
CTA NECK INDICATION: White matter hyperintensities on MRI, possible multiple sclerosis. Evaluate for embolic etiology. COMPARISON: Yesterday's MRI. FINDINGS: CTA neck performed utilizing IV contrast. Axial, sagittal, coronal and MIP reconstructions obtained. Patent visualized major arising vessels from the aortic arch, including bilateral carotids and codominant vertebral arteries. Aortic arch though not included. Mild atherosclerotic changes/calcifications at the carotid bulbs without significant stenosis. Normal imaged intracranial appearance. Right maxillary large periapical cyst, axial image 237, series 2. Small bilateral mandibular periapical cysts also possible. Multiple prominent cervical lymph nodes, approximately 1.1 x 0.7 cm right submandibular/level I as on axial image 141, series 2 while the largest level II lymph node along left jugular chain is approximately 1.8 x 1.5 cm, axial image 149 and 2 cm craniocaudal. Unremarkable thyroid. Patent airway. C4-C6 degenerative changes. Cervical spine straightening, possibly positional versus spasm. Right-sided central catheter partially imaged. Mild bilateral sphenoid sinus mucosal thickening or retention cysts inferiorly, axial image 282. CONCLUSION: No significant neck CTA abnormality with other findings, including few nonspecific prominent/mildly enlarged cervical lymph nodes and bilateral sphenoid sinus disease, as described. Please correlate. Thank you for the opportunity to participate in this patient's care.
[2017-01-12] MEDS ORDERED: NACL 0.9% 100 ML IV PRN (15:51)
[2017-01-12] MEDS ORDERED: NACL 0.9 (PRIMING MACHINE ONLY DIALYSIS) MC ONE (18:30)
[2017-01-12] MEDS: HEPARIN IV PRN (19:42)
[2017-01-13 04:03] LABS: Albumin 3.2 g/dL (3.8-4.8); Gamma Globulin 1.4 g/dL (0.8-1.7)
--- NOTE | 2017-01-13 05:06 | Treadmill Report ---
NUCLEAR STUDY READING PHYSICIAN: Kelby Jackson MD IMAGING PROTOCOL: Single isotope used. The patient received 10 mCi of Technetium 99m Tetrofosmin for resting image and 28 mCi of Technetium 99m Tetrofosmin for stress imaging. The imaging for the whole procedure was completed 30-90 minutes following the initial injection of Technetium 99m tetrofosmin. The SPECT imaging in the 180 degree arc was performed in the right anterior oblique projection. Computerized reconstruction of the images was performed for analysis. IMAGING RESULTS: Cavity is mildly dilated stress to rest. Normal distribution of radionuclide in the anterior, inferior, septal and apical regions. Mild to moderate LV dysfunction, EF 38%. The patient infused Lexiscan with no EKG changes. SUMMARY: 1. Negative Lexiscan EKG. 2. Cavity is dilated on both stress and rest mildly with normal myocardial perfusion in the anterior, inferior, septal, and apical regions. No significant ischemia noted. 3. Gated SPECT, EF 38%, clinically correlate with echocardiogram. [facility]# [id number] VIOLA/MITALI
[2017-01-13] MEDS: NOVOLOG SUB-Q SCH ×3 (08:52→17:15)
--- NOTE | 2017-01-13 08:54 | Progress Note ---
Assessment and Plan - Patient Problems (1) Chronic kidney disease, stage V Current Visit: Yes Status: Acute Plan to address problem: Chronic kidney disease secondary to hypertensive nephrosclerosis. It appears Patient has chronic kidney disease which has progressed to end-stage renal disease. Kidney indices improved with dialysis. Plan is to do peritoneal dialysis as an outpatient. Patient has been cleared by stator plate washer for PD catheter placement. Patient wants to do peritoneal dialysis but his sisters do not wanting to have any procedures done here and want to take him to [place]. I will call sister today as patient will need a permacath placed. It we'll be easier for him to transition to [place] on peritoneal dialysis also since he has no insurance it will be difficult to place him at an outpatient clinic for hemodialysis. (2) Anemia in chronic kidney disease Current Visit: Yes Status: Acute Plan to address problem: Continue Erythropoetin on dialysis. Follow-up hemoglobin (3) Acute heart failure Current Visit: Yes Status: Acute Plan to address problem: Combined systolic and diastolic heart failure. Patient with inadequate response to diuretics. Improved volume status with dialysis. (4) Hypertensive emergency Current Visit: Yes Status: Acute Plan to address problem: Blood pressure has improved. Continue current medications. Continue other management (5) Type 2 diabetes mellitus with diabetic chronic kidney disease Current Visit: Yes Status: Chronic Qualifiers: Diabetes mellitus care home insulin use: with care home use Chronic kidney disease stage: stage 5, not on chronic dialysis Qualified Code(s): E11.22 - Type 2 diabetes mellitus with diabetic chronic kidney disease; N18.5 - Chronic kidney disease, stage 5; N18.5 - Chronic kidney disease, stage 5; N18.5 - Chronic kidney disease, stage 5; N18.5 - Chronic kidney disease, stage 5; Z79.4 - intermediate (current) use of insulin; Z79.4 - intermediate (current) use of insulin ; Z79.4 - intermediate (current) use of insulin; Z79.4 - intermediate (current) use of insulin Plan to address problem: Blood sugar management by primary attending (6) Altered mental state Current Visit: Yes Status: Acute Plan to address problem: Resolved. Mental status back to baseline. Patient cannot get MRI with gadolinium due to the risk of NSF. Patient had CT with contrast yesterday and was dialyzed after. Follow up results. Neurology on board Subjective Date of service: 01/13/17 Principal diagnosis: ESRD PNA CHF Interval history: Patient seen lying in bed. He has no complaints this morning. He is awake. He denies any nausea or vomiting. No pain. No shortness of breath. He barely speak still and has to be urged to verbalize Objective - Exam Narrative Exam: Middle aged -Iranian male lying in bed in no acute distress HEENT: NCAT, pink oral mucous membrane Neck: Supple, no venous distention CVS: S1S2 RRR with no murmur, rub or gallop Chest: Clear to auscultation Abdomen: Protuberant, soft, nontender, no organomegaly, bowel sounds are present Extremities: No edema Neuro: Nonverbal, not following commands. No focal deficits - Vital Signs Vital signs: Vital Signs - 12hr 01/13/17 01/13/17 07:00 07:56 Temperature 98.6 F Pulse Rate 37 L Respiratory 19 Rate Blood Pressure 136/80 O2 Sat by Pulse 92 75 L Oximetry - Lab 01/10/17 05:05 01/11/17 04:53 Most recent lab results Calcium 8.7 mg/dL (8.4-10.2) 01/11/17 04:53 Phosphorus 4.80 mg/dL (2.5-4.5) H 01/08/17 04:14 Magnesium 2.00 mg/dL (1.7-2.3) 01/09/17 16:12 Urine Creatinine 112.9 mg/dL (0.1-20.0) H 01/05/17 20:53 Urine Sodium 54 mmol/L 01/05/17 20:53 Urine Total Protein 248 mg/dL (5-11.8) H 01/05/17 20:53
[2017-01-13 10:48] LABS: Calcium 9.3 mg/dL (8.4-10.2); Chloride 94.3 mmol/L (98-107)
[2017-01-13] MEDS: ZESTRIL PO SCH (11:00)
[2017-01-13] MEDS: IMDUR PO SCH (11:00)
[2017-01-13] MEDS: COREG PO SCH (11:00)
--- NOTE | 2017-01-13 11:24 | Magnetic Resonance Report ---
MRI CERVICAL SPINE WITHOUT CONTRAST INDICATION: Evaluate for multiple sclerosis. COMPARISON: None similar. FINDINGS: Noncontrast axial and sagittal T1 and T2-weighted MRI of the cervical spine attempted, though limited due to patient motion. Intact craniocervical articulation and normal cervicomedullary junction. No Chiari malformation. Grossly normal vertebral body stature, alignment and marrow signal. No gross cord signal abnormality. Straightening, possibly positional versus spasm. Few degenerative changes, more so from C4 inferiorly. Normal paraspinal soft tissues. On the obtained axial images: C2-C3 appears unremarkable. C3-C4 not excluded for slight right neural foraminal narrowing, axial image 26. C4-C5 and C5-C6 suggest mild disc narrowing and slight diffuse disc/osteophyte complex with ventral CSF effacement, approaching the cord. C6-C7 which demonstrate mild left facet arthropathy and possible mild left neuroforamina narrowing on axial image 13. C7-T1 may demonstrate mild diffuse disc bulge/osteophyte complex with ventral CSF effacement and approaching the cord, axial image 8. T1-T2 is unremarkable. CONCLUSION: Cervical spine straightening with mild degenerative changes at C4-C5, C5-C6 and C7-T1 noted, as detailed above. Exam otherwise limited due to motion as for detection of subtle multiple sclerosis lesions. Patient also unable to tolerate ordered thoracic or lumbar spine MRI. Thank you for the opportunity to participate in this patient's care.
[2017-01-13] MEDS ORDERED: NACL 0.9 (PRIMING MACHINE ONLY DIALYSIS) MC ONE (14:28)
--- NOTE | 2017-01-13 15:08 | Progress Note ---
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 Patient only could complete Cervical MRI as he could not lay flat. CTA head was normal and cervical MRI showed degenerative disease. Patient was dialyzed after CTA /Altered level of consciousness/minimal communication; likley due to Uremia and malignant HTN patient is now alert awake oriented 3 , speaks fluently Might have underlying depression, will do psych evaluation if no improvement /Poor oral intake - added megace and nutrition boost /Hypertensive urgency; at the time of admission Blood pressure moderate control Continue current antihypertensive medications . /Chronic kidney disease stage V; secondary to hypertensive nephrosclerosis, requiring dialysis Patient prefer for peritoneal dialysis, PD catheter placement , Hemodialysis in the intervening period /Anemia of chronic disease; - erythropoitin during dialysis, closely monitor Hb /Acute systolic congestive heart failure 45-50% ejection fraction, - continue current management /Urinary incontinence[reported by the sister is at the bedside], probably related to the SUSTAINABILITY SPECIALIST lesions, advised diapers, and closely monitor the degree of incontinence, /Type 2 diabetes mellitus; well controlled, Accu-Chek sliding scale coverage and ADA diet, long acting insulin /DVT prophylaxis; heparin. --DC planning per case management: Possible transfer to [place] as requested by the sisters. Updated Mrs. Ronda Bryan by phone and discussed the findings of MRI, recommendations by neurologist, patient's condition, treatment plan in detail, answered all her questions, she verbalized understanding Hospitalist Physical General appearance: Present: no acute distress, well-nourished, other (alert awake oriented 3) - EENT Eyes: Present: PERRL, EOM intact ENT: hearing intact - Neck Neck: Present: supple, normal ROM - Respiratory Respiratory effort: normal Respiratory: negative: rales, rhonchi, wheezing - Cardiovascular Rhythm: regular Heart Sounds: Present: S1 & S2 - Extremities Extremities: no ischemia, No edema, normal temperature - Abdominal General gastrointestinal: soft, non-tender, non-distended, normal bowel sounds - Integumentary Integumentary: Present: clear, warm - Psychiatric Psychiatric: appropriate mood/affect, cooperative - Neurologic Neurologic: CNII-XII intact, moves all extremities Subjective Date of service: 01/13/17 Principal diagnosis: ESRD PNA CHF Interval history: Patient seen and evaluated in his room this morning, Medical records reviewed No new events reported by the nursing staff Patient is communicative, responds appropriately discussed with patient's family at bedside Objective - Constitutional Vitals: Vital Signs - 12hr 01/13/17 01/13/17 01/13/17 07:00 07:56 13:40 Temperature 98.6 F 98.3 F Pulse Rate 37 L 76 Respiratory 19 16 Rate Blood Pressure 136/80 155/81 O2 Sat by Pulse 92 75 L Oximetry 01/13/17 01/13/17 01/13/17 13:45 14:00 14:15 Temperature Pulse Rate 75 80 84 Respiratory Rate Blood Pressure 141/81 146/89 156/84 O2 Sat by Pulse Oximetry 01/13/17 01/13/17 14:30 15:00 Temperature Pulse Rate 82 85 Respiratory Rate Blood Pressure 129/77 138/81 O2 Sat by Pulse Oximetry - Labs CBC & Chem 7: 01/10/17 05:05 01/13/17 10:25 Labs: Abnormal lab results 01/07/17 01/12/17 01/12/17 Range/Units 11:49 21:01 23:40 Sodium (137-145) mmol/L Chloride (98-107) mmol/L BUN (9-20) mg/dL Creatinine (0.8-1.5) mg/dL Glucose (75-100) mg/dL POC Glucose 181 H 159 H (70-105) Albumin 3.2 L (3.8-4.8) g/dL [id number] 0.4 H (0.2-0.3) g/dL PEP Interpretation see below H 01/13/17 01/13/17 01/13/17 Range/Units 06:35 10:25 11:35 Sodium 136 L (137-145) mmol/L Chloride 94.3 L (98-107) mmol/L BUN 31 H (9-20) mg/dL Creatinine 6.2 H (0.8-1.5) mg/dL Glucose 158 H (75-100) mg/dL POC Glucose 216 H 154 H (70-105) Albumin (3.8-4.8) g/dL [id number] (0.2-0.3) g/dL PEP Interpretation
[2017-01-13] MEDS: APRESOLINE PO SCH (17:15)
[2017-01-13] MEDS: LOVENOX SUB-Q SCH (17:16)
[2017-01-13] MEDS: MEGACE PO SCH (17:17)
[2017-01-13] MEDS: ZITHROMAX PO SCH (17:17)
[2017-01-13] MEDS: LASIX PO SCH (18:21)
--- NOTE | 2017-01-14 01:18 | Cat Scan Report ---
FINAL REPORT EXAM: CT HEAD/BRAIN WO CON HISTORY: change in condition TECHNIQUE: Routine axial imaging was obtained of the brain without IV contrast. There are no previous CT scans of the brain available for comparison. FINDINGS: There are multiple low-density foci in the periventricular white matter bilaterally. With these represent foci of demyelination versus lacunar infarcts is uncertain. There is no evidence of acute stroke or hemorrhage otherwise. The ventricular system is appropriate in size and is symmetric. The posterior fossa structures appear well maintained. The sinuses reveal a small polyp in the left sphenoid sinus. The mastoid air cells are well pneumatized. IMPRESSION: No evidence of acute stroke or hemorrhage. Multiple small foci of diminished attenuation in the periventricular white matter as described. Whether these are related to demyelinating disease versus remote lacunar infarct is uncertain.
[2017-01-14 07:11] LABS: Potassium 5.9 mmol/L (3.6-5.0)
--- NOTE | 2017-01-14 09:22 | Progress Note ---
Assessment and Plan - Patient Problems (1) Chronic kidney disease, stage V Current Visit: Yes Status: Acute Plan to address problem: Chronic kidney disease secondary to hypertensive nephrosclerosis. It appears Patient has chronic kidney disease which has progressed to end-stage renal disease. Kidney indices improved with dialysis. Plan is to do peritoneal dialysis as an outpatient. Patient has been cleared by ag service manager for PD catheter placement. Patient wants to do peritoneal dialysis but his sisters do not wanting to have any procedures done here and want to take him to [place]. I will call sister today as patient will need a permacath placed. It we'll be easier for him to transition to [place] on peritoneal dialysis also since he has no insurance it will be difficult to place him at an outpatient clinic for hemodialysis. Potassium high today ? Had dialysis yesterday. ? Lab error. Repeat and if it is still high, will need Dialysis (2) Anemia in chronic kidney disease Current Visit: Yes Status: Acute Plan to address problem: Continue Erythropoetin on dialysis. Follow-up hemoglobin (3) Acute heart failure Current Visit: Yes Status: Acute Plan to address problem: Combined systolic and diastolic heart failure. Patient with inadequate response to diuretics. Improved volume status with dialysis. (4) Hypertensive emergency Current Visit: Yes Status: Acute Plan to address problem: Blood pressure has improved. Continue current medications. Continue other management (5) Type 2 diabetes mellitus with diabetic chronic kidney disease Current Visit: Yes Status: Chronic Qualifiers: Diabetes mellitus termite technician insulin use: with termite technician use Chronic kidney disease stage: stage 5, not on chronic dialysis Qualified Code(s): E11.22 - Type 2 diabetes mellitus with diabetic chronic kidney disease; N18.5 - Chronic kidney disease, stage 5; N18.5 - Chronic kidney disease, stage 5; N18.5 - Chronic kidney disease, stage 5; N18.5 - Chronic kidney disease, stage 5; Z79.4 - regional intermodal truck driver (current) use of insulin; Z79.4 - snf (current) use of insulin ; Z79.4 - snf (current) use of insulin; Z79.4 - regional intermodal truck driver (current) use of insulin Plan to address problem: Blood sugar management by primary attending (6) Altered mental state Current Visit: Yes Status: Acute Plan to address problem: Mental status worse. Needs Neuro follow up Subjective Date of service: 01/14/17 Principal diagnosis: ESRD PNA CHF Interval history: Patient seen lying in bed. He has no complaints this morning. He is not speaking this morning though. Objective - Exam Narrative Exam: Middle aged -[place] male lying in bed in no acute distress HEENT: NCAT, pink oral mucous membrane Neck: Supple, no venous distention CVS: S1S2 RRR with no murmur, rub or gallop Chest: Clear to auscultation Abdomen: Protuberant, soft, nontender, no organomegaly, bowel sounds are present Extremities: No edema Neuro: Nonverbal, not following commands. No focal deficits - Vital Signs Vital signs: Vital Signs - 12hr 01/14/17 01/14/17 04:57 07:37 Temperature 98.2 F 97.1 F L Pulse Rate 101 H Respiratory 16 20 Rate Blood Pressure 94/66 118/79 O2 Sat by Pulse 96 Oximetry - Lab 01/10/17 05:05 01/14/17 06:13 Most recent lab results Calcium 10.0 mg/dL (8.4-10.2) 01/14/17 06:13 Phosphorus 4.80 mg/dL (2.5-4.5) H 01/08/17 04:14 Magnesium 2.00 mg/dL (1.7-2.3) 01/09/17 16:12 Urine Creatinine 112.9 mg/dL (0.1-20.0) H 01/05/17 20:53 Urine Sodium 54 mmol/L 01/05/17 20:53 Urine Total Protein 248 mg/dL (5-11.8) H 01/05/17 20:53
[2017-01-14] MEDS ORDERED: D50W (25GM) Syringe IV ONE (11:30)
--- NOTE | 2017-01-14 11:35 | Progress Note ---
Subjective Date of service: 01/14/17 Principal diagnosis: ESRD PNA CHF Interval history: NEURO FOLLOW UP NOTE: Spoke with patients ex- + his daughter in room. The report that patient was very alert Tuesday, talking normally and without hesitation, working his i- phone and downloading a movie from [employer] for his children to watch, remonstrating with his young sons to mind their mother, etc. .... underscoring that the abnormalities in his head on MRI, while present, account for none of his symptoms. Today, after dialysis ending 5 pm yesterday, patient is lethargic, exhausted, drowsy, and not following commands. No focal abnormality is evident. CTA of neck showed no sig carotid stenosis or lesions.(done in pursuit of stroke workup) MRI of C-spine done without contrast (because of renal failure) showed only degenerative chanages, no intrinsic cord lesions (done in pursuit of MS workup) He could not tolerate T- or LS- spine MRI. DX IMP: 1. Encephalopathy secondary to renal failure (Creat 6.6), dialysis (with ionic shifts across CHEESEMAKER HELPER cell membranes which can take days to re-equilibrate) 2. End state renal disease recently discovered, now being treated with HD 3. Hypertension 4. MRI brain findings consistent with MS, incidentally discovered, without hx of prior sx, and needing work up when diagnoses 1. and 2. are further managed. RECC: 1. OK to transfer to [facility] from neuro point of view where he will need MS work up to include likely repeat MRI of head with and without contrast, MR studies of whole spine, CSF exam for MS panel, etc. 2. Go from there. Call as needed. Migue Cummings MD Objective - Vital Sign Vital Signs - 12hr 01/14/17 01/14/17 04:57 07:37 Temperature 98.2 F 97.1 F L Pulse Rate 101 H Respiratory 16 20 Rate Blood Pressure 94/66 118/79 O2 Sat by Pulse 96 Oximetry - Laboratory Findings CBC and BMP: 01/10/17 05:05 01/14/17 09:44 Abnormal Lab Findings: Abnormal Labs 01/04/17 01/05/17 01/05/17 23:30 02:35 02:35 RBC Hgb Hct Lymph % (Auto) Ralls % (Auto) Lymph # Ralls # Seg Neutrophils % Seg Neutrophils # D-Dimer 6567.37 H Sodium Potassium Chloride 96.2 L BUN 44 H Creatinine 5.5 H Glucose 289 H POC Glucose Hemoglobin A1c Phosphorus Troponin T 0.076 H NT-Pro-B Natriuret Pep 4126 H Total Protein Albumin Znaba-9-Ryulqxzan PEP Interpretation HDL Cholesterol 60 H PTH Intact Urine Creatinine Urine Total Protein 01/05/17 01/05/17 01/05/17 17:34 20:09 20:33 RBC Hgb Hct Lymph % (Auto) Ralls % (Auto) Lymph # Ralls # Seg Neutrophils % Seg Neutrophils # D-Dimer Sodium Potassium Chloride BUN Creatinine Glucose POC Glucose 199 H 190 H Hemoglobin A1c Phosphorus Troponin T 0.090 H NT-Pro-B Natriuret Pep Total Protein Albumin Sznyb-4-Hltklffgl PEP Interpretation HDL Cholesterol PTH Intact Urine Creatinine Urine Total Protein 01/05/17 01/06/17 01/06/17 20:53 05:47 05:47 RBC 3.44 L Hgb 10.4 L Hct 30.3 L Lymph % (Auto) 11.7 L Ralls % (Auto) 9.1 H Lymph # 1.0 L Ralls # Seg Neutrophils % 78.3 H Seg Neutrophils # D-Dimer Sodium Potassium Chloride BUN 46 H Creatinine 5.7 H Glucose 129 H POC Glucose Hemoglobin A1c Phosphorus Troponin T NT-Pro-B Natriuret Pep Total Protein Albumin Wpfjp-2-Dtdrviuwk PEP Interpretation HDL Cholesterol PTH Intact Urine Creatinine 112.9 H Urine Total Protein 248 H 01/06/17 01/06/17 01/06/17 06:00 11:49 16:56 RBC Hgb Hct Lymph % (Auto) Ralls % (Auto) Lymph # Ralls # Seg Neutrophils % Seg Neutrophils # D-Dimer Sodium Potassium Chloride BUN Creatinine Glucose POC Glucose 165 H 149 H Hemoglobin A1c 8.0 H Phosphorus Troponin T NT-Pro-B Natriuret Pep Total Protein Albumin Mberv-8-Rnysfqvtt PEP Interpretation HDL Cholesterol PTH Intact Urine Creatinine Urine Total Protein 01/06/17 01/07/17 01/07/17 21:41 06:00 06:00 RBC 3.59 L Hgb 10.7 L Hct 31.9 L Lymph % (Auto) Ralls % (Auto) Lymph # Ralls # Seg Neutrophils % Seg Neutrophils # D-Dimer Sodium Potassium Chloride BUN 50 H Creatinine 6.2 H Glucose 139 H POC Glucose 109 H Hemoglobin A1c Phosphorus Troponin T NT-Pro-B Natriuret Pep Total Protein Albumin Xvfot-5-Jpokbfaxc PEP Interpretation HDL Cholesterol PTH Intact Urine Creatinine Urine Total Protein 01/07/17 01/07/17 01/07/17 08:01 11:49 12:11 RBC Hgb Hct Lymph % (Auto) Ralls % (Auto) Lymph # Ralls # Seg Neutrophils % Seg Neutrophils # D-Dimer Sodium Potassium Chloride BUN Creatinine Glucose POC Glucose 130 H 170 H Hemoglobin A1c Phosphorus Troponin T NT-Pro-B Natriuret Pep Total Protein Albumin 3.2 L Yifar-7-Pwfozkrxm 0.4 H PEP Interpretation see below H HDL Cholesterol PTH Intact Urine Creatinine Urine Total Protein 01/07/17 01/08/17 01/08/17 21:07 04:14 04:14 RBC 3.59 L Hgb 10.9 L Hct 31.7 L Lymph % (Auto) 9.4 L Ralls % (Auto) 11.7 H Lymph # 1.0 L Ralls # 1.2 H Seg Neutrophils % 78.3 H Seg Neutrophils # 7.9 H D-Dimer Sodium 136 L Potassium Chloride 96.3 L BUN 37 H Creatinine 5.7 H Glucose 164 H POC Glucose 172 H Hemoglobin A1c Phosphorus Troponin T NT-Pro-B Natriuret Pep Total Protein Albumin Xsivp-3-Cmmvuvtpd PEP Interpretation HDL Cholesterol PTH Intact Urine Creatinine Urine Total Protein 01/08/17 01/08/17 01/08/17 04:14 04:14 07:40 RBC Hgb Hct Lymph % (Auto) Ralls % (Auto) Lymph # Ralls # Seg Neutrophils % Seg Neutrophils # D-Dimer Sodium Potassium Chloride BUN Creatinine Glucose POC Glucose 168 H Hemoglobin A1c Phosphorus 4.80 H Troponin T NT-Pro-B Natriuret Pep Total Protein Albumin Xtccd-7-Osapkjdak PEP Interpretation HDL Cholesterol PTH Intact 195.6 H Urine Creatinine Urine Total Protein 01/08/17 01/08/17 01/08/17 12:22 16:29 22:20 RBC Hgb Hct Lymph % (Auto) Ralls % (Auto) Lymph # Ralls # Seg Neutrophils % Seg Neutrophils # D-Dimer Sodium Potassium Chloride BUN Creatinine Glucose POC Glucose 234 H 119 H 162 H Hemoglobin A1c Phosphorus Troponin T NT-Pro-B Natriuret Pep Total Protein Albumin Qlkpt-4-Byjusrnvh PEP Interpretation HDL Cholesterol PTH Intact Urine Creatinine Urine Total Protein 01/09/17 01/09/17 01/09/17 08:11 12:10 16:12 RBC Hgb Hct Lymph % (Auto) Ralls % (Auto) Lymph # Ralls # Seg Neutrophils % Seg Neutrophils # D-Dimer Sodium Potassium Chloride BUN 37 H Creatinine 6.1 H Glucose 131 H POC Glucose 143 H 234 H Hemoglobin A1c Phosphorus Troponin T NT-Pro-B Natriuret Pep Total Protein 6.2 L Albumin 3.3 L Lvddk-8-Gctpvzcdz PEP Interpretation HDL Cholesterol PTH Intact Urine Creatinine Urine Total Protein 01/09/17 01/09/17 01/10/17 17:20 20:48 05:05 RBC 3.64 L Hgb 11.0 L Hct 32.2 L Lymph % (Auto) Ralls % (Auto) 10.9 H Lymph # Ralls # 1.1 H Seg Neutrophils % 72.1 H Seg Neutrophils # D-Dimer Sodium Potassium Chloride BUN Creatinine Glucose POC Glucose 122 H 135 H Hemoglobin A1c Phosphorus Troponin T NT-Pro-B Natriuret Pep Total Protein Albumin Iukov-6-Gtpepwrqe PEP Interpretation HDL Cholesterol PTH Intact Urine Creatinine Urine Total Protein 01/10/17 01/10/17 01/10/17 05:05 08:28 13:34 RBC Hgb Hct Lymph % (Auto) Ralls % (Auto) Lymph # Ralls # Seg Neutrophils % Seg Neutrophils # D-Dimer Sodium Potassium Chloride BUN 44 H Creatinine 7.1 H Glucose 114 H POC Glucose 131 H 227 H Hemoglobin A1c Phosphorus Troponin T NT-Pro-B Natriuret Pep Total Protein Albumin Irizy-1-Oevylxgfn PEP Interpretation HDL Cholesterol PTH Intact Urine Creatinine Urine Total Protein 01/10/17 01/10/17 01/11/17 17:35 21:58 04:53 RBC Hgb Hct Lymph % (Auto) Ralls % (Auto) Lymph # Ralls # Seg Neutrophils % Seg Neutrophils # D-Dimer Sodium Potassium Chloride BUN 51 H Creatinine 7.3 H Glucose 120 H POC Glucose 142 H 143 H Hemoglobin A1c Phosphorus Troponin T NT-Pro-B Natriuret Pep Total Protein Albumin Rsymy-8-Fsnkzwyis PEP Interpretation HDL Cholesterol PTH Intact Urine Creatinine Urine Total Protein 01/11/17 01/11/17 01/12/17 04:53 21:53 08:01 RBC Hgb Hct Lymph % (Auto) Ralls % (Auto) Lymph # Ralls # Seg Neutrophils % Seg Neutrophils # D-Dimer Sodium Potassium Chloride BUN Creatinine Glucose POC Glucose 207 H 111 H Hemoglobin A1c Phosphorus Troponin T 0.119 H* NT-Pro-B Natriuret Pep Total Protein Albumin Kwqor-4-Srqhdizer PEP Interpretation HDL Cholesterol PTH Intact Urine Creatinine Urine Total Protein 01/12/17 01/12/17 01/12/17 11:48 21:01 23:40 RBC Hgb Hct Lymph % (Auto) Ralls % (Auto) Lymph # Ralls # Seg Neutrophils % Seg Neutrophils # D-Dimer Sodium Potassium Chloride BUN Creatinine Glucose POC Glucose 115 H 181 H 159 H Hemoglobin A1c Phosphorus Troponin T NT-Pro-B Natriuret Pep Total Protein Albumin Uczmq-7-Ofcsgrbff PEP Interpretation HDL Cholesterol PTH Intact Urine Creatinine Urine Total Protein 01/13/17 01/13/17 01/13/17 06:35 10:25 11:35 RBC Hgb Hct Lymph % (Auto) Ralls % (Auto) Lymph # Ralls # Seg Neutrophils % Seg Neutrophils # D-Dimer Sodium 136 L Potassium Chloride 94.3 L BUN 31 H Creatinine 6.2 H Glucose 158 H POC Glucose 216 H 154 H Hemoglobin A1c Phosphorus Troponin T NT-Pro-B Natriuret Pep Total Protein Albumin Zbtfa-3-Lpqtmlyvk PEP Interpretation HDL Cholesterol PTH Intact Urine Creatinine Urine Total Protein 01/13/17 01/13/17 01/14/17 18:52 22:34 06:13 RBC Hgb Hct Lymph % (Auto) Ralls % (Auto) Lymph # Ralls # Seg Neutrophils % Seg Neutrophils # D-Dimer Sodium Potassium 5.9 H Chloride 92.0 L BUN 31 H Creatinine 6.6 H Glucose 169 H POC Glucose 182 H 144 H Hemoglobin A1c Phosphorus Troponin T NT-Pro-B Natriuret Pep Total Protein Albumin Zzukz-3-Sxhykplde PEP Interpretation HDL Cholesterol PTH Intact Urine Creatinine Urine Total Protein 01/14/17 01/14/17 06:20 09:44 RBC Hgb Hct Lymph % (Auto) Ralls % (Auto) Lymph # Ralls # Seg Neutrophils % Seg Neutrophils # D-Dimer Sodium Potassium 6.1 H* Chloride BUN Creatinine Glucose POC Glucose 161 H Hemoglobin A1c Phosphorus Troponin T NT-Pro-B Natriuret Pep Total Protein Albumin Cwdmr-0-Epnudbwor PEP Interpretation HDL Cholesterol PTH Intact Urine Creatinine Urine Total Protein
[2017-01-14] MEDS ORDERED: CALCIUM GLUCONATE 1,000 MG in NACL 0.9% 100 ML IV ONE (12:00)
[2017-01-14] MEDS: NOVOLOG SUB-Q SCH ×4 (13:07→20:40)
--- NOTE | 2017-01-14 14:58 | XRay Report ---
Single view abdomen: History: Dobbhoff placement. Findings: Tip of Dobbhoff feeding tube is noted in the fundus of the stomach. Impression: Tip of the elbow feeding tube is in fundus of stomach.
[2017-01-14] MEDS: APRESOLINE PO SCH ×4 (15:08→21:50)
[2017-01-14] MEDS: COREG PO SCH ×4 (15:08→22:45)
[2017-01-14] MEDS: IMDUR PO SCH (15:09)
[2017-01-14] MEDS: ZITHROMAX PO SCH (15:10)
[2017-01-14] MEDS ORDERED: SIMPLE SYRUP FEEDTUBE PRN ×2 (16:37)
[2017-01-14] MEDS ORDERED: PANCREAZE DR 10,500 UNIT FEEDTUBE PRN (16:37)
[2017-01-14] MEDS ORDERED: SODIUM BICARBONATE FEEDTUBE PRN (16:37)
--- NOTE | 2017-01-14 16:37 | Progress Note ---
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 Patient only could complete Cervical MRI as he could not lay flat. CTA head was normal and cervical MRI showed degenerative disease. Patient was dialyzed after CTA /Altered level of consciousness/minimal communication; rosi due to Uremia and malignant HTN became lethargic today cont supportive care his k was 6.1, ordered kayexalate with dobhoff, D50/insulin, calcium gluconate /hyperkalemia likely from CKD ordered kayexalate with dobhoff, D50/insulin, calcium gluconate will follow level /Poor oral intake - added megace and nutrition boost - did not participate in the speech eval, will place dobhoff and start TF /Hypertensive urgency; at the time of admission Blood pressure moderate control Continue current antihypertensive medications . 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 --DC planning per case management: Possible transfer to [place] as requested by the sisters. Updated Mrs. Ronda Bryan by phone and discussed the findings of MRI, recommendations by neurologist, patient's condition, treatment plan in detail, answered all her questions, she verbalized understanding Hospitalist Physical General appearance: Present: lethargic - EENT Eyes: Present: PERRL, EOM intact ENT: hearing intact - Neck Neck: Present: supple, normal ROM - Respiratory Respiratory effort: normal Respiratory: negative: rales, rhonchi, wheezing - Cardiovascular Rhythm: regular Heart Sounds: Present: S1 & S2 - Extremities Extremities: no ischemia, No edema, normal temperature - Abdominal General gastrointestinal: soft, non-tender, non-distended, normal bowel sounds - Integumentary Integumentary: Present: clear, warm - Psychiatric Psychiatric: anxious - Neurologic Neurologic: moves all extremities Subjective Date of service: 01/14/17 Principal diagnosis: ESRD PNA CHF Interval history: Patient seen and evaluated in his room this morning, Medical records reviewed patient is lethargic, exhausted, drowsy, and not following commands. No focal abnormality is evident. discussed with patient's family at bedside, discussed with neurologist Updated sister at [place] by phone Objective - Constitutional Vitals: Vital Signs - 12hr 01/14/17 01/14/17 04:57 07:37 Temperature 98.2 F 97.1 F L Pulse Rate 101 H Respiratory 16 20 Rate Blood Pressure 94/66 118/79 O2 Sat by Pulse 96 Oximetry - Labs CBC & Chem 7: 01/15/17 06:22 01/15/17 06:22 Labs: Abnormal lab results 01/13/17 01/13/17 01/14/17 Range/Units 18:52 22:34 06:13 Potassium 5.9 H (3.6-5.0) mmol/L Chloride 92.0 L (98-107) mmol/L BUN 31 H (9-20) mg/dL Creatinine 6.6 H (0.8-1.5) mg/dL Glucose 169 H (75-100) mg/dL POC Glucose 182 H 144 H (70-105) 01/14/17 01/14/17 01/14/17 Range/Units 06:20 09:44 11:26 Potassium 6.1 H* (3.6-5.0) mmol/L Chloride (98-107) mmol/L BUN (9-20) mg/dL Creatinine (0.8-1.5) mg/dL Glucose (75-100) mg/dL POC Glucose 161 H 316 H (70-105) 01/14/17 Range/Units 13:58 Potassium 5.5 H (3.6-5.0) mmol/L Chloride (98-107) mmol/L BUN (9-20) mg/dL Creatinine (0.8-1.5) mg/dL Glucose (75-100) mg/dL POC Glucose (70-105)
[2017-01-14] MEDS: LASIX PO SCH ×3 (20:34→21:50)
[2017-01-14] MEDS: LEVEMIR SUB-Q SCH ×3 (20:41→22:30)
[2017-01-14] MEDS: ZESTRIL PO SCH (20:42)
[2017-01-14] MEDS: MEGACE PO SCH (20:42)
[2017-01-14] MEDS: LOVENOX SUB-Q SCH (20:42)
[2017-01-14] MEDS: TYLENOL PO PRN (22:10)
[2017-01-15] MEDS: NOVOLOG SUB-Q SCH (01:34)
[2017-01-15] MEDS: LASIX PO SCH (05:22)
[2017-01-15] MEDS: APRESOLINE PO SCH (05:22)
[2017-01-15] MEDS: TYLENOL PO PRN (05:32)
[2017-01-15 06:51] LABS: Basophils % (Auto) 0.3 % (0.0-1.8); Eosinophils % (Auto) 0.2 % (0.0-4.3); Hematocrit 43.2 % (35.5-45.6); Hemoglobin 14.1 gm/dl (11.8-15.2); Mean Corpuscular HGB Conc 33 % (32-34); Mean Corpuscular Hemoglobin 29 pg (28-32); Mean Corpuscular Volume 88 fl (84-94); Platelet Count 330 K/mm3 (140-440); Red Blood Count 4.94 M/mm3 (3.65-5.03); Red Cell Distribution Width 14.1 % (13.2-15.2); White Blood Count 13.2 K/mm3 (4.5-11.0)
[2017-01-15 07:17] VITALS: BP 101/67
[2017-01-15 07:20] LABS: Albumin 4.1 g/dL (3.9-5); Albumin/Globulin Ratio 0.9 %; Bilirubin,Total 0.5 mg/dL (0.1-1.2); Calcium 9.7 mg/dL (8.4-10.2); Chloride 88.4 mmol/L (98-107); Total Protein 8.9 g/dL (6.3-8.2)
--- NOTE | 2017-01-15 07:36 | Event Note ---
EDMD CODE BLUE note Called to floor for cardiac arrest in progress. Per nursing the patient became unresponsive. As I enter the room the patient is being bagged by staff and being placed on a monitor. property assessment monitor reveals asystole, ACLS protocols initiated. Patient was intubated by myself The patient was intubated via orotracheal route using a 8.0 mm endotracheal tube. Rapid sequence induction was not used. Positioning was confirmed using auscultation and CO2 detector. Oropharynx is filled with copious yellow fluid requiring suctioning prior to intubation Cardiovascular: No heart sounds, asystole on monitor Pulmonary: No spontaneous respirations. Breath sounds equal bilaterally with bagging after intubation Neuro: GCS 3T Case discussed with Dr. Hao Rachel at the bedside. Patient left in the care of Dr. Hao Rachel
[2017-01-15 07:37] LABS: Potassium 7.7 mmol/L (3.6-5.0)
--- NOTE | 2017-01-15 10:58 | Progress Note ---
Subjective Principal diagnosis: ESRD PNA CHF Objective - Vital Signs Vital signs: Vital Signs - 12hr 01/15/17 07:12 Temperature 103.0 F H Pulse Rate 102 H Respiratory 24 Rate Blood Pressure 101/67 [Left] O2 Sat by Pulse 99 Oximetry - Lab 01/15/17 06:22 01/15/17 06:22 Most recent lab results Calcium 9.7 mg/dL (8.4-10.2) 01/15/17 06:22 Phosphorus 4.80 mg/dL (2.5-4.5) H 01/08/17 04:14 Magnesium 2.00 mg/dL (1.7-2.3) 01/09/17 16:12 Urine Creatinine 112.9 mg/dL (0.1-20.0) H 01/05/17 20:53 Urine Sodium 54 mmol/L 01/05/17 20:53 Urine Total Protein 248 mg/dL (5-11.8) H 01/05/17 20:53
[2017-01-15] MEDS ORDERED: PANCREAZE DR 10,500 UNIT FEEDTUBE PRN (11:31)
[2017-01-15] MEDS ORDERED: SODIUM BICARBONATE FEEDTUBE PRN (11:31)
[2017-01-15] MEDS ORDERED: SIMPLE SYRUP FEEDTUBE PRN ×2 (11:31)
--- NOTE | 2017-01-15 11:31 | Death Summary ---
Summary - Providers Date of service: 01/15/17 Consults: 01/05/17 08:35 Consult to Physician [CONS] Routine Consulting Provider: JAYLYN SOUSA Reason For Exam: acute renal failure. Place consult to:: Dr. Sousa Notified:: Carine OLIVERA Phone number called:: Was contact made?: Yes If yes, spoke with:: Abel vázquez Time called:: 17:46 01/07/17 11:22 Consult to Interventional Radiology [CONS] Routine Consulting Provider: ADRIANA WHITLEY Reason For Exam: permcath placement for AMY on CKD, needing HD Place consult to:: vascular Notified:: yes Was contact made?: Yes If yes, spoke with:: Dr Ramirez Time called:: 12:02 01/07/17 15:41 Consult to Physician [CONS] Routine Consulting Provider: NOBLE GREEN Reason For Exam: peritoneal catheter evaluation Place consult to:: surgery [facility] Notified:: [facility] Phone number called:: [phone] Was contact made?: Yes If yes, spoke with:: shabbir Time called:: 18:06 01/10/17 08:19 Consult to Dietitian/Nutrition [CONS] Routine Physician Instructions: Reason For Exam: Reason for Consult: Poor oral intake 01/11/17 15:10 Speech Therapy Evaluation and Treat [CONS] Routine Reason For Exam: pain with swallow/ question cva 01/11/17 20:21 Consult to Physician [CONS] Routine Consulting Provider: YVONNE IVORY Reason For Exam: Multiple sclerosis [on MRI] Place consult to:: Dr. York Notified:: Carine OLIVERA 01/14/17 08:08 Consult to Physician [CONS] Routine Consulting Provider: SUE SEVILLA Reason For Exam: depression Place consult to:: psych Notified:: Phone number called:: [phone] Was contact made?: Yes If yes, spoke with:: valentina Time called:: 11:29 Physical Therapy Evaluation and Treat [CONS] Routine Comment: Reason For Exam: placement 01/14/17 16:37 Consult to Dietitian/Nutrition [CONS] Routine Physician Instructions: Assess nutrtn needs, initiate, modify, manage TF Reason For Exam: Reason for Consult: Write/Manage Tube Feeding Reason for Consult: Write/Manage Tube Feeding Attending: LENARD VILLEGAS - summary Date of admission: 01/05/17 08:24 Date of : 01/15/17 Procedures/treatments rendered: This is a 53 years old [place] male with past medical history hypertension, type 2 DM, congestive heart failure, who did not have regular medical follow up for years since he does not have insurance, who presents to the Emergency Department with shortness of breath, dyspnea on exertion, chest tigntness and b/l lower extremity swelling for the last few weeks. In ER patient was found to have accelerated hypertension with BP as high as 233/125s mmHg, CXR/CT cheat showed evidence of pulmonary edema, and labs showed elevated BUN/Cr at 46/5.7mg/dl. Patient is not aware of any kidney problems in the past , denies recent NSAIDs use or IV contrast exposure, fevers, chills, or night sweats, no history of recurrent pneumonia, no sick contact, TB exposure. Patient reported frequent nausea and non-bloody, non-bilious vomiting 1-2 times weekly along with increased urinary frequency, but decreased volume over the past few months. Patient also stated non-compliance with his antihypertensive medications for the past 5 month due to financial difficulties. According to the family (Pt's sister) he was treated for acute stroke and new onset DM about one and half years ago at [facility] and was recommended by the physician to take insulin for DM, but patient didnot continue his insulin. Following presenting to the hospital he was placed on empiric antibiotic for presumed pneumonia, started on antihypertensive to control his blood pressure, and placed on IV fluid for his declining renal function. But his urine output did not improve with IV fluid hydration, nephrology was consulted and recommended to place on diuretics. His volume status did not improve with the diuretics then he was started on hemodialysis. His hemoglobin A1c noted to be 8 and he was placed on insulin. Patient was having poor appetite and less overall oral intake. Family came to visit the patient from [id number] and according to them patient was not at his baseline. Family informed that patient was not as communicative as he used to be. Family requested stroke workup as he also had history of stroke prior. A MRI of the brain obtained which showed multiple white matter signal hyperintensities, acute diffusion restriction which are bilateral and the pattern is most suggestive of multiple sclerosis plaques with areas of active plaques present. Neurologically was consulted and recommended to obtain MRI of cervical thoracic and lumbar spine to further evaluated the patient. Neurology also suggested that the MRI findings does not explain patient's symptom and his slowness in speech most likely secondary to acute renal failure. Patient family was updated on daily basis. His mental status seemed to be stable and vitals also remained stable. But he could not complete the MRI study for the entire spine. He was noted to be alert, awake and oriented to time place and person on physical exam on 01/13/17. He had dialysis on the same day afternoon and according to the nursing staff he noted to be more lethargic following HD. On 01/13/2017 family member came to visit the patient and according to them and par the nursing staff patient's mental status seemed to be declining. A stat head CT obtained in the evening was and did not show any acute changes. Patient was kept nothing by mouth and speech therapy evaluation was recommended. But the patient did not participate in this speech eval. He was placed on Dobbhoff tube for nutritional support and to provide medications on 01/14/2017. His potassium level also noted to be elevated to 6.1. He was given insulin D50 calcium gluconate and his potassium level came down to 5.5. Nephrology evaluated him and did not recommend any dialysis on that day. Tube feeding was started and patient was tolerating. On the morning of 01/15/2017 patient noted with shallow breathing and patient did not respond to tactile or verbal stimuli. Code MED was called. During the code MED patient noted to be with agonal breathing and on monitor his heart rhythm presented as PEA/asystole. ACLS initiated immediately. Cross cover physician Dr. Rachel responded to the code and ER physician intubated the patient during the code. Please refer to the code sheet for details. His potassium level noted to be 7.7. He was given sodium bicarbonate, insulin D50, calcium gluconate and multiple rounds of epinephrine. Code was conducted more than 30 minutes but unable to gain pulse. Unfortunately Patient was pronounced . Family was updated at bedside. Thorough discussion was made with the family members in the presence of RN. Cause of : Cardiorespiratory arrest likely secondary to electrolyte imbalance due to end-stage renal disease. Pertinent studies: Chest x-ray on 01/04/2017 V/Q scan on 01/05/[address] without contrast on 01/05/[address] without contrast on 01/05/2017 Preoperative ultrasound 01/05/2017 Duplex scan and lower extremity artery 01/05/2017 Vascular ultrasound on 01/07/2017 and 01/08/2017 Brain MRI 01/10/2017 Next CTA 01/12/2017 Cervical MRI without contrast 01/13/[address] without contrast 01/13/2017 Abdomen x-ray 01/14/2017 Myocardial stress test 01/12/2017 2-D echocardiogram 01/05/2017 - Final diagnosis (1) Cardiac arrest Note: Final diagnosis: (2) Acute respiratory failure Qualifiers: Respiratory failure complication: unspecified whether with hypoxia or hypercapnia Qualified Code(s): J96.00 - Acute respiratory failure, unspecified whether with hypoxia or hypercapnia Note: Final diagnosis: (3) Altered mental state Qualifiers: Altered mental status type: disorientation Qualified Code(s): R41.0 - Disorientation, unspecified Note: Final diagnosis: (4) Chronic kidney disease, stage V Note: Final diagnosis: (5) Hypertensive emergency Note: Final diagnosis: (6) Type 2 diabetes mellitus with diabetic chronic kidney disease Qualifiers: Diabetes mellitus long-term insulin use: with long-term use Chronic kidney disease stage: stage 5, not on chronic dialysis Qualified Code(s): E11.22 - Type 2 diabetes mellitus with diabetic chronic kidney disease; N18.5 - Chronic kidney disease, stage 5; N18.5 - Chronic kidney disease, stage 5; N18.5 - Chronic kidney disease, stage 5; N18.5 - Chronic kidney disease, stage 5; Z79.4 - detention (current) use of insulin; Z79.4 - detention (current) use of insulin ; Z79.4 - detention (current) use of insulin; Z79.4 - rat exterminator (current) use of insulin Note: Final diagnosis: (7) Acute CHF Qualifiers: Congestive heart failure type: systolic Qualified Code(s): I50.21 - Acute systolic (congestive) heart failure Note: Final diagnosis:
[2017-01-15] MEDS ORDERED: SODIUM BICARBONATE IV ONE (13:59)
[2017-01-15] MEDS ORDERED: ADRENALIN ONE (13:59)
[2017-01-15] MEDS ORDERED: D50W (25GM) Syringe IV ONE (13:59)
[2017-01-15] MEDS ORDERED: CALCIUM CHLORIDE IV ONE (13:59)
--- NOTE | 2017-01-15 15:33 | Event Note ---
Date: 01/15/17 I responded to a CODE BLUE in progress. I was the cross covering physician for the morning. Attending physician is Dr. Brown CODE FEDE was called at approximately 7:20 AM. Patient was found to have agonal respirations and subsequently developed PEA/asystole. Patient was intubated by the ER physician , Dr. arambula. ACLS protocol was followed. Please see code note for details. Patient received several rounds of epinephrine. Patient was noted to have hyperkalemia on labs at 7.2. Patient received insulin and glucose, calcium and bicarbonate. Patient did not have ROSC and unfortunately pronounced The high probability of a clinically significant, sudden or life threatening deterioration of the [cardiovascular and respiratory] system(s) required my full and direct attention, intervention and personal management. The aggregate critical care time was [42] minutes. This time is in addition to time spent performing reported procedures but includes the following: [x] Data Review and interpretation [x] Patient assessment and monitoring of vital signs [x] Documentation [x] Medication orders and management
== END 2017-01-15 18:23 ==
LOC: ED 22:15 → 4A 01-05 08:24 → 3A 01-12 17:02
PROVIDERS: ADMIT Internal Medicine; ATTEND Internal Medicine
PROC: 02H633Z Insertion of Infusion Device into Right Atrium, Percutaneous Approach (ICD-10-PCS; principal; 2017-01-07)
PROC: B2141ZZ Fluoroscopy of Right Heart using Low Osmolar Contrast (ICD-10-PCS; 2017-01-07)
PROC: 5A1D70Z Performance of Urinary Filtration, Intermittent, Less than 6 Hours Per Day (ICD-10-PCS; 2017-01-08)
PROC: 5A1D70Z Performance of Urinary Filtration, Intermittent, Less than 6 Hours Per Day (ICD-10-PCS; 2017-01-11)
PROC: 5A1D70Z Performance of Urinary Filtration, Intermittent, Less than 6 Hours Per Day (ICD-10-PCS; 2017-01-12)
PROC: 5A1D70Z Performance of Urinary Filtration, Intermittent, Less than 6 Hours Per Day (ICD-10-PCS; 2017-01-13)
DX: I13.2 Hypertensive heart and chronic kidney disease with heart failure and with stage 5 chronic kidney disease, or end stage renal disease (principal); J18.9 Pneumonia, unspecified organism; I21.A1 Myocardial infarction type 2; J96.01 Acute respiratory failure with hypoxia; N17.0 Acute kidney failure with tubular necrosis; I50.43 Acute on chronic combined systolic (congestive) and diastolic (congestive) heart failure; N18.6 End stage renal disease; G93.41 Metabolic encephalopathy; I16.1 Hypertensive emergency; J45.909 Unspecified asthma, uncomplicated; F17.200 Nicotine dependence, unspecified, uncomplicated; I16.0 Hypertensive urgency; E78.5 Hyperlipidemia, unspecified; E11.22 Type 2 diabetes mellitus with diabetic chronic kidney disease; I46.9 Cardiac arrest, cause unspecified; D63.1 Anemia in chronic kidney disease; Z86.73 Personal history of transient ischemic attack (TIA), and cerebral infarction without residual deficits; Z91.013 Allergy to seafood; Z82.49 Family history of ischemic heart disease and other diseases of the circulatory system
CPT/HCPCS: 36415; 36558; 70450; 70498; 70551; 71010; 71250; 72141; 74000; 74176; 76770; 76937; 77001; 78452; 78582; 80048; 80053; 80061; 80074; 81001; 82550; 82553; 82570; 82962; 83036; 83520; 83735; 83880; 83970; 84100; 84132; 84156; 84165; 84300; 84484; 85025; 85027; 85379; 86021; 86038; 86160; 89050; 93005; 93010; 93017; 93306; 93970; 94640; 94644; 96372; 96374; 96375; 99291; A9270-GY; A9502; A9540; A9558; C1750; C1751; J0171; J0360; J0456; J0610; J0690; J0696; J0885; J1644; J1650; J1815; J1818; J1940; J2405; J2785; J3010; J7030; J7050; Q9967